=== PATIENT | male | born 1965 | race Caucasian/White ===

== ENCOUNTER 2019-11-23 15:13 | Observation (INO) | payer MEDICARE, OTHER, SELFPAY ==
[2019-11-23 16:58] VITALS: BP 134/81; PULSE 62; RESP 16; TEMP 36.6; O2SAT 98; BMI 32.5
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
[2019-11-23 19:44] LABS: Basophils # 0.1 10^3/uL (0.0-0.1); Eosinophils # 0.3 10^3/uL (0.0-0.8); Hematocrit 51.4 % (42.0-52.0); Hemoglobin 17.2 g/dL (11.7-16.6); Lymphocytes % 47.7 %; Mean Corpuscular HGB Conc 33.5 g/dL (30.0-36.0); Mean Corpuscular Volume 86.5 fL (80-94); Mean Platelet Volume 9.9 fL (7.4-10.4); Monocytes # 0.5 10^3/uL (0.2-0.9); Monocytes % 6.4 %; Neutrophils # 3.5 10^3/uL (1.8-7.7); Neutrophils % 41.8 %; Nucleated Red Blood Cells % 0 %; Platelet Count 365 10^3/cmm (130-400); Red Blood Count 5.94 10^6/uL (4.1-5.3); Red Cell Distribution Width 12.3 % (12.1-15.1); White Blood Count 8.3 10^3/uL (4.0-10.0)
[2019-11-23 19:57] LABS: Alanine Aminotransferase 36 U/L (0-41); Albumin Level 5.2 g/dL (3.5-5.2); Alkaline Phosphatase 104 IU/L (40-130); Anion Gap 17.6 (5-19); Aspartate Amino Transferase 28 U/L (0-40); Blood Urea Nitrogen 13 mg/dL (6-20); Calcium 10.6 mg/Dl (8.6-10.0); Carbon Dioxide 27 mmol/L (22-29); Chloride 101 mmol/L (98-107); Globulin 3.1 g/dL (1.3-4.6); Glomerular Filtration Rate 77.3 mL/min (90-130); Glucose 121 mg/dL (74-109); Potassium 4.6 mmol/L (3.5-5.1); Sodium 141 mmol/L (136-145); Total Bilirubin 0.6 mg/dL (0.15-1.2); Total Protein 8.3 g/dL (6.6-8.7)
[2019-11-23] MEDS: iohexol 300 mg/mL 100 mL Btl 95 ML IV (20:08)
[2019-11-23 20:47] VITALS: BP 121/72; PULSE 78; RESP 16; O2SAT 96
[2019-11-23 21:06] VITALS: RESP 16
[2019-11-23] MEDS: morphine 4 mg/mL SDV 1 mL IVP (21:06)
--- NOTE | 2019-11-23 21:47 | ECG_ITS ---
Measurements Intervals [place] Rate: 56 P: 58 [place]: 170 QRS: 26 QRSD: 119 T: 53 QT: 420 QTc: 407 SINUS BRADYCARDIA POSSIBLE RIGHT VENTRICULAR CONDUCTION DELAY [RSR (QR) IN V1/V2] PROBABLE LATERAL MYOCARDIAL INFARCTION [35 ms Q WAVE IN I/aVL/V5/V6], OF IN INDETERMINATE AGE No previous ECG available for comparison Electronically Signed On 11-24-2019 17:33:22 CHILLER OPERATOR by Yesi Montemayor M.D. [id number]
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
--- NOTE | 2019-11-23 22:33 | PC.NURSE ---
Patient having seizure like activity and tremors. Patient speaking through tremors and stating that his neck is hurting very badly and his head is hurting.
[2019-11-23] MEDS: LORazepam 2 mg/mL INJ 1 mL (22:36)
[2019-11-23] MEDS: sodium chloride 0.9% 1,000 ML 999 ML IV (22:37)
--- NOTE | 2019-11-23 22:37 | PC.NURSE ---
Placed seizure padding on the patient's rails, and placed the patient on the property assessment monitor. is at bedside and requested water, water was given and was informed that the patient is unable to have food or drink at this time.
[2019-11-23 22:39] VITALS: BP 151/84; PULSE 69; RESP 12; O2SAT 96
[2019-11-23 22:50] LABS: Troponin(5th) Baseline 12 ng/mL (0-15)
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
[2019-11-23] MEDS: iodixanol 320 mg/mL 100mL Btl IV (23:10)
[2019-11-23 23:38] LABS: Creatine Phosphokinase 137 U/L (39-308)
--- NOTE | 2019-11-23 23:47 | ECG_ITS ---
Measurements Intervals [place] Rate: 69 P: 40 [place]: 148 QRS: 14 QRSD: 126 T: 44 QT: 415 QTc: 445 SINUS RHYTHM POSSIBLE RIGHT VENTRICULAR CONDUCTION DELAY [RSR (QR) IN V1/V2] LATERAL MYOCARDIAL INFARCTION , OF INDETERMINATE AGE [40+ ms Q WAVE AND/OR ST/T AB ABNORMALITY IN I/aVL/V5/V6] No previous ECG available for comparison Electronically Signed On 11-24-2019 22:26:15 REHAB CONSULTANT by João Kunz M.D. [id number]
[2019-11-24] VITALS (7 sets, daily range): BP systolic 106–163; BP diastolic 68–95; PULSE 57–68; RESP 14–20; TEMP 36.3–37; O2SAT 95–98
[2019-11-24 00:07] LABS: Glucose Point of Care 134 mg/dL (70-110)
[2019-11-24 00:14] LABS: Troponin 5 2HR 11.71 ng/mL (0-15)
[2019-11-24 00:15] LABS: Troponin 5 2HR Delta -0.29 ABS# (0-10)
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
[2019-11-24] MEDS: sodium chloride 0.9% 1,000 ML 200 ML IV (01:12)
--- NOTE | 2019-11-24 03:47 | ECG_ITS ---
Measurements Intervals [place] Rate: 54 P: 51 [place]: 174 QRS: 8 QRSD: 121 T: 40 QT: 410 QTc: 392 SINUS BRADYCARDIA POSSIBLE RIGHT VENTRICULAR CONDUCTION DELAY [RSR (QR) IN V1/V2] PROBABLE LATERAL MYOCARDIAL INFARCTION [35 ms Q WAVE IN I/aVL/V5/V6], OF INDETERMINATE AGE No previous ECG available for comparison Electronically Signed On 11-24-2019 22:27:06 CORRECTIONS OFFICER by João Kunz M.D. [id number]
[2019-11-24 03:54] LABS: Anion Gap 13.6 (5-19); Blood Urea Nitrogen 14 mg/dL (6-20); Calcium 9.5 mg/Dl (8.6-10.0); Carbon Dioxide 25 mmol/L (22-29); Chloride 102 mmol/L (98-107); Glomerular Filtration Rate 87.3 mL/min (90-130); Glucose 183 mg/dL (74-109); Potassium 4.6 mmol/L (3.5-5.1); Sodium 136 mmol/L (136-145)
[2019-11-24] MEDS: HYDROcodone-acetaminophen 5-325 mg Tablet 1 TAB PO ×3 (04:11→12:34)
[2019-11-24] MEDS: sodium chloride 0.9% 1,000 ML 75 ML IV ×2 (04:13→11:14)
[2019-11-24 04:32] LABS: Basophils % 0.4 %; Eosinophils % 0.4 %; Hematocrit 46.1 % (42.0-52.0); Hemoglobin 15.5 g/dL (11.7-16.6); Lymphocytes # 2.3 10^3/uL (0.8-4.8); Lymphocytes % 23.6 %; Mean Corpuscular HGB Conc 33.6 g/dL (30.0-36.0); Mean Corpuscular Hemoglobin 30.1 pg (28.0-34.0); Mean Corpuscular Volume 89.5 fL (80-94); Mean Platelet Volume 10.2 fL (7.4-10.4); Monocytes # 0.4 10^3/uL (0.2-0.9); Monocytes % 4.2 %; Neutrophils % 71.2 %; Nucleated Red Blood Cells % 0 %; Platelet Count 279 10^3/cmm (130-400); Red Blood Count 5.15 10^6/uL (4.1-5.3); Red Cell Distribution Width 12.3 % (12.1-15.1); White Blood Count 9.8 10^3/uL (4.0-10.0)
--- NOTE | 2019-11-24 06:40 | PC.NURSE ---
Patient states, I do not know how much I weigh I guessed at 220 lbs. Bed scale states 203.8
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
--- NOTE | 2019-11-24 19:52 | PC.NURSE ---
Patient Discharge Patient discharged out the ER entrance by wheelchair with DC paper after it was explained and all questions and concerns answered. Patient help into passenger side of vehicle.
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
== END 2019-11-24 19:00 | disposition home or self-care (01) ==
LOC: ER 11-24 00:14 → MEDSURG 11-24 01:01
PROVIDERS: Admitting Provider Family Medicine; Emergency Provider Emergency Medicine; Visit Provider Family Medicine
DX: S39.012A Strain of muscle, fascia and tendon of lower back, initial encounter (principal); V87.7XXA Person injured in collision between other specified motor vehicles (traffic), initial encounter; M62.830 Muscle spasm of back; Z79.891 Long term (current) use of opiate analgesic; G89.29 Other chronic pain; M48.061 Spinal stenosis, lumbar region without neurogenic claudication
CPT/HCPCS: 12345; 36415; 36416; 70450; 70496; 70498; 71260; 72125; 72128; 72131; 73562; 74177; 80048; 80053; 82550; 82962; 84484; 85025; 93005; 96361; 96374; 96375; 96376; 99282; 99285; G0378; J0131; J2060; J2270; J7030; Q9967

== ENCOUNTER 2019-12-15 09:21 | Outpatient (CLI) | payer MEDICARE, SELFPAY ==
--- NOTE | 2019-12-15 09:35 | MR_ITS ---
WS: [id number] MRI of the cervical spine, 12/15/2019 Clinical Data: neck pain Comparison: CT cervical spine, 11/23/2019 Findings: The disc heights are normal. There are no compression fractures. No prevertebral soft tissue swelling is noted. The odontoid is unremarkable. The cervical spinal cord shows no cysts, masses, enlargement or abnormal signal. C2-C3: No canal stenosis, disc bulge or foraminal narrowing is seen. C3-C4: There is a small central disc protrusion causing mild canal stenosis. C4-C5: No canal stenosis, disc bulge or foraminal narrowing is seen. C5-C6: No canal stenosis, disc bulge or foraminal narrowing is seen. C6-C7: No canal stenosis, disc bulge or foraminal narrowing is seen. C7-T1: No canal stenosis, disc bulge or foraminal narrowing is seen. MR/MR cervical spin wo con* [id number] Impression: Minimal central disc protrusion at C3-C4.
--- NOTE | 2019-12-15 10:31 | XR_ITS ---
WS: [id number] Lateral views of cervical spine in the flexion, extension and neutral positions. 12/15/2019 Clinical Data: neck pain Comparison: None. Findings: There is no limitation of motion or subluxation on flexion or extension. No prevertebral soft tissue swelling is noted. The disc heights are normal. There are no compression fractures. XR/XR cervical spine fl/ex [id number] Impression: Negative for limitation of motion or subluxation on flexion or extension.
--- NOTE | 2019-12-15 10:31 | XR_ITS ---
WS: [id number] Lumbar spine with flexion, extension, and neutral lateral, 12/15/2019 Clinical Data: low back pain Comparison: None. Findings: No compression fractures or subluxation is seen.. No limitation of motion or subluxation is seen. The patient has had an anterior fusion of the L5-S1 level with a disc spacer placed. There are anteri or orthopedic screws in the L5 vertebral body and the S1 vertebral body. Moderate osteoarthritic arth ritic spurring is seen at L3 and L4. XR/XR lumbar spine f/e only [id number] Impression: 1. Stable anterior fusion at L5 and S1 with no subluxation on flexion or extens ion. 2. Negative for limitation of motion or subluxation on flexion or extension of the upper lumbar spine. 3. Moderate osteoarthritis of the L3 and L4 vertebral bodies.
== END 2019-12-15 09:22 | disposition home or self-care (01) ==
PROVIDERS: PCP Family Medicine; Visit Provider Licensed Practical Nurse
DX: M47.816 Spondylosis without myelopathy or radiculopathy, lumbar region (principal); M50.21 Other cervical disc displacement, high cervical region; Z98.1 Arthrodesis status
CPT/HCPCS: 72040; 72120; 72141

== ENCOUNTER 2019-12-21 08:07 | Outpatient (CLI) | payer MEDICARE, SELFPAY ==
--- NOTE | 2019-12-21 08:16 | MR_ITS ---
WS: [id number] MRI LUMBAR SPINE WITH CONTRAST TECHNIQUE: Sagittal T1, T2 and STIR imaging. Axial T1 and T2 imaging. Post gadolinium imaging was obt ained. CLINICAL INFORMATION: Post laminectomy COMPARISON: CT lumbar November 23, 2019 FINDINGS: Mild lumbar curve. No acute compression. Postoperative changes anterior interbody lumbar fusion L5-S1 . Laminectomy defects L5-S1 L1-L2: Mild annular bulging. Slight effacement of ventral thecal sac. Mild facet arthropathy. Spinal canal and foramen are patent. L2-L3: Mild annular bulging with slight effacement of the ventral thecal sac. Mild central canal sten osis. Foramen are patent. L3-L4: Mild annular bulging. Mild facet arthropathy. Spinal canal and foramen are patent. L4-L5: Mild disc bulging in combination with facet arthropathy results in moderate central canal sten osis. Narrowing of the subarticular recess bilaterally. Tiny left foraminal protrusion with mild left and no significant right foraminal narrowing. L5-S1: Postoperative changes anterior interbody lumbar fusion with laminectomy defects. Spinal canal and foramen are patent. Moderate facet arthropathy. No abnormal gadolinium enhancement. Visualized pelvic bony structures: Normal. Paravertebral soft tissues: Normal. MR/MR lumbar spine wo/w con [id number] IMPRESSION: 1. Prior postoperative changes anterior lumbar fusion L5-S1 with interbody fus ion. Associated laminectomy defects. 2. Moderate central canal stenosis L4-5 due to disc bulging with facet arthrop athy ligament flavum hypertrophy. Narrowing of the left greater than right mari cular recess. 3. Tiny left proximal foraminal protrusion with mild left L4-5 foraminal narro wing. 4. Mild annular bulging L2-3 with mild central canal stenosis. 5. Moderate facet arthropathy L4-L5 and L5-S1. 6. Spinal canal and foramen are patent at the L5-S1 level.
== END 2019-12-21 08:08 | disposition home or self-care (01) ==
LOC: RADWPI 08:16
PROVIDERS: PCP Family Medicine; Visit Provider Licensed Practical Nurse
DX: Z98.1 Arthrodesis status (principal); M48.061 Spinal stenosis, lumbar region without neurogenic claudication; M47.9 Spondylosis, unspecified
CPT/HCPCS: 72158; A9579

== ENCOUNTER → 2020-02-13 11:13 | Outpatient (BNVA) | payer MEDICARE, SELFPAY | PROVIDERS: PCP Family Medicine; Referring Provider Licensed Practical Nurse; Visit Provider Psychiatry & Neurology Neurology | DX: M54.9 Dorsalgia, unspecified (principal); M79.605 Pain in left leg; M79.604 Pain in right leg | CPT/HCPCS: 95886; 95909 ==

== ENCOUNTER → 2020-02-23 13:17 | Outpatient (BNVA) | payer MEDICARE, SELFPAY | PROVIDERS: PCP Family Medicine; Referring Provider Specialist; Visit Provider Anesthesiology Pain Medicine | DX: M48.061 Spinal stenosis, lumbar region without neurogenic claudication (principal); M47.816 Spondylosis without myelopathy or radiculopathy, lumbar region; M51.16 Intervertebral disc disorders with radiculopathy, lumbar region; M96.1 Postlaminectomy syndrome, not elsewhere classified; M54.9 Dorsalgia, unspecified | CPT/HCPCS: 99203; 99204 ==

== ENCOUNTER 2020-03-06 08:30 | Outpatient (RCR) | payer MEDICARE, SELFPAY | END 2020-03-08 23:59 | disposition home or self-care (01) | LOC: MPT 08:30 | PROVIDERS: PCP Family Medicine; Referring Provider Specialist; Visit Provider Specialist | DX: M51.17 Intervertebral disc disorders with radiculopathy, lumbosacral region (principal) | CPT/HCPCS: 97162 ==

== ENCOUNTER 2020-03-09 06:00 | Outpatient (RCR) | payer MEDICARE, SELFPAY | END 2020-04-08 23:59 | disposition home or self-care (01) | LOC: MPT 06:00 | PROVIDERS: PCP Family Medicine; Referring Provider Specialist; Visit Provider Specialist | DX: M51.17 Intervertebral disc disorders with radiculopathy, lumbosacral region (principal) | CPT/HCPCS: 97110; 97140; G0283 ==

== ENCOUNTER → 2020-03-15 10:31 | Outpatient (BNVA) | payer MEDICARE, SELFPAY | PROVIDERS: PCP Family Medicine; Visit Provider Family Medicine | DX: E11.9 Type 2 diabetes mellitus without complications (principal); M48.061 Spinal stenosis, lumbar region without neurogenic claudication; M54.16 Radiculopathy, lumbar region; Z13.220 Encounter for screening for lipoid disorders; Z13.6 Encounter for screening for cardiovascular disorders | CPT/HCPCS: 80053; 80061; 83036 ==

== ENCOUNTER → 2020-03-19 13:06 | Outpatient (BNVA) | payer MEDICARE, SELFPAY | PROVIDERS: PCP Family Medicine; Visit Provider Anesthesiology Pain Medicine | DX: M51.17 Intervertebral disc disorders with radiculopathy, lumbosacral region (principal); M96.1 Postlaminectomy syndrome, not elsewhere classified; M54.9 Dorsalgia, unspecified | CPT/HCPCS: 64483; 64484; J1040; J2001; J3490 ==

== ENCOUNTER → 2020-04-04 10:37 | Outpatient (BNVA) | payer MEDICARE, SELFPAY | PROVIDERS: PCP Family Medicine; Visit Provider Anesthesiology Pain Medicine | DX: M48.061 Spinal stenosis, lumbar region without neurogenic claudication (principal); M47.816 Spondylosis without myelopathy or radiculopathy, lumbar region; M51.16 Intervertebral disc disorders with radiculopathy, lumbar region; M54.9 Dorsalgia, unspecified; M96.1 Postlaminectomy syndrome, not elsewhere classified; Z79.891 Long term (current) use of opiate analgesic | CPT/HCPCS: 99213 ==

== ENCOUNTER 2020-04-09 | Outpatient (RCR) | payer MEDICARE, SELFPAY | END 2020-05-03 23:00 | disposition home or self-care (01) | LOC: MPT | PROVIDERS: PCP Family Medicine; Referring Provider Specialist; Visit Provider Specialist | DX: M51.17 Intervertebral disc disorders with radiculopathy, lumbosacral region (principal) | CPT/HCPCS: 64483; 97110; 97140; J1040; J2001; J3490 ==

== ENCOUNTER → 2020-04-09 13:09 | Outpatient (BNVA) | payer MEDICARE, SELFPAY | PROVIDERS: PCP Family Medicine; Visit Provider Anesthesiology Pain Medicine | DX: M51.16 Intervertebral disc disorders with radiculopathy, lumbar region (principal); M51.17 Intervertebral disc disorders with radiculopathy, lumbosacral region; M54.9 Dorsalgia, unspecified | CPT/HCPCS: 64483; 64484 ==

== ENCOUNTER → 2020-05-03 14:11 | Outpatient (BNVA) | payer MEDICARE, SELFPAY | PROVIDERS: PCP Family Medicine; Visit Provider Anesthesiology Pain Medicine | DX: M47.816 Spondylosis without myelopathy or radiculopathy, lumbar region (principal); M48.061 Spinal stenosis, lumbar region without neurogenic claudication; M51.16 Intervertebral disc disorders with radiculopathy, lumbar region; M96.1 Postlaminectomy syndrome, not elsewhere classified; M54.9 Dorsalgia, unspecified; Z79.891 Long term (current) use of opiate analgesic | CPT/HCPCS: 99213; 99214 ==

== ENCOUNTER → 2020-05-31 14:11 | Outpatient (BNVA) | payer MEDICARE, SELFPAY | PROVIDERS: PCP Family Medicine; Visit Provider Anesthesiology Pain Medicine | DX: M48.062 Spinal stenosis, lumbar region with neurogenic claudication (principal); M48.061 Spinal stenosis, lumbar region without neurogenic claudication; M51.16 Intervertebral disc disorders with radiculopathy, lumbar region; M47.816 Spondylosis without myelopathy or radiculopathy, lumbar region; M54.9 Dorsalgia, unspecified; M96.1 Postlaminectomy syndrome, not elsewhere classified | CPT/HCPCS: 99213; 99214 ==

== ENCOUNTER 2020-07-03 08:29 | Outpatient (CLI) | payer MEDICARE, SELFPAY ==
--- NOTE | 2020-07-03 09:00 | IR_ITS ---
WS: [id number] LUMBAR MYELOGRAM HISTORY: neurogenic claudication COMPARISON: None available. FLUOROSCOPY TIME: 1.2 minutes. Procedure, risks and complications were explained to the patient. Risks including bleeding, infection , headaches, allergic reaction and seizures. Consent has been obtained. With the patient in prone position the skin over the lumbar region is cleansed with ChloraPrep and an esthetized with lidocaine. 22-gauge spinal needle is inserted into the thecal sac at the appropriate level determined by fluoroscopy. Omnipaque 240; 13 ml is injected slowly under fluoroscopy with no co mplications. Needle bevel is perpendicular to the longitudinal fibers of the dura. Stylet is reinsert ed prior to removal of the needle. Patient tolerated the procedure well. Patient will proceed to CT f or further evaluation. Prior anterior cervical fusion with interbody spacer at L5-S1. Disc spaces maintained. There are smal l osteophytes along the endplates throughout the lumbar spine. No fractures. Mild facet joint arthrit is at L4-5 and L5-S1. The posterior lumbar vertebral body alignment demonstrates less than 2 mm retro listhesis of L3 with no instability during flexion or extension. Mild narrowing of the facet joints a t L3-4 and L4-5, greatest at L4-5. Well-rounded calcifications RIGHT upper abdomen with the largest calcification measuring 2.4 cm consi stent with cholelithiasis. IR/[place] [id number] IMPRESSION: 1. Prior anterior lumbar fusion with interbody spacer at L5-S1 with no apparen t complications. 2. Moderate encroachment on the thecal sac at the L4-5 level. 3. No lumbar spine instability. 4. Cholelithiasis.
[2020-07-03] MEDS: iohexol 240 mg/mL 50 mL Btl INTRATHECA (09:39)
--- NOTE | 2020-07-03 11:30 | CT_ITS ---
WS: [id number] CT MYELOGRAM LUMBAR SPINE HISTORY: NEUROGENIC CLAUDICATION TECHNIQUE: Contiguous 2.5 mm axial imaging performed from T12 through the mid sacral level. Bone and soft tissue windows reviewed. Sagittal and coronal reformats are submitted and reviewed. DLP: 2094.[address] scans at [facility] use at least one of these dose optimization techniques: automat ed exposure control; mA and/or kV adjustment per patient size (includes targeted exams where dose is matched to clinical indication); or iterative reconstruction. COMPARISON: 11/23/2019 Very good opacification of the thecal sac with contrast. Prior anterior fusion screws at all 5 S1 wit h interbody spacer. The disc space is maintained and there is fusion across the spacer. No lumbar spi ne fracture. Small endplate osteophytes at all levels. L1-L2: Very mild annular disc bulging with encroachment upon the ventral thecal sac. No stenosis. L2-L3: Mild annular disc bulging and osteophytic ridging. Encroachment and flattening of the ventral thecal sac. Very mild central stenosis. L3-L4: Very mild annular disc bulging and osteophytic ridging. No significant stenosis. L4-L5: Mild annular disc bulging. Moderate ligamentum flavum hypertrophy and facet arthritis. Disc os teophyte protrusion extends into the LEFT subarticular recess and proximal foramen. There is a very s mall central disc protrusion. Combination of factors resulting in moderate to severe central stenosis with moderate LEFT subarticular recess stenosis and mild on the RIGHT. L5-S1: Diffuse annular disc bulging. Moderate sized RIGHT hemilaminectomy defect. No stenosis. Very mild degenerative changes in the SI joints. No bone destruction. No lucency around the screws at L5-S1. CT/CT lumbar spine w con [id number] IMPRESSION: 1. Moderate to severe central stenosis at L4-5 with moderate LEFT subarticular recess and mild RIGHT subarticular recess stenosis. 2. Small central and LEFT subarticular disc osteophyte complex at L4-5 level c ontributing to the stenoses. 3. Prior anterior lumbar fusion with interbody spacer at L5-S1 with no complic ations. 4. Mild central stenosis at L2-3.
== END 2020-07-03 08:30 | disposition home or self-care (01) ==
LOC: RADWPI 08:32
PROVIDERS: PCP Family Medicine; Visit Provider Anesthesiology Pain Medicine
DX: M48.062 Spinal stenosis, lumbar region with neurogenic claudication (principal); M25.78 Osteophyte, vertebrae; M43.27 Fusion of spine, lumbosacral region; K80.20 Calculus of gallbladder without cholecystitis without obstruction
CPT/HCPCS: 62304; 72120; 72132; Q9966

== ENCOUNTER → 2020-07-10 08:51 | Outpatient (BNVA) | payer MEDICARE, SELFPAY | PROVIDERS: PCP Family Medicine; Visit Provider Anesthesiology Pain Medicine | DX: M48.062 Spinal stenosis, lumbar region with neurogenic claudication (principal); M48.061 Spinal stenosis, lumbar region without neurogenic claudication; M51.16 Intervertebral disc disorders with radiculopathy, lumbar region; M47.816 Spondylosis without myelopathy or radiculopathy, lumbar region; M96.1 Postlaminectomy syndrome, not elsewhere classified; M54.9 Dorsalgia, unspecified; Z79.891 Long term (current) use of opiate analgesic | CPT/HCPCS: 99213; 99214 ==

== ENCOUNTER → 2020-08-24 08:42 | Outpatient (BNVA) | payer MEDICARE, SELFPAY | PROVIDERS: PCP Family Medicine; Visit Provider Anesthesiology Pain Medicine | DX: M48.062 Spinal stenosis, lumbar region with neurogenic claudication (principal); M48.061 Spinal stenosis, lumbar region without neurogenic claudication; M47.816 Spondylosis without myelopathy or radiculopathy, lumbar region; M51.16 Intervertebral disc disorders with radiculopathy, lumbar region; M54.9 Dorsalgia, unspecified; M96.1 Postlaminectomy syndrome, not elsewhere classified; Z79.891 Long term (current) use of opiate analgesic | CPT/HCPCS: 99213 ==

== ENCOUNTER → 2020-09-04 09:32 | Outpatient (BNVA) | payer MEDICARE, SELFPAY | PROVIDERS: PCP Family Medicine; Visit Provider Family Medicine | DX: E11.9 Type 2 diabetes mellitus without complications (principal); Z23 Encounter for immunization; Z01.818 Encounter for other preprocedural examination; M48.062 Spinal stenosis, lumbar region with neurogenic claudication | CPT/HCPCS: 80053; 83036; 85025 ==

== ENCOUNTER → 2020-10-03 11:03 | Outpatient (BNVA) | payer MEDICARE, SELFPAY | PROVIDERS: PCP Family Medicine; Visit Provider Emergency Medicine | DX: Z20.828 Contact with and (suspected) exposure to other viral communicable diseases (principal); Z01.818 Encounter for other preprocedural examination | CPT/HCPCS: 87635 ==

== ENCOUNTER 2020-10-17 14:10 | Inpatient (IN) | payer MEDICARE, SELFPAY ==
[2020-10-08 08:23] VITALS: BMI 32.5
--- NOTE | 2020-10-08 08:34 | PC.PT ---
pt seen for pre-op education on lumbar spinal fusion precautions. log roll instruction and review, body mechanics and gentle abdominal strengthening. all questions answered, no further therapy at this time.
--- NOTE | 2020-10-08 11:41 | ANES.PREANE2 ---
Pre-Anesthetic Assessment Pre-Anesthetic Assessment: Height/Weight: Height 1.75 m Weight 99.79 kg Preop Diagnosis: Lumbar stenosis Proposed Procedure: Operation Date: 10/10/20 07:00 Proposed Procedures p L3- Ls1 fusion, L3/4 L4/5 PLIF 64230 ,01767, 70883, 13393, 64354 07162 M48.062(Not Applicable) - Jam Ordaz, DO Was Beta Joe taken within 24 hours: N/A Social: Social History: No alcohol and No tobacco Exam: Pre-Anes Outpt Exam: alert, oriented x 3, clear to auscultation bilaterally and regular rate & rhythm Airway: Submandibular: WNL MP: 2 Dentition: False Pulmonary: Pulmonary: None reported CV/HEM: CV/HEM: None reported : : None reported Hepatic: Hepatic: None reported GI: GI: None reported Metabolic: Metabolic: DM Musc/skel: Musc/skel: Lower Back Pain Comments: Chronic back pain Neuropsych: Neuropsych: None reported Anesthetic Plan: ASA status: 3 Anesthesia: General Risk of > 500 ml blood loss (7ml/kg in children): Yes, adequate IV access and fluids planned PFSH Anesthesia PFSH: Medical History 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 03/1992 L5-S1 decompression, reexploration. 1998 L5-S1 anterior/posterior fusion fixation Family History Mother Cancer lung cancer Brother Diabetes Social History Smoking and tobacco status: never smoked Alcohol intake: never Lives independently: Yes Household members: spouse Housing: House Marital status: service: No Current occupational status: disabled History of recent travel: No Data Anesthesia Cardiac Studies: No Data to Display
[2020-10-17] VITALS (11 sets, daily range): BP systolic 94–147; BP diastolic 52–113; PULSE 69–78; RESP 9–19; TEMP 36.2–36.6; O2SAT 92–100
--- NOTE | 2020-10-17 | XR_ITS ---
WS: [id number] XR lumbar spine 2-3V* [id number] REASON FOR EXAM: LUMBAR STENOSIS WITH NEUROGENIC CLAUDICATION FINDINGS: Previous anterior discectomy with screw placement at L5 and S1, interbody fusion. Currently, placement of pedicle screws bilaterally at L4, L5, S1. Interbody fusion device at L4-L5. S urgical appliance appears in proper position and alignment. XR/XR lumbar spine 2-3V* [id number] IMPRESSION: Pedicle screw placement and interbody fusion device placement as above.
--- NOTE | 2020-10-17 | SCC_ITS ---
Procedure Done: 1. Interbody with Posterolateral fusion L4/5 2. Instrumentation L4-S1 3. Placement of Cage L4/5 4. Lamainecomy L4 5. Laminectomy with partial facetecomies bilateral L3/4 6. Revison Laminectomy with partial facetectomies L5/s1 Bilateral 7. Use of autograph from same incision 8. Bone Marrow aspirate for left L4 pedicle 9. Use of allograft 21.4 seconds of fluoroscopic guidance, for a cumulative dose of 106.26 mGy, was provided to Dr. Ordaz by the radiology department. C-arm images of the lumbar spine were saved for the patient's permanent record. [facility]
--- NOTE | 2020-10-17 09:16 | W.PM.OPSUD ---
Surgery/Procedure H&P Update DATE OF PROCEDURE: October 17, 2020 DATE H&P PERFORMED: 08/30/20 H&P UPDATE INFORMATION: I have reviewed H&P completed within last 30 days, I have examined patient prior to procedure and No changes to prior documentation PREOP DIAGNOSIS: Lumbar stenosis PLANNED PROCEDURE: Operation Date: 10/17/20 10:40 Proposed Procedures p L3- Ls1 fusion, L3/4 L4/5 PLIF 51445 ,63586, 75374, 02348, 89275 32915 M48.062(Not Applicable) - Jam Ordaz DO
[2020-10-17] MEDS: gabapentin 300 mg Capsule PO (09:24)
[2020-10-17] MEDS: sodium chloride 0.9% 1,000 ML 30 ML IV (09:34)
--- NOTE | 2020-10-17 09:40 | P.ANESUD_ITS ---
Pre-Anesthetic Update Pre-Anesthetic Assessment: Date of Surgery/Procedure: 10/17/20 Preop Bhavani gnosis: Lumbar stenosis Proposed Procedure: Operation Date: 10/17/20 10:40 Proposed Procedures p L3- Ls1 fusion, L3/4 L4/5 PLIF 44626 ,07056, 34286, 59401, 91353 50131 M48.062(Not Applicable) - Jam Ordaz, DO Any changes to Pre-Anesthetic Assessment?: No Last Intake: Intake Last Liquid Date 10/16/20 Last Liquid Time 15:00 Last Solid Date 10/16/20 Last Solid Time 15:00 Vitals: Temperature 97.4 F L 10/17/20 09:08 Temperature Source Temporal Artery S can 10/17/20 09:08 Pulse Rate 73 10/17/20 09:08 Respiratory Rate 16 10/17/20 09:08 Blood Pressure 147/90 10/17/20 09:08 Blood Pressure Iona n 109 10/17/20 09:08 Pulse Oximetry 97 10/17/20 09:08 Oxygen Delivery Me thod 10/17/20 09:08 Exam: Pre-Anes Outpt Exam: alert, oriented x 3, clear to auscultation bilaterally and regular rate & rhythm Cardiac Studies: No Data to Display
[2020-10-17 09:43] LABS: Glucose Point of Care 128 mg/dL (70-110)
[2020-10-17] MEDS: heparin, porcine 1,000 unit/mL INJ 10 mL 10000 UNIT IRRIGATION (11:11)
[2020-10-17 14:16] LABS: Glucose Point of Care 140 mg/dL (70-110)
--- NOTE | 2020-10-17 15:52 | P.OP_ITS ---
Operative Report Date of procedure: October 17, 2020 Pre-op Diagnosis: Lumbar stenosis Post-op diagnosis: same Procedure Done: 1. Interbody with Posterolateral fusion L4/5 2. Instrumentation L4-S1 3. Placement of Cage L4/5 4. Lamainecomy L4 5. Laminectomy with partial facetecomies bilateral L3/4 6. Revison Laminectomy with partial facetectomies L5/s1 Bilateral 7. Use of autograph from same incision 8. Bone Marrow aspirate for left L4 pedicle 9. Use of allograft Surgeon: Jam Ordaz Anesthesia: General Estimated blood loss (mL): 350 Condition: stable Disposition: PACU Procedure: 1. Interbody with Posterolateral fusion L4/5 2. Instrumentation L4-S1 3. Placement of Cage L4/5 4. Lamainecomy L4 5. Laminectomy with partial facetecomies bilateral L3/4 6. Revison Laminectomy with partial facetectomies L5/s1 Bilateral 7. Use of autograph from same incision 8. Bone Marrow aspirate for left L4 pedicle 9. Use of allograft Patient was brought to the operative suite placed in the prone position after undergoing neuro monitoring neuro monitoring was stable throughout the entire case. Patient was then flipped into the prone position all areas of [id number] padded patient was prepped and draped normal sterile fashion skin incision made over the L3-S1 levels using previous skin incision where the L5-S1 laminectomy was done previously. Subperiosteal dissection was made from the tips of the transverse processes from L4 down to S1 and the ala. And then lamina were exposed at L3. Retractors were placed. Attention was brought to getting bone marrow aspirate from the L4 pedicle. The region of cell insertion device was inserted and bone marrow was aspirated from the L4 vertebral body approximate 20 cc. Extension was brought to placing pedicle screws pedicle screws were placed at L4-L5 and S1. This was done by using the drill followed by the gearshift using the ball pedicle feeler and then placement of the screws 50s were used at L4 and L5 bilaterally and 45's were used at S1 and these were all 7.5 millimeter screws. Once all the screws were placed and attention was brought to perform the laminectomy at L4 this was done with rongeur high-speed drill and Kerrison rongeurs and curettes once the ligamentum flavum and lamina and partial facetectomies were performed bilaterally then attention was brought down to the L5-S1 level which was previously done scar tissue was debrided and using curette to find the outline of the previous laminectomy this was identified high-speed drill was then again used to perform the laminectomy laminectomy brought out wider and more superiorly connecting actually the L5-S1 level to the L4-5 level once it was felt to be adequately decompressed and was brought to placing the L4-5 cage the L5 nerve and dural sac were retracted medially discectomies performed using knife followed by jasiel up to a size 12 shaver using curettes and pituitary and endplate scrapers to prepare the disc base autograft allograft were packed into the front of the disc base and then the [place] cage packed with autograft and allograft osteoamp was placed this was a size 12 cage once the cages placed and felt to be in adequate condition on both the AP lateral x-rays then attention was brought to performing the castorena inectomy at L3 this was done bilaterally taking down the lamina and partial facetectomies bilaterally and using Kerrison rongeurs and curettes. The ligamentum flavum was taken down to the top part of the L4 lamina and nerves were felt to be adequately decompressed wounds were irrigated deep drain was placed AP lateral fluoroscopy was taken to ensure that the hardware is improved positions. The bone was decorticated and bone graft placed into the posterior lateral gutters from L4-S1 bilaterally this was the ostium sponge as well. Once this was completed then the thoracolumbar fascia was closed with 0 Vicryl skin was closed with 2-0 Vicryl and Monocryl and glue sterile dressings were applied and patient was transferred to the PACU in stable condition.
--- NOTE | 2020-10-17 16:01 | PC.NURSE ---
1550 to room via bed, accompanied by OR nurse CHAVA Love, and Dax, ROCK. Patient VSS, moves all extremities, opens eyes to voice, lethargic. at bedside.
--- NOTE | 2020-10-17 16:12 | PM.CONSULT ---
Providers/Reason For Consult Consulting Physican/Specialty*: Todd Leon MD/internal medicine Reason for Consult*: Management of medical problems?type 2 diabetes mellitus Attending Physician: Jam Ordaz DO Primary Care Provider: Angelica Keita MD History of Present Illness History of Present Illness Papito Flores is a 55 year old male with past medical history of spinal stenosis, type 2 diabetes mellitus on Metformin 1000 mg twice daily with history of 3 surgeries of his lumbar spine, 2 decompressions of L5-S1 and L5-S1 anterior fusion who underwent laminectomy and instrumentation of L4-S1 today for pain on anterior lateral and posterior side of the thigh which is making him unable to sit for any period of time. Medicine was consulted for management of medical comorbidities. Patient states his diabetes is fairly well controlled and he is only on Metformin as an outpatient. He denies any reaction to anesthesia in the past, seizure-like activity, headache, fever, cough, difficulty in breathing at rest or exertion, denies any chest pain on rest or exertion, dysuria, diarrhea. Though on review of labs it seems patient was Covid positive on October 03, 2020. He states he remain asymptomatic during the whole course, afebrile without any difficulty in breathing. Recent HBA1c 9.3 in July. He does not check his blood sugars at home. Currently on examination patient lying comfortably in bed in ICU where he was moved postoperatively as an overflow from medical/surgical floor, able to have complete conversation without any difficulty in breathing, blood pressure 140/80 with heart rate of 74 bpm on 75 cc of fluid, saturating 96% on room air complaining of pain down right leg but no pain in left leg able to wiggle his toes without any problem bilaterally asking for food. No labs in the system. Review of Systems Const: Denies: fever(s), chills, body aches, change in appetite, change in weight, malaise, night sweats, diaphoresis, change in sleep pattern, daytime sleepiness or snoring Eyes: Denies: change in vision, blurry vision, photophobia, eye discomfort or eye discharge ENMT: Denies: throat pain, enlarged tonsils, hoarseness, mouth pain, oral sores, dry mouth, tinnitus, nasal congestion or post nasal drip Card: Denies: chest pain, palpitations, irregular heart rhythm, edema, swelling of feet/ankles, lightheadedness, syncope, pre-syncope, dyspnea on exertion, orthopnea, leg pain with exertion or acrocyanosis Resp: Denies: dyspnea, productive cough, non-productive cough, wheezing, stridor, pain on inspiration, change in phlegm color, hemoptysis or chest congestion GI: Denies: abdominal pain, nausea, vomiting, hematemesis, coffee ground emesis, dysphagia, heartburn, diarrhea, constipation, bloating, GI cramping, change in bowel habits, pain on defecation, hematochezia or melena : Denies: flank pain, difficulty urinating, dysuria, urinary frequency, urinary urgency, urinary hesitancy, urinary dribbling, difficulty starting urination, change in urine stream, nocturia or hematuria Musc: Denies: neck pain, back pain, extremity pain, joint pain, joint swelling, joint redness, joint stiffness or limited range of motion Neuro: Denies: headache(s), numbness in extremities, weakness in extremities, sensory changes, lack of coordination, difficulty walking, frequent falls, dizziness, vertigo, confusion, Slurred speech present, difficulty communicating thoughts or seizure-like activity Psych: Denies: anxiety, depression, mood swings, panic attacks, hopelessness or irritability Endo: Denies: polyuria, polydipsia, tired all the time, cold intolerance, excessive sweating, flushing or heat intolerance Eliazar/Lymph: Denies: easy bruising or easy bleeding All/Imm: Denies: tongue swelling, facial swelling or acute wheezing Meds/Allergies Home Medications and Allergies Home Medications Medication Instructions Recorded Confirmed Last Taken Type acetaminophen 325 mg capsule 650 mg PO Q6H PRN 12/07/19 10/17/20 10/16/20 History ibuprofen 200 mg tablet 600 mg PO Q6H PRN 12/07/19 10/08/20 Unknown History cetirizine 10 mg capsule 10 mg PO DAILY 03/15/20 10/17/20 10/16/20 History tramadol 50 mg tablet 50 mg PO TID PRN 30 Days #90 tab 08/24/20 10/17/20 10/13/20 Rx Bone Growth Stimulator E0748 #1 ea 09/21/20 10/03/20 Unknown Rx metformin 1,000 mg tablet 1,000 mg PO BID 30 Days #60 tab 11/10/17/20 10/16/20 Rx Allergies Allergy/AdvReac Type Severity Reaction Status Date / Time morphine Allergy Severe muscle Verified 10/08/20 08:15 tremors, convulsions Current Medications Current Medications Generic Name Dose Route Start Last Admin Trade Name Kami PRN Reason Stop Dose Admin Sodium Chloride 1,000 mls @ 30 mls/hr 10/17/20 09:15 10/17/20 09:34 Sodium Chloride 0.9% IV 10/18/20 09:14 30 mls/hr .Q24H KATHERYN Administration PFSH Acute PFSH: Medical History (Updated 10/17/20 @ 17:58 by Todd Leon MD) Back pain Cervical disc disorder with myelopathy of mid-cervical region COVID-19 Facet arthritis, degenerative, lumbar spine Headache due to injury of head and neck Intervertebral disc disorder of cervical region with myelopathy Intervertebral disc disorder with radiculopathy of lumbar region Intervertebral disc disorder with radiculopathy of lumbosacral region Lumbar stenosis with neurogenic claudication Spinal stenosis of lumbar region with radiculopathy Type 2 diabetes mellitus Surgical History H/O hernia repair History of lumbar fusion Previous back surgery 11/1991 L5-S1 decompression. 03/1992 L5-S1 decompression, reexploration. 1998 L5-S1 anterior/posterior fusion fixation Family History Mother Cancer lung cancer Brother Diabetes Social History Smoking and tobacco status: never smoked Alcohol intake: never Lives independently: Yes Household members: spouse Housing: House Marital status: service: No Current occupational status: disabled History of recent travel: No Vitals/I&O/Wt Last Vital Signs Temp 97.4 F L 10/17/20 09:08 Pulse 69 10/17/20 15:10 Resp 16 10/17/20 09:08 BP 102/52 10/17/20 15:10 Pulse Ox 98 10/17/20 15:10 10/17/20 10/17/20 10/17/20 06:59 14:59 22:59 Intake Total 60 / 60 Balance 60 / 60 Physical Exam Narrative: EXAM NARRATIVE: EXAM NARRATIVE: General: In acute distress because of pain in the right leg, AOx3. HEENT: PERRLA, pupils bilaterally equal and reactive Chest: Normal vesicular breath sounds bilaterally, good air entry bilaterally no added sounds. CVS: S1-S2 regular, no murmurs, no tachycardia, no gallops, no rubs Abdomen: Soft, nontender, no organomegaly, bowel sounds present, Neuro: No focal deficits, no facial deformity, AO x3, moving both upper limbs without any problem, wiggling toes of both feet without any problem Urinary Catheter Management^: F: Cath Placed During This Visit: yes Urinary Catheter Date of Insertion: 10/17/20 Urinary Catheter Time of Insertion: 10:30 A&P Assessment and plan (1) Type 2 diabetes mellitus: Status: Acute Qualifiers: Diabetes mellitus complication status: without complication Diabetes mellitus prison insulin use: without manager terminal use Qualified Code(s): E11.9 - Type 2 diabetes mellitus without complications (2) Lumbar stenosis with neurogenic claudication: Status: Acute (3) COVID-19: Status: Acute Additional A&P Information Check stat labs including CBC, CMP, iron panel, TSH. Type 2 diabetes mellitus: Recent HBA1c- 9.3 Start patient on insulin sliding scale at low-dose protocol before meals and at bedtime. For now hold oral hypoglycemics. Most likely on discharge patient needs a combination of Metformin and sitagliptin. When ready to eat from surgical point of view start patient on carb consistent diet. Recent COVID-19: Patient's COVID-19 PCR positive on October 03, 2020 As patient has finished 14-day course of quarantine with 14 today today and remains asymptomatic does not need isolation precautions. Currently patient does not have any symptoms and is saturating more than 96% on room air. Portable chest x-ray. Lumbar stenosis: Postoperative day 0. Anticoagulation, diet, pain medication, ambulation, physical therapy, bowel regimen, perioperative antibiotics as per the surgical team. Monitor vitals, bilateral total capillary refill, neurochecks. Monitor blood pressures. Goal blood pressure less than 140/90 mmHg. We will change medications as per the blood work and clinical course. Thank you for involving me in care of Mr. Flores. Please feel free to call me with any questions. Consult Attestations Medical Necessity Statement: As per primary team. Time Spent in Patient Care: Greater than 35 minutes (>than 50% of time spent in counselling and/or direct pt care on unit). Coding Level of Care Code Acute Stage Set Up Worker for Chg Fwd Diagnoses Type 2 diabetes mellitus E11.9 Diabetes mellitus complication status: without complication Diabetes mellitus manager terminal insulin use: without prison use Lumbar stenosis with neurogenic claudication M48.062 COVID-19 U07.1
[2020-10-17] MEDS: ketorolac 30 mg/mL INJ IVP ×2 (16:20→22:26)
[2020-10-17] MEDS: lactated ringers 1,000 ML 90 ML IV (16:21)
[2020-10-17] MEDS: HYDROcodone-acetaminophen 5-325 mg Tablet PO (16:48)
[2020-10-17 17:01] LABS: Basophils # 0.1 10^3/uL (0.0-0.1); Basophils % 0.3 %; Eosinophils % 0.3 %; Hematocrit 44.8 % (42.0-52.0); Hemoglobin 14.9 g/dL (11.7-16.6); Lymphocytes # 1.8 10^3/uL (0.8-4.8); Mean Corpuscular HGB Conc 33.3 g/dL (30.0-36.0); Mean Corpuscular Hemoglobin 29.4 pg (28.0-34.0); Mean Corpuscular Volume 88.5 fL (80-94); Mean Platelet Volume 9.7 fL (7.4-10.4); Monocytes # 0.7 10^3/uL (0.2-0.9); Monocytes % 4.5 %; Neutrophils # 12.39 10^3/uL (1.8-7.7); Neutrophils % 82.4 %; Nucleated Red Blood Cells % 0 %; Platelet Count 313 10^3/cmm (130-400); Red Blood Count 5.06 10^6/uL (4.1-5.3); Red Cell Distribution Width 12.4 % (12.1-15.1)
[2020-10-17 17:51] LABS: Alanine Aminotransferase 55 U/L (0-41); Albumin Level 3.9 g/dL (3.5-5.2); Alkaline Phosphatase 93 IU/L (40-130); Aspartate Amino Transferase 46 U/L (0-40); Blood Urea Nitrogen 14 mg/dL (6-20); Calcium 8.6 mg/dL (8.5-10.5); Carbon Dioxide 25 mmol/L (22-29); Chloride 102 mmol/L (98-107); Globulin 2.7 g/dL (1.3-4.6); Glucose 168 mg/dL (65-115); Iron 51 ug/dL (59-158); Osmolality Calculated 288 mOsm/kg (285-295); Percent Saturation 19.2 % (20-50); Sodium 137 mmol/L (136-145); Total Bilirubin 0.4 mg/dL (0.15-1.2); Total Iron Binding Capacity 265 mcg/dl; Total Protein 6.6 g/dL (6.6-8.7); Unsaturated Iron Binding 214 ug/dL (112-347)
--- NOTE | 2020-10-17 17:57 | XRR_ITS ---
PROCEDURE INFORMATION: Exam: XR Chest, 1 View Exam date and time: 10/17/2020 6:17 PM Age: 55 years old Clinical indication: Condition or disease; Other: Covid; Additional info: Recent covid-19 TECHNIQUE: Imaging protocol: XR of the chest Views: 1 view. COMPARISON: CT chest abd pel w con* 11/23/2019 8:19 PM FINDINGS: Lungs: Interstitial prominence without acute infiltrate. Pleural space: No significant pleural effusion. Heart/Mediastinum: Cardiac silhouette upper limits of normal in size. Bones/joints: Degenerative change. XR/XR chest 1V portable [id number] IMPRESSION: No acute airspace or pleural disease.
[2020-10-17 17:59] LABS: Glucose Point of Care 182 mg/dL (70-110)
[2020-10-17] MEDS: TRAMadol 50 mg Tablet PO (18:02)
[2020-10-17] MEDS: docusate sodium 100 mg Capsule PO (18:03)
--- NOTE | 2020-10-17 18:36 | ANE.PACU2 ---
Inpatient post-anesthesia follow up: Airway intact: Yes Vital signs: Temperature 97.1 F Pulse Rate 74 Respiratory Rate 16 Blood Pressure 144/113 Pulse Oximetry 96 Oxygen Delivery Me thod Room Air Oxygen Flow Rate 5 Fraction of Inspir ed Oxygen Hydration adequate: Yes Nausea and vomiting: No Pain level: 3 Mental status: Baseline
[2020-10-17] MEDS: sodium chloride 0.9% 500 ML 999 ML IV (18:57)
--- NOTE | 2020-10-17 19:19 | PC.NURSE ---
RIGHT LEG pain Patient complaining of right lateral calf pain since returning from surgery. Patient and report he has had issues with this but not this bad. No redness or swelling compared to left leg. No change in pain with flexion. Report given to CHAVA Stringer. Will continue to monitor for DVT or call physician if not improving.
[2020-10-17] MEDS: acetaminophen 325 mg Tablet 650 MG PO (19:44)
[2020-10-17 20:06] LABS: Glucose Point of Care 152 mg/dL (70-110)
[2020-10-17 21:45] LABS: D Dimer 2.36 ug/mIFEU (0-0.59)
[2020-10-17] MEDS: fentaNYL 50 mcg/mL INJ 2mL 25 MCG IVP (22:50)
[2020-10-18] VITALS (7 sets, daily range): BP systolic 94–128; BP diastolic 56–74; PULSE 70–77; RESP 13–20; TEMP 36.6–37.6; O2SAT 92–96
--- NOTE | 2020-10-18 00:21 | PC.NURSE ---
Report given to CHAVA Chandler. Patient to be transferred to Med Surg [id number] with all belongings
--- NOTE | 2020-10-18 01:34 | PC.NURSE ---
150 mL output from hemovacc
--- NOTE | 2020-10-18 02:29 | PC.NURSE ---
Report called to Lior LARSEN, Patient transferred to med/surg with all belongings via this RN
[2020-10-18 02:58] LABS: Alanine Aminotransferase 41 U/L (0-41); Albumin Level 3.5 g/dL (3.5-5.2); Alkaline Phosphatase 79 IU/L (40-130); Anion Gap 13.2 (5-19); Aspartate Amino Transferase 43 U/L (0-40); Blood Urea Nitrogen 17 mg/dL (6-20); Calcium 8.1 mg/dL (8.5-10.5); Carbon Dioxide 26 mmol/L (22-29); Chloride 101 mmol/L (98-107); Globulin 2.2 g/dL (1.3-4.6); Glucose 204 mg/dL (65-115); Osmolality Calculated 289 mOsm/kg (285-295); Potassium 4.2 mmol/L (3.5-5.1); Sodium 136 mmol/L (136-145); Total Bilirubin 0.5 mg/dL (0.15-1.2); Total Protein 5.7 g/dL (6.6-8.7)
[2020-10-18] MEDS: HYDROcodone-acetaminophen 5-325 mg Tablet PO ×5 (03:25→21:22)
[2020-10-18 03:56] LABS: Basophils # 0.1 10^3/uL (0.0-0.1); Basophils % 0.5 %; Eosinophils % 0.3 %; Hematocrit 38.2 % (42.0-52.0); Hemoglobin 12.4 g/dL (11.7-16.6); Lymphocytes # 2.4 10^3/uL (0.8-4.8); Lymphocytes % 23.4 %; Mean Corpuscular HGB Conc 32.5 g/dL (30.0-36.0); Mean Corpuscular Hemoglobin 29.2 pg (28.0-34.0); Mean Corpuscular Volume 90.1 fL (80-94); Mean Platelet Volume 10.3 fL (7.4-10.4); Monocytes # 0.9 10^3/uL (0.2-0.9); Monocytes % 8.3 %; Neutrophils # 6.95 10^3/uL (1.8-7.7); Neutrophils % 67.2 %; Nucleated Red Blood Cells % 0 %; Platelet Count 292 10^3/cmm (130-400); Red Blood Count 4.24 10^6/uL (4.1-5.3); Red Cell Distribution Width 12.6 % (12.1-15.1); White Blood Count 10.3 10^3/uL (4.0-10.0)
[2020-10-18] MEDS: lactated ringers 1,000 ML 90 ML IV ×2 (04:15→13:48)
[2020-10-18] MEDS: ketorolac 30 mg/mL INJ IVP ×2 (04:25→13:50)
[2020-10-18] MEDS: enoxaparin 40 mg/0.4 mL Syringe SUBCUT (06:49)
[2020-10-18 06:56] LABS: Glucose Point of Care 369 mg/dL (70-110)
[2020-10-18] MEDS: cetirizine 10 mg Tablet PO (08:05)
[2020-10-18] MEDS: docusate sodium 100 mg Capsule PO ×2 (08:05→17:06)
--- NOTE | 2020-10-18 08:06 | PM.PN ---
Subjective Subjective: Interval history: having increased right calf pain on lateral side Vitals/I&O/Wt Last Vital Signs Temp 98.2 F 10/18/20 07:37 Pulse 71 10/18/20 07:37 Resp 17 10/18/20 07:37 BP 94/61 10/18/20 07:37 Pulse Ox 94 10/18/20 07:37 10/17/20 10/18/20 10/18/20 22:59 06:59 14:59 Intake Total 580 / 640 1060 / 1700 Output Total 100 / 100 560 / 660 Balance 480 / 540 500 / 1040 Physical Exam Narrative: EXAM NARRATIVE: 5/ stregth in BLE sensation intact Urinary Catheter Management^: F: Cath Placed During This Visit: yes Urinary Catheter Date of Insertion: 10/17/20 Urinary Catheter Time of Insertion: 10:30 Data : 10/18/20 02:09 10/18/20 02:09 A&P Additional A&P Information POD #1 L4- S1 PSF and L3/4 decompression Plan: try some IV Decadron (monitor BS) US Right Calf D/C drain Attestations Medical Necessity Statement*: Pt will need pain control and PT Coding Level of Care Code 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
--- NOTE | 2020-10-18 08:10 | PC.NURSE ---
Patient awake alert and oriented, sitting up in bed for breakfast, radiology in to complete venous duplex. Call light in reach, side rails up X2.
--- NOTE | 2020-10-18 09:00 | USCV_ITS ---
Papito Flores Age: 55 Gender: M : 1965 Exam Date: 10/18/2020 08:10 Ordering Phys: Iveth Carrillo MD Technologist: Alta Villasenor Exam Location: [facility] [place] Indication: DVT HISTORY: Lower extremity swelling. PROCEDURES: Venous duplex imaging was performed in only the right lower extremity. The following venous structures were evaluated: common femoral vein, profunda vein, proximal portion of the greater saphenous vein, superficial femoral vein, and the popliteal vein. In addition, the posterior tibial and peroneal trunk were evaluated. Serial compression, augmentation maneuvers, and spectral Doppler flow evaluation were performed. FINDINGS: No DVT seen in any vessel examined The veins were found to be easily compressible with spontaneous blood flow. Non pulsatile flow pattern. CONCLUSIONS No evidence of DVT in the above-mentioned identifiable veins. Dr João Kunz MD [facility] (Electronically Signed) Final Date: 19 October 2020 19:20 S
[2020-10-18] MEDS: dexamethasone 10 mg/mL INJ IVP ×3 (09:01→22:08)
--- NOTE | 2020-10-18 09:30 | PC.NURSE ---
Hemovac removed per Dr. Ordaz's orders,intact upon removal, placed 4X4's with tape, patient tolerated well. Sitting up in chair with abdominal binder in place, call light in reach.
--- NOTE | 2020-10-18 10:04 | PM.PN ---
Subjective Subjective: Interval history: No acute events overnight. Moved to the floors when the room is available. Complaining of pain in right calf and popliteal area. Started on Decadron by surgical team. Denies any nausea, vomiting, headache. Has remained afebrile, hemodynamic stable saturating 96% on room air. Labs noted. Will appropriate physical therapy. Vitals/I&O/Wt Last Vital Signs Temp 98.2 F 10/18/20 07:37 Pulse 71 10/18/20 07:37 Resp 17 10/18/20 07:37 BP 94/61 10/18/20 07:37 Pulse Ox 94 10/18/20 07:37 10/17/20 10/18/20 10/18/20 22:59 06:59 14:59 Intake Total 1080 / 1140 1060 / 2200 60 / 60 Output Total 100 / 100 560 / 660 Balance 980 / 1040 500 / 1540 60 / 60 Physical Exam Narrative: EXAM NARRATIVE: EXAM NARRATIVE: General: In acute distress because of pain in the right leg, AOx3. HEENT: PERRLA, pupils bilaterally equal and reactive Chest: Normal vesicular breath sounds bilaterally, good air entry bilaterally no added sounds. CVS: S1-S2 regular, no murmurs, no tachycardia, no gallops, no rubs Abdomen: Soft, nontender, no organomegaly, bowel sounds present, Neuro: No focal deficits, no facial deformity, AO x3, moving both upper limbs without any problem, wiggling toes of both feet without any problem Urinary Catheter Management^: F: Cath Placed During This Visit: yes Urinary Catheter Date of Insertion: 10/17/20 Urinary Catheter Time of Insertion: 10:30 Data : 10/18/20 02:09 10/18/20 02:09 A&P Assessment and plan (1) Type 2 diabetes mellitus: Status: Acute Qualifiers: Diabetes mellitus complication status: without complication Diabetes mellitus jail insulin use: without jail use Qualified Code(s): E11.9 - Type 2 diabetes mellitus without complications (2) Lumbar stenosis with neurogenic claudication: Status: Acute (3) COVID-19: Status: Acute Additional A&P Information Type 2 diabetes mellitus: Recent HBA1c- 9.3 Continue sliding scale but at moderate doses now patient is on Decadron from surgical team. For now hold oral hypoglycemics. Most likely on discharge patient needs a combination of Metformin and sitagliptin. When ready to eat from surgical point of view start patient on carb consistent diet. Recent COVID-19: Patient's COVID-19 PCR positive on October 03, 2020 As patient has finished 14-day course of quarantine with 14 today today and remains asymptomatic does not need isolation precautions. Currently patient does not have any symptoms and is saturating more than 96% on room air. Chest x-ray, labs stable. Lumbar stenosis: Postoperative day 1. Anticoagulation, diet, pain medication, ambulation, physical therapy, bowel regimen, perioperative antibiotics as per the surgical team. Monitor vitals, bilateral total capillary refill, neurochecks. Monitor blood pressures. Goal blood pressure less than 140/90 mmHg. We will change medications as per the blood work and clinical course. Thank you for involving me in care of Mr. Flores. Please feel free to call me with any questions. Attestations Medical Necessity Statement*: As per primary team. Time Spent in Patient Care: Greater than 35 minutes (>than 50% of time spent in counselling and/or direct pt care on unit). 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
--- NOTE | 2020-10-18 10:36 | PC.CHAP ---
Pastoral Care Encounter/Spiritual Assessment Type of Contact [] Declined entry processor visit [] Patient/Family/Request visit [] Outpatient visit [] Follow-up visit [] Physician referral [] Code/Alert [x] Routine visit [] Staff referral [] Actively dying [] Patient sleeping [] Family support [] [] Out of room [] Palliative care [] [x] Receiving care in room [] Pre-surgical visit [] Trauma [] Long length of stay [] ICU visit [] Other: Relational/Emotional Strength [x] Patient feels connected with others/family/visitors/staff [] Distress [] Loneliness/isolation [] Abandonment Spirituality of Patient [x] Person of Aida [] Attends Tenriism of their Aida [x] Believes in Prayer [] Reads Bible or Faith materials [] There are Spiritual issues to be addressed Clerical Methods Analyst Interventions [x] Prayer [x] Active listening [x] Non-anxious presence [x] Spiritual/emotional support [] Crisis/trauma care [x] Spiritual counseling [] Bereavement support [] Provided bereavement packet [] Provided Bible/devotional materials [] Provided toy/stuffed animal, coloring book to patient or family member [] Provided Communion [] Anointing/[place] [] Salvation [x] Completed spiritual assessment [] Other: Impact on Illness or Injury [] Angry [x] Fearful [] Anxious [] Often cries [] Exhaustion [] Unable to work [] Unable to attend sikh [] Unable to walk/stand [] Unable to read [] Unable to drive [] Unable to eat/drink [] Unable to sleep [] Unable to be with family [] Patient intubated [] Other: Summary Lumbar Stenosis vedabery line`d up and feels good, has a good attitude, looking to go home Time spent with patient 10 mins
[2020-10-18 10:44] LABS: Glucose Point of Care 208 mg/dL (70-110)
[2020-10-18 16:54] LABS: Glucose Point of Care 346 mg/dL (70-110)
[2020-10-18 20:48] LABS: Glucose Point of Care 339 mg/dL (70-110)
[2020-10-19] VITALS: BP 114/67; PULSE 73; RESP 16; TEMP 36.6; O2SAT 92
[2020-10-19] MEDS: lactated ringers 1,000 ML 90 ML IV (00:21)
[2020-10-19 04:00] VITALS: BP 120/71; PULSE 74; RESP 16; TEMP 36.7; O2SAT 94
[2020-10-19] MEDS: dexamethasone 10 mg/mL INJ IVP (04:45)
[2020-10-19] MEDS: enoxaparin 40 mg/0.4 mL Syringe SUBCUT (05:07)
[2020-10-19] MEDS: HYDROcodone-acetaminophen 5-325 mg Tablet PO ×2 (05:07→14:04)
[2020-10-19 06:39] LABS: Glucose Point of Care 286 mg/dL (70-110)
[2020-10-19 07:35] VITALS: BP 114/70; PULSE 70; RESP 18; TEMP 36.5; O2SAT 92
--- NOTE | 2020-10-19 08:13 | PM.DCS ---
Discharge Providers Date of Admission: 10/17/20 14:10 Date of Discharge: October 19, 2020 Attending Provider at Admission: Jam Ordaz DO Attending Provider at Discharge: Jam Ordaz DO Primary Care Provider: Angelica Keita MD Diagnoses at Discharge Discharge Diagnosis (1) Type 2 diabetes mellitus: Status: Acute Qualifiers: Diabetes mellitus residential insulin use: without terminal operator use Diabetes mellitus complication status: without complication Qualified Code(s): E11.9 - Type 2 diabetes mellitus without complications (2) Lumbar stenosis with neurogenic claudication: Status: Acute (3) COVID-19: Status: Acute Reason for Visit Reason for Visit: Lumbar stenosis with neurogenic claudication Hospital Course Hospital Course Patient was admitted after having a revision L4-S1 fusion. He had L4-5 posterior lumbar interbody fusion. Revision of his L5-S1 decompression and laminectomy. And a laminectomy of L3-4 level. Postoperatively patient did well his symptoms in his anterior thighs and left leg are completely resolved. At this point he is complaining of some soreness in his back from surgery. But he did have increased pain along the right aspect of his lateral leg. He has numbness. He had this prior to surgery however the symptoms are worse at this point. This was on postop day #1 postop day #2 today patient symptoms have improved but are still present. Patient's pain is controlled and he will be discharged home he already has a walker at home and he will follow-up in the clinic in 2 weeks. Physical Exam Narrative: EXAM NARRATIVE: Patient has 5 out of 5 strength in bilateral lower extremities. Patient has numbness over the lateral aspect of his foot. Incision is dressing is clean dry and intact. Urinary Catheter Management^: F: Cath Placed During This Visit: yes Urinary Catheter Date of Insertion: 10/17/20 Urinary Catheter Time of Insertion: 10:30 Discharge Data Data Completed and Pending: Completed Studies During Hospitalization Category Date Time Status XR chest 1V francy ble [id number] Routine Exams 10/17/20 17:57 Completed XR lumbar spine 2 -3V* [id number] Routine Exams 10/17/20 Completed Pending at discharge Category [place] [id number] Routin e Ultrasound 10/18/20 09:00 Taken Labs from last 24 hours 10/19/20 10/18/20 10/18/20 06:35 20:45 16:48 POC Glucose 286 339 346 10/18/20 10:37 POC Glucose 208 Vitals: Last Vital Signs Temp 97.7 F 10/19/20 07:35 Pulse 70 10/19/20 07:35 Resp 18 10/19/20 07:35 BP 114/70 10/19/20 07:35 Pulse Ox 92 10/19/20 07:35 Discharge Plan Discharge Patient Disposition: Home Condition: Stable Prescriptions: New DOK 100 mg Capsule 100 mg PO BID PRN (Reason: constipation) 7 Days Qty: 30 RF: 0 hydrocodone-acetaminophen 5-325 mg Tablet 1 - 2 tab PO Q4H PRN (Reason: Moderate To Severe Pain) Qty: 40 RF: 0 Continued tramadol 50 mg tablet 50 mg PO TID PRN (Reason: pain) 30 Days Qty: 90 RF: 0 acetaminophen [Tylenol] 325 mg capsule 650 mg PO Q6H PRN (Reason: Pain) RF: 0 All Day Allergy (cetirizine) 10 mg capsule 10 mg PO DAILY RF: 0 metformin 1,000 mg tablet 1,000 mg PO BID 30 Days Qty: 60 RF: 2 Discontinued ibuprofen 200 mg tablet 600 mg PO Q6H PRN (Reason: Pain) RF: 0 Discharge Orders: Discharge Order (Routine); Ordered 10/19/20 Ordered By: Jam Ordaz Discharge Diet: Advance as tolerated Discharge Activity: Limit activity as instructed Activity Restrictions/Additional Instructions: Thank you for [facility] for your care! The following is a list of instructions, from your provider, to follow upon your discharge to ensure you have the optimal recovery from your recent injury or surgery. Follow-up care is a skinner part of your treatment and safety. Be sure to make and go to all appointments, and call your doctor if you are having problems. If you do not already have a follow-up appointment made, call Dr. Ordaz office in the next 1-3 days to make follow up appointment for 2 weeks at [phone]. It is also a good idea to know your test results and keep a list of the medicines you take. Medications will be prescribed for you at your provider's discretion. These medications are to be used as instructed; if they are taken more often that prescribed they will not be refilled early and in most cases will not be refilled at all. > When a refill is needed,you should contact carol azul 2-3 business days before your prescription runs out. Medications will NOT be refilled by manager environmental health and safety providers after hours! > Many pain medications contain Tylenol (Acetaminophen). Do not consume more than 4,000 mg of Tylenol per day in total with any combination ofmedications. > Pain medications can cause constipation. Please use an over the counter stool softener as directed, while taking pain medications. Consulty our local pharmacist with questions or recommendations on stool softeners. If constipation persists, contact our office or your primary care provider. > While under our care,you are not to receive pain medications or other controlled substances from any other provider unless our office is notified and approves. Any attempts to do so will result in refusal to prescribe any further pain medications and possible dismissal from our practice. ? Your wound and/or dressing should remain clean and dry for 2 days after surgery. On postoperative day 2 (48 hours after your surgery) the dressing (if present) should be removed and it is okay to shower and get the incision wet. Pad dry afterwards. No further dressing should be required from that point on. Do not put any creams or ointments on the incision > It is normal for there to be a small amount of discharge (bloody or blood tinged) present from a surgical wound for the first 1-3days. > The wound should be examined twice a day for signs of infection. Mild redness or bruising is to be expected but indications that an infection maybe starting would include; An increase in redness, swelling, or discharge, a foul odor present around the incision, and/or a fever greater than 101 ?F ? Showering is permitted, however we ask that you do not take a bath, sit in a whirlpool / Jacuzzi, or go swimming for 1 month. For only the first 2 days after surgery, lt wilt be necessary for you to cover your wound/dressing with plastic and tape to keep it dry. ? Walking is essential for the healing process after surgery. We would like you to slowly advance your walking. This should be done on relatively flat clear ground (inside or out) or can be done on a treadmill. Remember this goal does not have to happen all at once, slowly increase your distance and duration. This can be broken into more more than one walk per day as tolerated. Patients who walk as directed after surgery rarely require Physical Therapy. In the unlikely event this issue arises your provider will direct hospital staff to make the appropriate arrangements. ? No lifting over 5 pounds {a gallon of milk) or bending/twisting until further notice. Each of these activities places an unnecessary amount of stress onto the body and can impede the delicate healing process. > Instead of bending at the waist, keep your back straight and bend at the knees. > Instead of twisting your torso, keep your back straight and turn your entire body with your feet. ? You may sleep in any position which makes you comfortable. Many patients find comfort sleeping in a reclining chair. It is not abnormal to have difficulty sleeping for the first several weeks following your surgery. We recommend trying Benadry! or Tylenol PM as directed to help with your sleeping difficulties. Both medications are over the counter and available without prescription. ? NO SMOKING!!! Smoking dramatically increases the probability of developing postoperative wound infections. ? Common complaints after lumbar and/or thoracic spine surgery include, but are not limited to: numbness and/or tingling in the legs, pain around the incision and surrounding tissues, muscle spasms, or stiffness of the middle to low back. Contact our office if these symptoms persist or if an acute change occurs. ? No driving for the first 3-5days, and not while taking narcotics or until seen at your follow-up appointment and cleared. There are no restrictions for riding on short trips, however if you take a longer trip, arrangements should be made to make regular stops to get out of the vehicle and stretch . ? Swelling is an unfortunate event that will take place with any surgery and is the primary source of your postoperative discomfort. While walking and regular approved activities helps control inflammation, there are additional steps you can take to minimize swelling. > Place ice over the surgical site and surrounding tissue for twenty minutes, followed by applying a low/medium heat (heating pad) for an additional twenty minutes every 1-2 hours as needed for painrelief. > You may use of over the counter anti-inflammatory medications (Ibuprofen, Motrin, Aleve, Advil, etc) as directed on the package label. These types of medicines wm significantly reduce the amount of discomfort you experience after surgery from swelling. It should be noted that if you have and allergy to any of these medications, or a history of ulcers or kidney disease you should consult you primary care provider prior to starting these medications. Discharge Attestations Time Spent in Discharge Care*: greater than 30 min Specific Discharge Activities: documenting/other paperwork and evaluating patient/reviewing data Quality Metrics Clinical Quality Measures During this hospital stay, did patient experience: None Coding Level of Care Code Acute Steam Room Attendant for g Fwd Diagnoses Type 2 diabetes mellitus E11.9 Diabetes mellitus residential insulin use: without residential use Diabetes mellitus complication status: without complication Lumbar stenosis with neurogenic claudication M48.062 COVID-19 U07.1
--- NOTE | 2020-10-19 09:53 | PM.PN ---
Subjective Subjective: Interval history: No acute events overnight. On examination patient seen walking in the [place] without any difficulty or without being unsteady on his feet. States he is feeling a lot better. Denies any nausea, vomiting, headache. Vitals has remained stable in last 24 hours. Plan from surgical site is to possibly discharge later in the day today. Vitals/I&O/Wt Last Vital Signs Temp 97.7 F 10/19/20 07:35 Pulse 70 10/19/20 07:35 Resp 18 10/19/20 07:35 BP 114/70 10/19/20 07:35 Pulse Ox 92 10/19/20 07:35 10/18/20 10/19/20 10/19/20 22:59 06:59 14:59 Intake Total 480 / 1536 1669.5 / 3205.5 660 / 660 Output Total 1325 / 2975 2050 / 5025 Balance -845 / -1439 -380.5 / -1819.5 660 / 660 Physical Exam Narrative: EXAM NARRATIVE: EXAM NARRATIVE: General: In acute distress because of pain in the right leg, AOx3. HEENT: PERRLA, pupils bilaterally equal and reactive Chest: Normal vesicular breath sounds bilaterally, good air entry bilaterally no added sounds. CVS: S1-S2 regular, no murmurs, no tachycardia, no gallops, no rubs Abdomen: Soft, nontender, no organomegaly, bowel sounds present, Neuro: No focal deficits, no facial deformity, AO x3, moving both upper limbs without any problem, wiggling toes of both feet without any problem Urinary Catheter Management^: F: Cath Placed During This Visit: yes Urinary Catheter Date of Insertion: 10/17/20 Urinary Catheter Time of Insertion: 10:30 Data : 10/18/20 02:09 10/18/20 02:09 A&P Assessment and plan (1) Type 2 diabetes mellitus: Status: Acute Qualifiers: Diabetes mellitus complication status: without complication Diabetes mellitus jail insulin use: without jail use Qualified Code(s): E11.9 - Type 2 diabetes mellitus without complications (2) Lumbar stenosis with neurogenic claudication: Status: Acute (3) COVID-19: Status: Acute Additional A&P Information Type 2 diabetes mellitus: Recent HBA1c- 9.3 Patient's blood sugars have been stable. If getting discharged today can continue with home dose of Metformin but will add sitagliptin 100 mg daily with advised to check blood sugars regularly at home and maintain blood sugar diary and follow-up with his primary care provider within next 1 month and to repeat HbA1c in 3 months. Above treatment plan has been discussed in detail with the patient and he is agreeable to the same and verbalizes understanding. Recent COVID-19: Patient's COVID-19 PCR positive on October 03, 2020 As patient has finished 14-day course of quarantine with 14 today today and remains asymptomatic does not need isolation precautions. Currently patient does not have any symptoms and is saturating more than 96% on room air. Chest x-ray, labs stable. Lumbar stenosis: Treatment as per surgical team. Patient is stable for from medicine point of view to be discharged. Attestations Medical Necessity Statement*: As per primary team Time Spent in Patient Care: Greater than 35 minutes (>than 50% of time spent in counselling and/or direct pt care on unit). Coding Level of Care Code Acute Analytical Consultant for [facility] Fwd Diagnoses Type 2 diabetes mellitus E11.9 Diabetes mellitus complication status: without complication Diabetes mellitus ocean transportation intermediary insulin use: without ocean transportation intermediary use Lumbar stenosis with neurogenic claudication M48.062 COVID-19 U07.1
[2020-10-19] MEDS: TRAMadol 50 mg Tablet PO (10:30)
[2020-10-19] MEDS: docusate sodium 100 mg Capsule PO (10:30)
[2020-10-19] MEDS: cetirizine 10 mg Tablet PO (10:31)
[2020-10-19 11:21] LABS: Glucose Point of Care 361 mg/dL (70-110)
[2020-10-19 11:44] VITALS: BP 122/72; PULSE 70; RESP 18; TEMP 36.7; O2SAT 96
[2020-10-19 16:08] VITALS: BP 122/72; PULSE 70; RESP 18; TEMP 36.7; O2SAT 96
--- NOTE | 2020-10-22 16:05 | PC.SOCIAL ---
Called patient post discharge. He indicates he is not having any symptoms related to COVID. He indicates only concern currently is he feels like is right leg is experiencing some significant nerve pain. Pain is worse in this area than it was prior to Surgery. He indicates it is sharp shooting pain that starts upper right leg and goes down to right foot. He indicates it continues to worsen and movement seems to exacerbate the pain. He is not having any back pain. Dr Ordaz was in surgery earlier when he called his office and he is awaiting a call back. Currently appt is scheduled for 10/29/[address] Ordaz but this nurse agrees with patient he will more than likely need to be seen early this week to address concern. He agrees to explain to Dr Ordaz or his nurse the symptoms relayed to this nurse. We did discuss COVID precautions in general such as good handwashing for 20 seconds at a time with soap and warm water, wearing masks when out in public, maintain 6 ft social distancing. He verbalized understanding. Patient indicates he has no need to see Dr Keita currently and will see her as scheduled for his 3 month check up.
--- NOTE | 2020-10-23 10:30 | P.HP_ITS ---
Providers/Chief Complaint Admitting Physician: Jam Ordaz DO Primary Care Provider: Angelica Keita MD Chief Complaint: Lumbar stenosis with neurogenic claudication History of Present Illness Papito Flores is a 55 year old male 55 year old male patient here for lumbar pain increase in headache, patients states he is supporting himself with his arms more when sitting and he noticed an increase in headaches. Pt states he has had prior back surgeries. States Dr. Vilchis did injections in his back that did not provide relief. Onset: years Duration: years Characteristics: sharp Severity: 05/18 Location: lumbar Radiating symptoms: bilat extrem to Aggravating factors: sitting for long periods, stand up strainght Alleviating factors: movement, ice, leaning foreward Neuro deficits: denies numbness, tingling, weakness, incontinence of bowel/bladder, saddle anesthesia. Prior tx: injections- no relief, physical Review of Systems Narrative: General ROS: negative for weight changes, fever ENT ROS: negative for nasal congestion, drainage or bleeding, sore throat, dysphagia or ear pain Eyes: PERRL Hematological and Lymphatic ROS: negative for swollen glands or abnormal bleeding Endocrine ROS: negative for polyuria/polydpsia or new changes in weight Respiratory ROS: negative for cough, shortness of breath, or wheezing Cardiovascular ROS: negative for chest pain or dyspnea on exertion Gastrointestinal ROS: negative for reflux, abdominal pain, change in bowel habits, or black or bloody stools Musculoskeletal ROS: negative for back pain, neck pain, or joint pain or swelling except for current problem Neurological ROS: negative for TIA or stoke symptoms Skin: no rashes Medications/Allergies Home Medications Medication Instructions Recorded Confirmed Last Taken Type acetaminophen 325 mg capsule 650 mg PO Q6H PRN 12/07/19 10/18/20 10/16/20 History cetirizine 10 mg capsule 10 mg PO DAILY 03/15/20 10/18/20 10/16/20 History tramadol 50 mg tablet 50 mg PO TID PRN 30 Days #90 tab 08/24/20 10/17/20 10/13/20 Rx metformin 1,000 mg tablet 1,000 mg PO BID 30 Days #60 tab 09/27/20 10/17/20 10/16/20 Rx docusate sodium [DOK] 100 mg PO BID PRN 7 Days #30 cap 10/19/20 Unknown Rx hydrocodone-acetaminophen 1 - 2 tab PO Q4H PRN #40 tab 10/19/20 Unknown Rx sitagliptin [Januvia] 100 mg PO DAILY #30 tab 10/19/20 Unknown Rx Allergies Allergy/AdvReac Type Severity Reaction Status Date / Time morphine Allergy Severe muscle Verified 10/08/20 08:15 tremors, convulsions PFSH Acute PFSH: Medical History (Updated 10/20/20 @ 00:00 by ) Back pain Cervical disc disorder with myelopathy of mid-cervical region COVID-19 Facet arthritis, degenerative, lumbar spine Headache due to injury of head and neck Intervertebral disc disorder of cervical region with myelopathy Intervertebral disc disorder with radiculopathy of lumbar region Intervertebral disc disorder with radiculopathy of lumbosacral region Lumbar stenosis with neurogenic claudication Spinal stenosis of lumbar region with radiculopathy Type 2 diabetes mellitus Surgical History H/O hernia repair History of lumbar fusion Previous back surgery 11/1991 L5-S1 decompression. 03/1992 L5-S1 decompression, reexploration. 1998 L5-S1 anterior/posterior fusion fixation Family History Mother Cancer lung cancer Brother Diabetes Social History Smoking and tobacco status: never smoked Alcohol intake: never Lives independently: Yes Household members: spouse Housing: House Marital status: service: No Current occupational status: disabled History of recent travel: No Vitals/I&O/Wt Last Vital Signs Temp 98.0 F 10/19/20 16:08 Pulse 70 10/19/20 16:08 Resp 18 10/19/20 16:08 BP 122/72 10/19/20 16:08 Pulse Ox 96 10/19/20 16:08 Physical Exam Narrative: EXAM NARRATIVE: CONSTITUTIONAL: The patient is a normal appearing [] in no apparent distress. GENERAL: Patient in no acute distress. CARDIAC: Regular rate and rhythm. CHEST: Normal inspiratory effort, normal respiratory rate. ABDOMEN: Soft and nontender. SKIN: Clear, warm and intact. NEURO?PSYCH: The patient is alert and oriented to person, place and time. Sensorv /SILT Motor StrengthShoulder abduction C5 5/5Wrist extension C6 5/5Elbow extension C7 5/5Hand Senior Pastor C8 5/5Finger abduction T15/5 Radial/ Ulnar/ Median n intact LowerSensory (SILT)Motor StrengthHin flexion L2/3Ant/inner thigh 5/5Hip adduction L2/3 5/5Knee extension L4 Lat thigh, 5/5Toe dorsiflexion L5 5/5Ankle dorsiflexion L5/ [id number] flexion S1 5/5 DTRBleeps 2+Triceps 2+Brachioradialis 2+Patellar 2+Achilles 2+ MUSCULOSKELETAL: [] UPPEREXTREMITIES: The patient had full active ROM in fingers, wrist, elbow, and shoulder. The patient demonstrated ability to fully flex/extend/abduct/adduct fingers, make ok sign, cross 2nd/3rd digits, extend 1st digit fully.. Radial pulse 2+, CR<2 seconds. LOWER EXTREMITIES: Pt has full, active ROM of toes, ankle, knee, and hip. Dorsalis pedis/posterior tibialis pulses 2+, CR<2 seconds. SPINE: Skin warm, dry, intact. Urinary Catheter Management^: F: Cath Placed During This Visit: yes Urinary Catheter Date of Insertion: 10/17/20 Urinary Catheter Time of Insertion: 10:30 Data : 10/18/20 02:09 10/18/20 02:09 A&P Additional A&P Information Patient has lumbar stenosis. With previous fusion. Plan is to do a decompression fusion. Of his lumbar spine. Attestations Medical Necessity Statement*: failed conservative therapy Coding Level of Care Code Acute Green Hide Inspector for [facility] Sen
== END 2020-10-19 14:50 | disposition home or self-care (01) | DRG 460 ==
LOC: ICU 14:10 → MEDSURG 10-18 02:14
PROVIDERS: Internal Medicine; Student in an Organized Health Care Education/Training Program; Admitting Provider Orthopaedic Surgery; PCP Family Medicine; Visit Provider Orthopaedic Surgery
PROC: 0SG00AJ Fusion of Lumbar Vertebral Joint with Interbody Fusion Device, Posterior Approach, Anterior Column, Open Approach (ICD-10-PCS; principal; 2020-10-17 10:10)
DX: M48.062 Spinal stenosis, lumbar region with neurogenic claudication (principal); M50.020 Cervical disc disorder with myelopathy, mid-cervical region, unspecified level; Z86.19 Personal history of other infectious and parasitic diseases; E11.9 Type 2 diabetes mellitus without complications; Z79.84 Long term (current) use of oral hypoglycemic drugs; G89.29 Other chronic pain; M79.89 Other specified soft tissue disorders; M79.661 Pain in right lower leg
CPT/HCPCS: 12345; 36415; 36416; 71045; 72100; 76000; 80053; 82962; 83540; 83550; 84443; 85025; 85378; 93971; 96372; 96375; 97161; C1713; C9359; J0330; J0690; J1100; J1644; J1650; J1815; J1885; J2370; J2405; J2704; J3010; J3490; J7030; J7040

== ENCOUNTER → 2020-10-23 11:06 | Outpatient (BNVA) | payer MEDICARE, SELFPAY | PROVIDERS: PCP Family Medicine; Visit Provider Orthopaedic Surgery | DX: R52 Pain, unspecified (principal); Z98.1 Arthrodesis status; K80.20 Calculus of gallbladder without cholecystitis without obstruction | CPT/HCPCS: 72100 ==

== ENCOUNTER 2020-10-23 11:37 | Inpatient (IN) | payer MEDICARE, SELFPAY ==
[2020-10-23] VITALS (12 sets, daily range): BP systolic 108–127; BP diastolic 69–79; PULSE 65–84; RESP 16–18; TEMP 36.1–36.9; O2SAT 91–98; BMI 32.5
--- NOTE | 2020-10-23 11:39 | CT_ITS ---
WS: [id number] CT THORACIC SPINE TECHNIQUE: Noncontrast CT of the thoracic spine with coronal and sagittal reformatted images. CLINICAL INFORMATION: pain COMPARISON: November 23, 2019 DLP: 2642.[address] scans at [facility] use at least one of these dose optimization techniques: automat ed exposure control; mA and/or kV adjustment per patient size (includes targeted exams where dose is matched to clinical indication); or iterative reconstruction. FINDINGS: Mild thoracic curve. A few Schmorl's nodes in the mid thoracic spine. Mild thoracic kyphosis. Mild sp ondylitic changes thoracic spine. No acute appearing compression fractures. No high-grade central can al stenosis. Disc space heights and vertebral body heights relatively well-preserved. Normal paravert ebral soft tissues. Atelectasis in the lung bases. Calcified granuloma left lower lobe. Adrenal Glands are normal. CT/CT thoracic spin wo con* [id number] IMPRESSION: No acute thoracic spine findings
--- NOTE | 2020-10-23 11:39 | CT_ITS ---
WS: [id number] CT LUMBAR SPINE TECHNIQUE: Noncontrast CT of the lumbar spine with coronal and sagittal reformatted images. CLINICAL INFORMATION: back pain COMPARISON: July 03, 2020 DLP: 2335.[address] scans at [facility] use at least one of these dose optimization techniques: automat ed exposure control; mA and/or kV adjustment per patient size (includes targeted exams where dose is matched to clinical indication); or iterative reconstruction. FINDINGS: Recent postoperative changes pedicle screw fixation L4-S1 with interconnecting rods. Interbody fusion grafts L4-L5 and L5-S1. Anterior screw fixation L5-S1. Hardware appears in good position. Laminectom y defects L4-L5 and L5-S1. Expected postoperative changes in the dorsal subcutaneous soft tissues. Be am hardening artifact limits evaluation of the spinal canal. Spinal canal appears patent. Expected po stoperative air and fluid in the laminectomy defects. Small amount of fluid along the incision site. No retroperitoneal fluid collections. CT/CT lumbar spine wo con* [id number] IMPRESSION: 1. Recent expected postoperative changes pedicle screw fixation L4-S1 with int erconnecting rods. Interbody fusion L4-L5 and L5-S1. Hardware appears in good p osition. 2. Beam Bowman artifact limits examination but spinal canal appears patent. 3. Laminectomies in the lower lumbar spine with expected postoperative air and fluid in the laminectomy defects. Small amount of fluid along the incision sit e. 4. No other significant findings.
--- NOTE | 2020-10-23 11:53 | ED_ITS ---
HPI - Back Pain/Injury General: Chief Complaint: Back Pain/Injury Stated Complaint: Back Pain Time Seen by Provider: 10/23/20 11:49 Source: patient Mode of arrival: ambulatory Limitations: no limitations History of Present Illness: HPI Narrative: 55-year-old who had lower lumbar back pain last week. He states that he has had pain since then but it has been increasing and is severe today. States it radiates down his right leg and anytime he tries to bear weight on his right leg he has severe pain in his lower back. Denies any bowel or bladder incontinence. Patient was seen by Dr. Ordaz today and sent over here for CT scan of his lumbar and T-spine. MD elicited complaint: back pain Pertinent past history: prior back pain and back surgery Onset (ago): day(s) Associated symptoms: Deny abdominal pain, chills, dysuria, fever(s), nausea or vomiting Review of Systems Const: Denies: fever(s), chills, body aches or change in appetite Eyes: Denies: blurry vision or eye discomfort ENMT: Denies: throat pain or dental pain Card: Denies: chest pain Resp: Denies: dyspnea GI: Denies: abdominal pain, nausea, vomiting or diarrhea : Denies: dysuria Musc: Reports: back pain Skin/Breast: Denies: rash Neuro: Denies: headache(s) Psych: Denies: depression Eliazar/Lymph: Denies: easy bruising All/Imm: Denies: urticaria PFSH ED PFSH: Medical History Back pain Cervical disc disorder with myelopathy of mid-cervical region COVID-19 Facet arthritis, degenerative, lumbar spine Headache due to injury of head and neck Intervertebral disc disorder of cervical region with myelopathy Intervertebral disc disorder with radiculopathy of lumbar region Intervertebral disc disorder with radiculopathy of lumbosacral region Lumbar stenosis with neurogenic claudication Spinal stenosis of lumbar region with radiculopathy Type 2 diabetes mellitus Surgical History H/O hernia repair History of lumbar fusion Previous back surgery 11/1991 L5-S1 decompression. 03/1992 L5-S1 decompression, reexploration. 1998 L5-S1 anterior/posterior fusion fixation Family History Mother Cancer lung cancer Brother Diabetes Social History Smoking and tobacco status: never smoked Alcohol intake: never Lives independently: Yes Household members: spouse Housing: House Marital status: service: No Current occupational status: disabled History of recent travel: No Physical Exam Const: COMMON NORMALS: no acute distress, patient oriented x3 and healthy appearing HENMT: COMMON NORMALS: normocephalic and atraumatic HEAD & SCALP: normocephalic and atraumatic Eye: COMMON NORMALS: Equal, round and reactive pupils present and EOMs intact bilaterally PUPIL: Yes Equal, round and reactive pupils present Neck/C-Spine: COMMON NORMALS: full ROM and supple Chest: COMMONS NORMALS: normal inspection of the chest and normal palpation of entire chest wall Resp: COMMON NORMALS: normal respiratory effort, No retractions, No use of accessory muscles and clear to auscultation bilaterally AUSCULTATION: clear to auscultation bilaterally Cardio: COMMON NORMALS: regular rate, regular rhythm and No murmurs present (Cardio) RATE: regular rate RHYTHM: regular rhythm GI: COMMON NORMALS: Normal to inspection, nondistended, normoactive bowel sounds present, Soft to palpation, non-tender and no masses PALPATION: Yes Soft to palpation Back/Pelvis: OTHER: Incision to low back is clean dry and intact he has severe pain to his lower back no saddle anesthesia has pain in his right leg Extremity: COMMON NORMALS: normal to inspection and full ROM Neuro: COMMON NORMALS: patient oriented x3, moves all extremities and no focal motor deficits Psych: COMMON NORMALS: mental status grossly normal, Normal thought process present and cooperative THOUGHT PROCESS: Normal thought process present Skin: COMMON NORMALS: no rashes or lesions noted and no wounds GENERAL SKIN EXAM: no rashes or lesions noted Course Vital Signs: Vital signs: Vital Signs Temperature 97.0 F L 10/23/20 11:42 Pulse Rate 81 10/23/20 11:42 Respiratory Rate 18 10/23/20 12:55 Blood Pressure 127/79 10/23/20 11:42 Pulse Oximetry 98 10/23/20 12:55 MDM - Back Pain/Injury MDM Narrative: Medical decision making narrative: Patient presents with postop back pain. Patient was seen by Dr. Ordaz of orthopedics in the ER he is likely going to take him back to the OR tomorrow. Spoke to hospitalist and will admit at this time. Patient has been stable while in the ER. Lab Data: Labs: Lab Results 10/23/20 10/23/20 Range/Units 12:09 12:09 WBC 9.7 (4.0-10.0) 10^3/ uL RBC 4.35 (4.1-5.3) 10^6/u L Hgb 12.9 (11.7-16.6) g/dL Hct 38.7 L (42.0-52.0) % MCV 89.0 (80-94) fL MCH 29.7 (28.0-34.0) pg MCHC 33.3 (30.0-36.0) g/dL RDW 12.5 (12.1-15.1) % Plt Count 414 H (130-400) 10^3/c mm MPV 9.4 (7.4-10.4) fL Neut % (Auto) 68.5 % Lymph % (Auto) 20.8 % Early % (Auto) 6.0 % Eos % (Auto) 3.5 % Baso % (Auto) 0.5 % Neut # (Auto) 6.61 (1.8-7.7) 10^3/u L Lymph # (Auto) 2.0 (0.8-4.8) 10^3/u L Early # (Auto) 0.6 (0.2-0.9) 10^3/u L Eos # (Auto) 0.3 (0.0-0.8) 10^3/u L Baso # (Auto) 0.1 (0.0-0.1) 10^3/u L Nucleated RBC % (a uto) 0 % Nucleated RBCs # 0.0 /100WBC Sodium 134 L (136-145) mmol/L Potassium 4.4 (3.5-5.1) mmol/L Chloride 99 (98-107) mmol/L Carbon Dioxide 26 (22-29) mmol/L Anion Gap 13.4 (5-19) BUN 11 (6-20) mg/dL Creatinine 0.7 (0.7-1.2) mg/dL GFR Calculation 116.2 (90-130) mL/min Glucose 153 H (65-115) mg/dL Calculated Osmolal ity 280 L (285-295) mOsm/k g Calcium 9.4 (8.5-10.5) mg/dL Total Bilirubin 0.4 (0.15-1.2) mg/dL AST 29 (0-40) U/L ALT 36 (0-41) U/L Alkaline Phosphata se 87 (40-130) IU/L Total Protein 7.1 (6.6-8.7) g/dL Albumin 3.9 (3.5-5.2) g/dL Globulin 3.2 (1.3-4.6) g/dL Imaging Data^: ct t spine: Radiologist's impression: [address] [address] [address] Scan Report Signed Patient: Papito Flores Unit #: [id number] : [id number] Age/Sex: 55 / M ADM Date: 10/23/20 Loc: ER Room/Bed: Attending Dr: Ordering Provider/Ordering MD: Yamilet Mireles MD Date of Service: 10/23/20 Procedure(s): CT thoracic spin wo con* [id number] Accession Number(s): [id number] Report Number: [id number] WS: [id number] CT THORACIC SPINE TECHNIQUE: Noncontrast CT of the thoracic spine with coronal and sagittal reformatted images. CLINICAL INFORMATION: pain COMPARISON: November 23, 2019 DLP: 2642.[address] scans at [facility] use at least one of these dose optimization techniques: automated exposure control; mA and/or kV adjustment per patient size (includes targeted exams where dose is matched to clinical indication); or iterative reconstruction. FINDINGS: Mild thoracic curve. A few Schmorl's nodes in the mid thoracic spine. Mild thoracic kyphosis. Mild spondylitic changes thoracic spine. No acute appearing compression fractures. No high-grade central canal stenosis. Disc space heights and vertebral body heights relatively well- preserved. Normal paravertebral soft tissues. Atelectasis in the lung bases. Calcified granuloma left lower lobe. Adrenal Glands are normal. CT/CT thoracic spin wo con* [id number] IMPRESSION: No acute thoracic spine findings Discharge Plan Discharge Patient Disposition: Admitted As Inpatient Clinical Impression: Postoperative back pain Condition: Stable Coding Level of Care Code ED Enrollment Nurse for [facility] Fwd Exam Comprehensive
[2020-10-23] MEDS: ondansetron 2 mg/ML SDV 2 mL 4 MG IVP (12:17)
[2020-10-23] MEDS: HYDROmorphone 1 mg/mL INJ 1 mL IVP ×2 (12:18→12:55)
[2020-10-23 12:39] LABS: Basophils # 0.1 10^3/uL (0.0-0.1); Basophils % 0.5 %; Eosinophils # 0.3 10^3/uL (0.0-0.8); Eosinophils % 3.5 %; Hematocrit 38.7 % (42.0-52.0); Hemoglobin 12.9 g/dL (11.7-16.6); Lymphocytes % 20.8 %; Mean Corpuscular HGB Conc 33.3 g/dL (30.0-36.0); Mean Corpuscular Hemoglobin 29.7 pg (28.0-34.0); Mean Platelet Volume 9.4 fL (7.4-10.4); Monocytes # 0.6 10^3/uL (0.2-0.9); Neutrophils # 6.61 10^3/uL (1.8-7.7); Neutrophils % 68.5 %; Nucleated Red Blood Cells % 0 %; Platelet Count 414 10^3/cmm (130-400); Red Blood Count 4.35 10^6/uL (4.1-5.3); Red Cell Distribution Width 12.5 % (12.1-15.1); White Blood Count 9.7 10^3/uL (4.0-10.0)
[2020-10-23 12:49] LABS: Alanine Aminotransferase 36 U/L (0-41); Albumin Level 3.9 g/dL (3.5-5.2); Alkaline Phosphatase 87 IU/L (40-130); Anion Gap 13.4 (5-19); Aspartate Amino Transferase 29 U/L (0-40); Blood Urea Nitrogen 11 mg/dL (6-20); Calcium 9.4 mg/dL (8.5-10.5); Carbon Dioxide 26 mmol/L (22-29); Chloride 99 mmol/L (98-107); Globulin 3.2 g/dL (1.3-4.6); Glomerular Filtration Rate 116.2 mL/min (90-130); Glucose 153 mg/dL (65-115); Osmolality Calculated 280 mOsm/kg (285-295); Potassium 4.4 mmol/L (3.5-5.1); Sodium 134 mmol/L (136-145); Total Bilirubin 0.4 mg/dL (0.15-1.2); Total Protein 7.1 g/dL (6.6-8.7)
--- NOTE | 2020-10-23 13:50 | PM.HP ---
Providers/Chief Complaint Admitting Physician: Brain Smith MD Primary Care Provider: Angelica Keita MD Chief Complaint: Back Pain History of Present Illness Papito Flores is a 55 year old male presents to emergency department with worsening pain in his right lower extremity originating in the buttocks area and radiating down to his thigh and calf. Reports that he has been supporting his body with arms and developed some neck soreness. Denies frontal headache. Earlier today when pain was severe he became nauseous and had some episodes of anxiety and chest tightness. As soon as pain in his right lower extremity resolved his nausea and chest discomfort went away. Reports that left lower extremity pain that patient had prior to recent surgery is completely gone. Reports that he had some discomfort after surgery in the right lower extremity and this gradually worsened. Denies fever or chills. Reports that he did have some numbness in his right thigh prior to surgery but this is completely resolved post surgery. Reports that this is his 4th back surgery. He has been having some difficulty emptying his bladder but otherwise denies trouble initiating urination or having burning on urination. Denies any problems with bowel movement. Reports since his last surgery he had 3 normal bowel movements without evidence of melena or hematochezia. He has been diagnosed with diabetes approximately 2 years ago and recently Januvia was added to Metformin. He denies any previous history of heart disease or stroke. Patient was seen by Dr. Ordaz in emergency department and requested patient to be admitted to the hospitalist service with plan to take patient back to the OR tomorrow morning for exploration. Review of Systems Narrative: Except as mentioned in HPI. Const: Denies: fever(s) or chills Eyes: Denies: change in vision ENMT: Denies: throat pain or change in hearing Card: Reports: edema (Reports chronic left lower extremity edema off-and-on for long period of ti); Denies: lightheadedness Resp: Denies: dyspnea or productive cough GI: Reports: nausea; Denies: abdominal pain, vomiting, dysphagia, diarrhea, constipation, hematochezia or melena Musc: Denies: joint pain or joint swelling Skin/Breast: Denies: rash or erythema Neuro: Denies: headache(s) or weakness in extremities Psych: Denies: depression Endo: Denies: excessive sweating Eliazar/Lymph: Denies: easy bleeding or tender lymph nodes All/Imm: Denies: throat swelling Medications/Allergies Home Medications Medication Instructions Recorded Confirmed Last Taken Type cetirizine 10 mg capsule 10 mg PO DAILY 03/15/20 10/23/20 10/16/20 History tramadol 50 mg tablet 50 mg PO TID PRN 30 Days #90 tab 08/24/20 10/23/20 10/23/20 Rx docusate sodium [DOK] 100 mg PO BID PRN 7 Days #30 cap 10/19/20 10/23/20 10/23/20 Rx hydrocodone-acetaminophen 1 - 2 tab PO Q4H PRN #40 tab 10/19/20 10/23/20 10/23/20 Rx metformin 1,000 mg PO BID@0730,1830 10/23/20 10/23/20 10/23/20 History sitagliptin [Januvia] 100 mg PO DAILY@1200 10/23/20 10/23/20 10/22/20 History Allergies Allergy/AdvReac Type Severity Reaction Status Date / Time morphine Allergy Severe muscle Verified 10/23/20 11:19 tremors, convulsions PFSH Acute PFSH: Medical History Back pain Cervical disc disorder with myelopathy of mid-cervical region COVID-19 Facet arthritis, degenerative, lumbar spine Headache due to injury of head and neck Intervertebral disc disorder of cervical region with myelopathy Intervertebral disc disorder with radiculopathy of lumbar region Intervertebral disc disorder with radiculopathy of lumbosacral region Lumbar stenosis with neurogenic claudication Spinal stenosis of lumbar region with radiculopathy Type 2 diabetes mellitus Surgical History H/O hernia repair History of lumbar fusion Previous back surgery 11/1991 L5-S1 decompression. 03/1992 L5-S1 decompression, reexploration. 1998 L5-S1 anterior/posterior fusion fixation Family History (Updated 10/23/20 @ 13:58 by Brain Smiht MD) Mother Cancer lung cancer Brother Diabetes Father Liver cirrhosis, alcoholic Social History Smoking and tobacco status: never smoked Alcohol intake: never Lives independently: Yes Household members: spouse Housing: House Marital status: service: No Current occupational status: disabled History of recent travel: No Vitals/I&O/Wt Last Vital Signs Temp 97.0 F L 10/23/20 11:42 Pulse 74 10/23/20 13:08 Resp 18 10/23/20 13:08 BP 110/76 10/23/20 13:08 Pulse Ox 98 10/23/20 13:08 Weight last 48 hrs Weight 99.79 kg Physical Exam Const: COMMON NORMALS: patient oriented x3 and alert; apparent distress HENMT: COMMON NORMALS: normocephalic and atraumatic HEAD & SCALP: normocephalic and atraumatic OTHER: Mucous membranes are dry. Eye: COMMON NORMALS: EOMs intact bilaterally, conjunctivae normal and no scleral icterus CONJUNCTIVA: Yes conjunctivae normal Neck/C-Spine: COMMON NORMALS: no lymphadenopathy and no meningeal signs Lymph: LYMPHATIC: no lymphadenopathy noted Chest: COMMONS NORMALS: normal palpation of entire chest wall Resp: COMMON NORMALS: No use of accessory muscles and clear to auscultation bilaterally AUSCULTATION: clear to auscultation bilaterally Cardio: COMMON NORMALS: regular rate, regular rhythm and No murmurs present (Cardio) RATE: regular rate RHYTHM: regular rhythm OTHER: No lower extremity edema GI: COMMON NORMALS: Soft to palpation and non-tender PALPATION: Yes Soft to palpation RECTAL EXAM: Yes deferred : COMMON NORMALS: Yes no CVA tenderness BLADDER/KIDNEY EXAM: Yes no CVA tenderness Back/Pelvis: COMMON NORMALS: no CVA tenderness and thoracic and lumbar spine normal to inspection Extremity: COMMON NORMALS: normal to inspection and capillary refill normal Neuro: COMMON NORMALS: patient oriented x3 and no focal motor deficits (Although exam is limited due to patient's severe pain in the right lower ex) SENSORIUM/ORIENTATION: Yes alert MENINGEAL SIGNS: Yes no meningeal signs Psych: COMMON NORMALS: mental status grossly normal, Normal thought process present and cooperative THOUGHT PROCESS: Normal thought process present Skin: COMMON NORMALS: no rashes or lesions noted GENERAL SKIN EXAM: no rashes or lesions noted Data : 10/23/20 12:09 10/23/20 12:09 A&P Assessment and plan (1) Postoperative back pain: Status: Acute (2) Type 2 diabetes mellitus: Status: Acute Qualifiers: Diabetes mellitus jail insulin use: without equipment operator intermodal yard use Diabetes mellitus complication status: without complication Qualified Code(s): E11.9 - Type 2 diabetes mellitus without complications (3) Lumbar post-laminectomy syndrome: Status: Acute (4) Dehydration with hyponatremia: Status: Acute Additional A&P Information PLAN: Gentle IV hydration with normal saline. Will proceed with serial troponins and EKGs. Patient was started on steroids. Add Protonix for GI protection. Continue analgesics and antiemetics as needed Meningeal inflammation/infection felt highly unlikely. Continue with sliding scale insulin. We will avoid antibiotics at this point. Obtain UA to rule out UTI. Consider starting Flomax post surgery if blood pressure permits. Bowel regimen. Surgical procedure planned for tomorrow. Patient is asking if he can eat. We will start him on diet with n.p.o. post midnight. We will use SCDs for now and consider Lovenox tomorrow post surgery Attestations Medical Necessity Statement*: Patient with severe postop pain requiring repeat exploratory surgery requires close inpatient monitoring and treatment. I expect patient will require more than 2 midnights. Time Spent in Patient Care: Greater than 35 minutes Coding Level of Care Code Acute Long Line Teamster for [facility] Fwd Diagnoses Postoperative back pain G89.18 Type 2 diabetes mellitus E11.9 Diabetes mellitus jail insulin use: without equipment operator intermodal yard use Diabetes mellitus complication status: without complication Lumbar post-laminectomy syndrome M96.1 Dehydration with hyponatremia E86.0; E87.1
--- NOTE | 2020-10-23 14:30 | ECG_ITS ---
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 Measurements Intervals [place] Rate: 69 P: 43 ND: 160 QRS: 17 QRSD: 114 T: 40 QT: 381 QTc: 409 Interpretive Statements SINUS RHYTHM PROBABLE LATERAL MYOCARDIAL INFARCTION [35 ms Q WAVE IN I/aVL/V5/V6], OF INDETERMINATE AGE Compared to ECG 11/24/2019 04:40:49 Sinus bradycardia no longer present Myocardial infarct finding still present Electronically Signed On 10-23-2020 19:28:18 AUTOMOTIVE MECHANIC by Yesi Montemayor M.D. [id number]
--- NOTE | 2020-10-23 14:35 | P.CONIM_ITS ---
Providers/Reason For Consult Consulting Physican/Specialty*: hospitalist Reason for Consult*: right leg pain Attending Physician: Brain Smith MD Primary Care Provider: Angelica Keita MD History of Present Illness History of Present Illness Papito Flores is a 55 year old male that I did surgery on last week. He was having right lateral leg pain postoperatively it got better however now patient symptoms have gotten worse. I did a CT scan which does not show anything ob vious however one of the screws does appear that it could be close to a nerve that may be when he stands up the screw irritates the nerve. I plan on going in and reexploring maybe there is a hematoma or a piece of disc that is compressing the nerve. Review of Systems Narrative: General ROS: negative for weight changes, fever ENT ROS: negative for nasal congestion, drainage or bleeding, sore throat, dysphagia or ear pain Eyes: PERRL Hematological and Lymphatic ROS: negative for swollen glands or abnormal bleeding Endocrine ROS: negative for polyuria/polydpsia or new changes in weight Respiratory ROS: negative for cough, shortness of breath, or wheezing Cardiovascular ROS: negative for chest pain or dyspnea on exertion Gastrointestinal ROS: negative for reflux, abdominal pain, change in bowel habits, or black or bloody stools Musculoskeletal ROS: negative for back pain, neck pain, or joint pain or swelling except for current problem Neurological ROS: negative for TIA or stoke symptoms Skin: no rashes Meds/Allergies Home Medications and Allergies Home Medications Medication Instructions Recorded Confirmed Last Taken Type cetirizine 10 mg capsule 10 mg PO DAILY 03/15/20 10/23/20 10/16/20 History tramadol 50 mg tablet 50 mg PO TID PRN 30 Days #90 tab 08/24/20 10/23/20 10/23/20 Rx docusate sodium [DOK] 100 mg PO BID PRN 7 Days #30 cap 10/19/20 10/23/20 10/23/20 Rx hydrocodone-acetaminophen 1 - 2 tab PO Q4H PRN #40 tab 10/19/20 10/23/20 10/23/20 Rx metformin 1,000 mg PO BID@0730,1830 10/23/20 10/23/20 10/23/20 History sitagliptin [Januvia] 100 mg PO DAILY@1200 10/23/20 10/23/20 10/22/20 History Allergies Allergy/AdvReac Type Severity Reaction Status Date / Time morphine Allergy Severe muscle Verified 10/23/20 11:19 tremors, convulsions PFSH Acute PFSH: Medical History Back pain Cervical disc disorder with myelopathy of mid-cervical region COVID-19 Facet arthritis, degenerative, lumbar spine Headache due to injury of head and neck Intervertebral disc disorder of cervical region with myelopathy Intervertebral disc disorder with radiculopathy of lumbar region Intervertebral disc disorder with radiculopathy of lumbosacral region Lumbar stenosis with neurogenic claudication Spinal stenosis of lumbar region with radiculopathy Type 2 diabetes mellitus Surgical History H/O hernia repair History of lumbar fusion Previous back surgery 11/1991 L5-S1 decompression. 03/1992 L5-S1 decompression, reexploration. 1998 L5-S1 anterior/posterior fusion fixation Family History (Updated 10/23/20 @ 13:58 by Brain Smith MD) Mother Cancer lung cancer Brother Diabetes Father Liver cirrhosis, alcoholic Social History Smoking and tobacco status: never smoked Alcohol intake: never Lives independently: Yes Household members: spouse Housing: House Marital status: service: No Current occupational status: disabled History of recent travel: No Vitals/I&O/Wt Last Vital Signs Temp 97.0 F L 10/23/20 11:42 Pulse 84 10/23/20 13:52 Resp 18 10/23/20 13:52 BP 113/76 10/23/20 13:52 Pulse Ox 95 10/23/20 13:52 Weight last 48 hrs Weight 220 lb Physical Exam Narrative: EXAM NARRATIVE: CONSTITUTIONAL: The patient is a normal appearing [] in no apparent distress. GENERAL: Patient in no acute distress. CARDIAC: Regular rate and rhythm. CHEST: Normal inspiratory effort, normal respiratory rate. ABDOMEN: Soft and nontender. SKIN: Clear, warm and intact. NEURO?PSYCH: The patient is alert and oriented to person, place and time. Sensorv /SILT Motor StrengthShoulder abduction C5 5/5Wrist extension C6 5/5Elbow extension C7 5/5Hand Ruby On Rails Developer C8 5/5Finger abduction T15/5 Radial/ Ulnar/ Median n intact LowerSensory (SILT)Motor StrengthHin flexion L2/3Ant/inner thigh 5/5Hip adduction L2/3 5/5Knee extension L4 Lat thigh, 5/5Toe dorsiflexion L5 5/5Ankle dorsiflexion L5/ O64Qtalfba flexion S1 5/5 DTRBleeps 2+Triceps 2+Brachioradialis 2+Patellar 2+Achilles 2+ MUSCULOSKELETAL: [] UPPEREXTREMITIES: The patient had full active ROM in fingers, wrist, elbow, and shoulder. The patient demonstrated ability to fully flex/extend/abduct/adduct fingers, make ok sign, cross 2nd/3rd digits, extend 1st digit fully.. Radial pulse 2+, CR<2 seconds. LOWER EXTREMITIES: Pt has full, active ROM of toes, ankle, knee, and hip. Dorsalis pedis/posterior tibialis pulses 2+, CR<2 seconds. SPINE: Skin warm, dry, intact. A&P Additional A&P Information Status post revision L4-S1 fusion. With L3-4 decompression. Plan is to reexplore the decompression. Patient should be n.p.o. after midnight tonight. Coding Level of Care Code Acute Gas Worker for Harini Sen
[2020-10-23] MEDS: sodium chloride 0.9% 1,000 ML 75 ML IV (15:42)
[2020-10-23 15:57] LABS: Add Urine Microscopic? NO
--- NOTE | 2020-10-23 16:15 | ECG_ITS ---
[facility] Test Date: 2020-10-23 Pat Name: Papito Flores Department: Room: 252 Gender: Male Home And School Visitor: YUE MASCORROB: 1965 Requested By: Brain Smith Order Number: [id number] Flaca MD: Yesi Montemayor M.D. Measurements Intervals [place] Rate: 63 P: 43 MS: 174 QRS: 11 QRSD: 116 T: 32 QT: 385 QTc: 395 Interpretive Statements SINUS RHYTHM PROBABLE LATERAL MYOCARDIAL INFARCTION [35 ms Q WAVE IN I/aVL/V5/V6], OF INDETERMINATE AGE Compared to ECG 10/23/2020 14:42:28 No significant changes Electronically Signed On 10-23-2020 19:56:47 DIRECT MARKETING REPRESENTATIVE by Yesi Montemayor M.D. [id number]
[2020-10-23 16:30] LABS: Troponin(5th) Baseline 15 ng/L (0-15)
[2020-10-23 16:52] LABS: Urine Appearance Clear (CLEAR); Urine Color Yellow (Yellow); pH Urine 6 (5-7)
[2020-10-23 16:53] LABS: Bilirubin Urine Neg (Negative); Blood Urine Neg (Negative); Glucose Urine UA Trace (Normal); Ketones Urine Negative (Negative); Leukocyte Esterase Urine Negative (Negative); Nitrate Urine Negative (Negative); Protein Urine Neg (Negative); Urobilinogen Urine Norm (Negative)
[2020-10-23] MEDS: ketorolac 30 mg/mL INJ IVP ×2 (17:20→23:22)
[2020-10-23] MEDS: dexamethasone 4 mg/mL INJ 10 MG IVP ×2 (17:20→21:17)
[2020-10-23 17:40] LABS: Glucose Point of Care 144 mg/dL (70-110)
[2020-10-23 18:29] LABS: Troponin 5 2HR 13.73 ng/L (0-15)
[2020-10-23 18:30] LABS: Troponin 5 2HR Delta -1.27 ABS# (0-10)
[2020-10-23] MEDS: sennosides 8.6 mg Tablet 17.2 MG PO (19:31)
[2020-10-23] MEDS: TRAMadol 50 mg Tablet PO (19:31)
[2020-10-23] MEDS: cyclobenzaprine 10 mg Tablet PO (19:31)
[2020-10-23] MEDS: diazePAM 5 mg Tablet PO (21:15)
[2020-10-23 21:21] LABS: Glucose Point of Care 268 mg/dL (70-110)
[2020-10-23 21:56] LABS: Troponin 5 6HR 12.86 ng/L (0-15)
[2020-10-23 22:06] LABS: Troponin 5 6HR Delta -2.14 ng/L (0-12)
[2020-10-24] VITALS (27 sets, daily range): BP systolic 106–151; BP diastolic 64–86; PULSE 64–110; RESP 10–20; TEMP 36.3–37.1; O2SAT 91–100
[2020-10-24] MEDS: HYDROmorphone 1 mg/mL INJ 1 mL 2 MG IVP ×2 (02:11→21:27)
[2020-10-24] MEDS: sodium chloride 0.9% 1,000 ML 75 ML IV (03:06)
[2020-10-24 06:19] LABS: Glucose Point of Care 204 mg/dL (70-110)
[2020-10-24] MEDS: pantoprazole DR 40 mg Tablet PO (09:14)
[2020-10-24] MEDS: cetirizine 10 mg Tablet PO (09:14)
[2020-10-24] MEDS: dexamethasone 4 mg/mL INJ 10 MG IVP (09:14)
--- NOTE | 2020-10-24 11:34 | PM.PN ---
Subjective Subjective: Interval history: pt continue to have Right leg pain Vitals/I&O/Wt Last Vital Signs Temp 97.9 F 10/24/20 11:21 Pulse 64 10/24/20 11:21 Resp 16 10/24/20 11:21 BP 122/71 10/24/20 11:21 Pulse Ox 95 10/24/20 11:21 10/23/20 10/24/20 10/24/20 22:59 06:59 14:59 Intake Total 1080 / 1080 855 / 1935 Balance 1080 / 1080 855 / 1935 Weight last 48 hrs Weight 220 lb Data : 10/23/20 12:09 10/23/20 12:09 A&P Additional A&P Information plan to take to OR today Attestations Medical Necessity Statement*: will be going to surgery today Coding Level of Care Code Acute Department Manager for Harini Sen
--- NOTE | 2020-10-24 12:19 | PM.PN ---
Subjective Subjective: Interval history: Patient reports that when he is not moving his pain is under relatively good control with analgesics. Continues to have severe pain with movement. Denies shortness of breath or chest pain. Scheduled for surgery at 230 this afternoon. Denies headache. Vitals/I&O/Wt Last Vital Signs Temp 97.9 F 10/24/20 11:21 Pulse 64 10/24/20 11:21 Resp 16 10/24/20 11:21 BP 122/71 10/24/20 11:21 Pulse Ox 95 10/24/20 11:21 10/23/20 10/24/20 10/24/20 22:59 06:59 14:59 Intake Total 1080 / 1540 855 / 1935 Balance 1080 / 1080 855 / 1935 Weight last 48 hrs Weight 99.79 kg Physical Exam Const: COMMON NORMALS: no acute distress and patient oriented x3 Resp: COMMON NORMALS: normal respiratory effort and clear to auscultation bilaterally AUSCULTATION: clear to auscultation bilaterally Cardio: COMMON NORMALS: regular rate, regular rhythm and S2 normal heart sound present RATE: regular rate RHYTHM: regular rhythm HEART SOUNDS: S2 normal heart sound present OTHER: No lower extremity edema GI: COMMON NORMALS: Normal to inspection, nondistended, normoactive bowel sounds present, Soft to palpation and non-tender PALPATION: Yes Soft to palpation Neuro: COMMON NORMALS: patient oriented x3 and no focal motor deficits Data : 10/23/20 12:09 10/23/20 12:09 A&P Assessment and plan (1) Postoperative back pain: Status: Acute (2) Type 2 diabetes mellitus: Status: Acute Qualifiers: Diabetes mellitus skilled nursing insulin use: without skilled nursing use Diabetes mellitus complication status: without complication Qualified Code(s): E11.9 - Type 2 diabetes mellitus without complications (3) Lumbar post-laminectomy syndrome: Status: Acute (4) Dehydration with hyponatremia: Status: Acute Additional A&P Information PLAN: Continue current monitoring and treatment. Awaiting surgical procedure Attestations Medical Necessity Statement*: Patient with severe right lower extremity pain post recent surgery requires close inpatient monitoring and treatment including exploratory surgery. Coding Level of Care Code Acute Ship Harbor Pilot for Harini Sen Diagnoses Postoperative back pain G89.18 Type 2 diabetes mellitus E11.9 Diabetes mellitus skilled nursing insulin use: without terminal make up operator use Diabetes mellitus complication status: without complication Lumbar post-laminectomy syndrome M96.1 Dehydration with hyponatremia E86.0; E87.1
[2020-10-24 12:48] LABS: Glucose Point of Care 173 mg/dL (70-110)
[2020-10-24] MEDS: fentaNYL 50 mcg/mL INJ 2mL IVP (14:14)
--- NOTE | 2020-10-24 14:44 | W.PM.OPSUD ---
Surgery/Procedure H&P Update DATE OF PROCEDURE: October 24, 2020 DATE H&P PERFORMED: 10/24/20 PREOP DIAGNOSIS: Lumbar stenosis PLANNED PROCEDURE: Operation Date: 10/24/20 14:35 Proposed Procedures p wound exploration with possible hardware exchange(Not Applicable) - Jam Ordaz DO
--- NOTE | 2020-10-24 14:47 | P.ANESASSM_ITS ---
Pre-Anesthetic Assessment Pre-Anesthetic Assessment: Height/Weight: Height 1.75 m Weight 99.79 kg Temp Pulse Resp BP Pulse Ox 97.9 F 69 18 106/64 93 10/24/20 13:44 10/24/20 14:32 10/24/20 14:32 10/24/20 14:32 10/24/20 14:32 Preop Diagnosis: Lumbar stenosis Proposed Procedure: Operation Date: 10/24/20 14:35 Proposed Procedures p wound exploration with possible hardware exchange(Not Applicable) - Jam Ordaz, DO Familial anesthetic complications: None Was Beta Joe taken within 24 hours: N/A Last intake: NPO > 8 hrs Social: Social History: No alcohol and No tobacco Exam: Pre-Anes Outpt Exam: alert, oriented x 3, clear to auscultation bilaterally and regular rate & rhythm Airway: Cervical ROM: WNL Dentition: Partials Metabolic: Metabolic: DM Musc/skel: Musc/skel: Lower Back Pain and OA/DJD Anesthetic Plan: ASA status: 2 Anesthesia: General Risk of > 500 ml blood loss (7ml/kg in children): No Meds/Allergies Current Medications: Current Medications Generic Name Dose Route Start Last Admin Trade Name Freq PRN Reason Stop Dose Admin Cetirizine HCl 10 mg 10/24/20 09:00 10/24/20 09:14 Cetirizine 10 Mg Tablet PO 10 mg DAILY KATHERYN Administration Cyclobenzaprine HC l 10 mg 10/23/20 19:09 10/23/20 19:31 Cyclobenzaprine 10 Mg Tablet PO 10 mg TID PRN Administration MUSCLE SPASMS Dexamethasone 10 mg 10/23/20 17:00 10/24/20 13:44 Dexamethasone 4 Mg/Ml Inj IVP Not Given QID KATHERYN Diazepam 5 mg 10/23/20 20:39 10/23/20 21:15 Diazepam 5 Mg Ta blet PO 5 mg Q8H PRN Administration ANXIETY Fentanyl 50 mcg 10/24/20 13:56 10/24/20 14:14 Fentanyl 50 Mcg/ Ml Inj 2ml IVP 50 mcg Q10M PRN Administration Preop Pain Hydromorphone HCl 4 mg 10/23/20 13:08 10/24/20 07:36 Hydromorphone 4 Mg Tablet PO 4 mg Q6H PRN Administration SEVERE PAIN Sodium Chloride 1,000 mls @ 75 ml s/hr 10/23/20 14:30 10/24/20 03:06 Sodium Chloride 0.9% IV 75 mls/hr .[id number] KATHERYN Administration Insulin Aspart 0 unit 10/23/20 18:00 10/24/20 13:18 Insulin Aspart 1 00 Unit/1 Ml SUBCUT 6 unit TIDWM KATHERYN Administration Protocol Ketorolac Trometha mine 30 mg 10/23/20 13:08 10/23/20 23:22 Ketorolac 30 Mg/ Ml Inj IVP 10/28/20 13:07 30 mg Q6H PRN Administration MODERATE PAIN Pantoprazole Sodiu m 40 mg 10/24/20 09:00 10/24/20 09:[address] 40 Mg Tablet PO 40 mg DAILY KATHERYN Administration Senna 17.2 mg 10/23/20 21:00 10/23/20 19:31 Sennosides 8.6 M g Tablet PO 17.2 mg BEDTIME KATHERYN Administration Tramadol HCl 50 mg 10/23/20 14:30 10/23/20 19:31 Tramadol 50 Mg T ablet PO 50 mg TID PRN Administration pain PFSH Anesthesia PFSH: Medical History Back pain Cervical disc disorder with myelopathy of mid-cervical region COVID-19 Facet arthritis, degenerative, lumbar spine Headache due to injury of head and neck Intervertebral disc disorder of cervical region with myelopathy Intervertebral disc disorder with radiculopathy of lumbar region Intervertebral disc disorder with radiculopathy of lumbosacral region Lumbar stenosis with neurogenic claudication Spinal stenosis of lumbar region with radiculopathy Type 2 diabetes mellitus Surgical History H/O hernia repair History of lumbar fusion Previous back surgery 11/1991 L5-S1 decompression. 03/1992 L5-S1 decompression, reexploration. 1998 L5-S1 anterior/posterior fusion fixation Family History (Updated 10/23/20 @ 13:58 by Brain Smith MD) Mother Cancer lung cancer Brother Diabetes Father Liver cirrhosis, alcoholic Social History Smoking and tobacco status: never smoked Alcohol intake: never Lives independently: Yes Household members: spouse Housing: House Marital status: service: No Current occupational status: disabled History of recent travel: No Data Anesthesia CBC & Chem 7: 10/23/20 12:09 10/23/20 12:09 Other Labs: Laboratory Results - last 48 hr 10/23/20 10/23/20 10/23/20 12:09 12:09 15:25 WBC 9.7 RBC 4.35 Hgb 12.9 Hct 38.7 L MCV 89.0 MCH 29.7 MCHC 33.3 RDW 12.5 Plt Count 414 H MPV 9.4 Neut % (Auto) 68.5 Lymph % (Auto) 20.8 [place] % (Auto) 6.0 Eos % (Auto) 3.5 Baso % (Auto) 0.5 Neut # (Auto) 6.61 Lymph # (Auto) 2.0 [place] # (Auto) 0.6 Eos # (Auto) 0.3 Baso # (Auto) 0.1 Nucleated RBC % (auto) 0 Nucleated RBCs # 0.0 Sodium 134 L Potassium 4.4 Chloride 99 Carbon Dioxide 26 Anion Gap 13.4 BUN 11 Creatinine 0.7 GFR Calculation 116.2 Glucose 153 H POC Glucose Calculated Osmolality 280 L Calcium 9.4 Total Bilirubin 0.4 AST 29 ALT 36 Alkaline Phosphatase 87 Troponin T Baseline Troponin T 120 Minute Delta Troponin T Troponin T Hi Sens 6Hr Troponin T Hi Sens 6Hr Delta Total Protein 7.1 Albumin 3.9 Globulin 3.2 Urine Color Yellow Urine Appearance Clear Urine pH 6 Ur Specific [place] 1.020 Urine Protein Neg Urine Glucose (UA) Trace H Urine Ketones Negative Urine Blood Neg Urine Nitrate Negative Urine Bilirubin Neg Urine Urobilinogen Norm Ur Leukocyte Esterase Negative 10/23/20 10/23/20 10/23/20 15:33 17:15 17:34 WBC RBC Hgb Hct MCV MCH MCHC RDW Plt Count MPV Neut % (Auto) Lymph % (Auto) [place] % (Auto) Eos % (Auto) Baso % (Auto) Neut # (Auto) Lymph # (Auto) [place] # (Auto) Eos # (Auto) Baso # (Auto) Nucleated RBC % (auto) Nucleated RBCs # Sodium Potassium Chloride Carbon Dioxide Anion Gap BUN Creatinine GFR Calculation Glucose POC Glucose 144 Calculated Osmolality Calcium Total Bilirubin AST ALT Alkaline Phosphatase Troponin T Baseline 15 Troponin T 120 Minute 13.73 Delta Troponin T -1.27 L Troponin T Hi Sens 6Hr Troponin T Hi Sens 6Hr Delta Total Protein Albumin Globulin Urine Color Urine Appearance Urine pH Ur Specific [place] Urine Protein Urine Glucose (UA) Urine Ketones Urine Blood Urine Nitrate Urine Bilirubin Urine Urobilinogen Ur Leukocyte Esterase 10/23/20 10/23/20 10/24/20 21:04 21:20 06:17 WBC RBC Hgb Hct MCV MCH MCHC RDW Plt Count MPV Neut % (Auto) Lymph % (Auto) [place] % (Auto) Eos % (Auto) Baso % (Auto) Neut # (Auto) Lymph # (Auto) [place] # (Auto) Eos # (Auto) Baso # (Auto) Nucleated RBC % (auto) Nucleated RBCs # Sodium Potassium Chloride Carbon Dioxide Anion Gap BUN Creatinine GFR Calculation Glucose POC Glucose 268 204 Calculated Osmolality Calcium Total Bilirubin AST ALT Alkaline Phosphatase Troponin T Baseline Troponin T 120 Minute Delta Troponin T Troponin T Hi Sens 6Hr 12.86 Troponin T Hi Sens 6Hr Delta -2.14 L Total Protein Albumin Globulin Urine Color Urine Appearance Urine pH Ur Specific [place] Urine Protein Urine Glucose (UA) Urine Ketones Urine Blood Urine Nitrate Urine Bilirubin Urine Urobilinogen Ur Leukocyte Esterase 10/24/20 11:18 WBC RBC Hgb Hct MCV MCH MCHC RDW Plt Count MPV Neut % (Auto) Lymph % (Auto) [place] % (Auto) Eos % (Auto) Baso % (Auto) Neut # (Auto) Lymph # (Auto) [place] # (Auto) Eos # (Auto) Baso # (Auto) Nucleated RBC % (auto) Nucleated RBCs # Sodium Potassium Chloride Carbon Dioxide Anion Gap BUN Creatinine GFR Calculation Glucose POC Glucose 173 Calculated Osmolality Calcium Total Bilirubin AST ALT Alkaline Phosphatase Troponin T Baseline Troponin T 120 Minute Delta Troponin T Troponin T Hi Sens 6Hr Troponin T Hi Sens 6Hr Delta Total Protein Albumin Globulin Urine Color Urine Appearance Urine pH Ur Specific [place] Urine Protein Urine Glucose (UA) Urine Ketones Urine Blood Urine Nitrate Urine Bilirubin Urine Urobilinogen Ur Leukocyte Esterase Cardiac Studies: No Data to Display
--- NOTE | 2020-10-24 15:31 | PM.HP ---
Providers/Chief Complaint Admitting Physician: Brain Smith MD Primary Care Provider: Angelica Keita MD Chief Complaint: Back Pain History of Present Illness Papito Flores is a 55 year old male That had revision posterior spine fusion last week. Postop he had right lateral calf pain. However it resolved before he left the hospital. Now he had significantly right pain going down the lateral thigh and lateral leg for the past day patient cannot walk since significant severe pain. Radiates down his leg Review of Systems Narrative: General ROS: negative for weight changes, fever ENT ROS: negative for nasal congestion, drainage or bleeding, sore throat, dysphagia or ear pain Eyes: PERRL Hematological and Lymphatic ROS: negative for swollen glands or abnormal bleeding Endocrine ROS: negative for polyuria/polydpsia or new changes in weight Respiratory ROS: negative for cough, shortness of breath, or wheezing Cardiovascular ROS: negative for chest pain or dyspnea on exertion Gastrointestinal ROS: negative for reflux, abdominal pain, change in bowel habits, or black or bloody stools Musculoskeletal ROS: negative for back pain, neck pain, or joint pain or swelling except for current problem Neurological ROS: negative for TIA or stoke symptoms Skin: no rashes Medications/Allergies Home Medications Medication Instructions Recorded Confirmed Last Taken Type cetirizine 10 mg capsule 10 mg PO DAILY 03/15/20 10/23/20 10/16/20 History tramadol 50 mg tablet 50 mg PO TID PRN 30 Days #90 tab 08/24/20 10/23/20 10/23/20 Rx docusate sodium [DOK] 100 mg PO BID PRN 7 Days #30 cap 10/19/20 10/23/20 10/23/20 Rx hydrocodone-acetaminophen 1 - 2 tab PO Q4H PRN #40 tab 10/19/20 10/23/20 10/23/20 Rx metformin 1,000 mg PO BID@0730,1830 10/23/20 10/23/20 10/23/20 History sitagliptin [Januvia] 100 mg PO DAILY@1200 10/23/20 10/23/20 10/22/20 History Allergies Allergy/AdvReac Type Severity Reaction Status Date / Time morphine Allergy Severe muscle Verified 10/23/20 11:19 tremors, convulsions PFSH Acute PFSH: Medical History Back pain Cervical disc disorder with myelopathy of mid-cervical region COVID-19 Facet arthritis, degenerative, lumbar spine Headache due to injury of head and neck Intervertebral disc disorder of cervical region with myelopathy Intervertebral disc disorder with radiculopathy of lumbar region Intervertebral disc disorder with radiculopathy of lumbosacral region Lumbar stenosis with neurogenic claudication Spinal stenosis of lumbar region with radiculopathy Type 2 diabetes mellitus Surgical History H/O hernia repair History of lumbar fusion Previous back surgery 11/1991 L5-S1 decompression. 03/1992 L5-S1 decompression, reexploration. 1998 L5-S1 anterior/posterior fusion fixation Family History (Updated 10/23/20 @ 13:58 by Brain Smith MD) Mother Cancer lung cancer Brother Diabetes Father Liver cirrhosis, alcoholic Social History Smoking and tobacco status: never smoked Alcohol intake: never Lives independently: Yes Household members: spouse Housing: House Marital status: service: No Current occupational status: disabled History of recent travel: No Vitals/I&O/Wt Last Vital Signs Temp 97.9 F 10/24/20 13:44 Pulse 71 10/24/20 15:07 Resp 17 10/24/20 15:07 BP 122/65 10/24/20 15:07 Pulse Ox 95 10/24/20 15:07 10/24/20 10/24/20 10/24/20 06:59 14:59 22:59 Intake Total 855 / 1935 Balance 855 / 1935 Weight last 48 hrs Weight 220 lb Physical Exam Narrative: EXAM NARRATIVE: Severe right leg pain. Difficult to get a good exam. Data : 10/23/20 12:09 10/23/20 12:09 A&P Additional A&P Information Status post posterior spine fusion with new onset of right leg pain approximately week later. Plan is to take him to the OR and reexplore possible exchange screws if needed. Attestations Medical Necessity Statement*: severe r leg pain needing surgery Coding Level of Care Code Acute Research Environmental Scientist for Harini Sen
--- NOTE | 2020-10-24 16:00 | ANE.PACU2 ---
Inpatient post-anesthesia follow up: Airway intact: Yes Vital signs: Temperature 97.6 F Pulse Rate [Left R adial] 81 Pulse Rate 81 Respiratory Rate 16 Blood Pressure [Le ft Arm] 127/79 Blood Pressure 107/67 Pulse Oximetry 95 Oxygen Delivery Me thod Room Air Oxygen Flow Rate 8 Fraction of Inspir ed Oxygen Hydration adequate: Yes Nausea and vomiting: No Pain level: 3 Mental status: Baseline
[2020-10-24] MEDS: thrombin 5,000 unit SDV 5000 UNIT (17:21)
--- NOTE | 2020-10-24 17:57 | P.OP_ITS ---
Operative Report Date of procedure: October 24, 2020 Pre-op Diagnosis: Lumbar stenosis Post-op diagnosis: same Procedure Done: 1. Re-explore L3-S1 2. partial facetectomy L4/5 Surgeon: Jam Ordaz Anesthesia: General Estimated blood loss (mL): 100 Condition: stable Disposition: PACU Procedure: Patient is brought to the operative suite neuro monitoring was done prior to flipping the right L5 nerve root was showing that it was inflamed. The patient then flipped into the prone position all areas impingement were well- padded. Skin shows made using the previous skin incision the wound was opened was noticed that the dura was swollen and compressing over to the right side the facet was drilled down was hypertrophic at L45 the L5 nerve root was traced all the way around the pedicle of L5 past the lateral edge of the pedicle the edges of the pedicle palpated with a curette and directly visualized the L5 nerve root was directly visualized from L4 pedicle all the way down to the inferior portion of the L5 pedicle and as it went out laterally. The displaced was visualized both on the right and left side using nerve retractor. Wounds were irrigated pedicle screws were stemmed by be greater than 20 L4-L5 and S1. Rods were then placed back on rods were taken off and put back on. The wounds were then irrigated and closed with transfer suture in a layered fashion deep drain was placed and skin was closed with stress for suture as well and a glue was used to close the incision and patient was transferred to the PACU in stable condition neuro monitoring showed that the nerve was completely freed up did not show any of the information should prior to surgery.
--- NOTE | 2020-10-24 18:03 | SUR.PHASEI ---
1803 PT HAS SENSATION/MOVEMENT TO BILATERAL FEET, PEDAL PULSES PALPATED, CAP REFILL <3 SEC
--- NOTE | 2020-10-24 18:15 | PC.NURSE ---
Patient back to room. Alert. Oriented x 3.
[2020-10-24 18:36] LABS: Glucose Point of Care 210 mg/dL (70-110)
[2020-10-24] MEDS: metformin 500 mg Tablet 1000 MG PO (19:10)
[2020-10-24] MEDS: lactated ringers 1,000 ML 90 ML IV (19:12)
[2020-10-24 20:33] LABS: Glucose Point of Care 271 mg/dL (70-110)
[2020-10-24] MEDS: sennosides 8.6 mg Tablet 17.2 MG PO (20:54)
[2020-10-24] MEDS: cyclobenzaprine 10 mg Tablet PO (21:05)
--- NOTE | 2020-10-24 22:01 | PC.NURSE ---
PAIN Pt having lower back pain tonight for which he has been medicated. Says no pain in right hip or leg now and is thankful for this. Denies any numbness or tingling of lower extremities
[2020-10-25] VITALS (11 sets, daily range): BP systolic 105–126; BP diastolic 63–72; PULSE 67–81; RESP 16–20; TEMP 36.4–36.8; O2SAT 93–98
[2020-10-25] MEDS: cyclobenzaprine 10 mg Tablet PO ×3 (04:39→23:45)
[2020-10-25] MEDS: lactated ringers 1,000 ML 90 ML IV ×2 (05:37→20:01)
[2020-10-25] MEDS: enoxaparin 40 mg/0.4 mL Syringe SUBCUT (05:37)
--- NOTE | 2020-10-25 06:09 | PC.NURSE ---
SHIFT YAQUELIN Very pleasant gentleman. Has c/o medial low back pain tonight but says right leg pain has stopped. Says leg feels a little sore but is so good to not have the pain. Has received pain meds as needed. Drsg to lower medial back and abd binder in place. Hemovac drain with 90ml sanguinous liquid drainage this shift. IV fluids infusing without difficulty. Urinating well.
[2020-10-25 06:40] LABS: Glucose Point of Care 144 mg/dL (70-110)
[2020-10-25] MEDS: pantoprazole DR 40 mg Tablet PO (07:55)
[2020-10-25] MEDS: metformin 500 mg Tablet 1000 MG PO ×2 (07:55→17:32)
[2020-10-25] MEDS: docusate sodium 100 mg Capsule PO ×2 (07:55→17:32)
--- NOTE | 2020-10-25 08:18 | PM.PN ---
Subjective Subjective: Interval history: pt doing well Righ leg radicular pain significantly impproved Vitals/I&O/Wt Last Vital Signs Temp 97.9 F 10/25/20 08:00 Pulse 71 10/25/20 08:00 Resp 17 10/25/20 08:00 BP 105/63 10/25/20 08:00 Pulse Ox 98 10/25/20 08:00 10/24/20 10/25/20 10/25/20 22:59 06:59 14:59 Intake Total 1550 / 1550 1417.5 / 2967.5 Output Total 550 / 550 1040 / 1590 Balance 1000 / 1000 377.5 / 1377.5 Weight last 48 hrs Weight 220 lb Physical Exam Narrative: EXAM NARRATIVE: 03/13 strength Data : 10/23/20 12:09 10/23/20 12:09 A&P Additional A&P Information POD#1 re explore revison fusion Up with PT today d/c likely tomorrow Attestations Medical Necessity Statement*: needs to work with PT today before d/c tomorrow Coding Level of Care Code Acute Meeting Specialist for Harini Sen
[2020-10-25] MEDS: HYDROcodone-acetaminophen 5-325 mg Tablet PO ×3 (08:19→21:49)
--- NOTE | 2020-10-25 09:21 | PC.NURSE ---
Dr. Ordaz new orders received for hemovac to be removed, removed by this nurse intact upon removal, 4X4's placed with tape. Abdominal binder repositioned.
[2020-10-25 11:14] LABS: Glucose Point of Care 167 mg/dL (70-110)
[2020-10-25] MEDS: sitagliptin 100 mg Tablet PO (11:59)
--- NOTE | 2020-10-25 12:06 | PM.PN ---
Subjective Subjective: Interval history: Patient reports that he has low back pain post surgery but otherwise his right lower extremity pain almost completely gone and he has only minimal discomfort. Denies shortness of breath or chest pain Vitals/I&O/Wt Last Vital Signs Temp 97.9 F 10/25/20 08:00 Pulse 71 10/25/20 08:00 Resp 17 10/25/20 08:00 BP 105/63 10/25/20 08:00 Pulse Ox 98 10/25/20 08:00 10/24/20 10/25/20 10/25/20 22:59 06:59 14:59 Intake Total 1550 / 1550 1417.5 / 2967.5 240 / 240 Output Total 550 / 550 1040 / 1590 580 / 580 Balance 1000 / 1000 377.5 / 1377.5 -340 / -340 Physical Exam Narrative: EXAM NARRATIVE: Alert and oriented x3. No and significant distress.. Heart is regular and lungs are clear. No focal neurological findings. Data : 10/23/20 12:09 10/23/20 12:09 A&P Assessment and plan (1) Postoperative back pain: Status: Acute (2) Type 2 diabetes mellitus: Status: Acute Qualifiers: Diabetes mellitus watermelon harvesting supervisor insulin use: without jail use Diabetes mellitus complication status: without complication Qualified Code(s): E11.9 - Type 2 diabetes mellitus without complications (3) Lumbar post-laminectomy syndrome: Status: Acute (4) Dehydration with hyponatremia: Status: Acute Additional A&P Information PLAN: Continue current monitoring and treatment including analgesics. Plan to dismiss patient home tomorrow. I will give patient 1 more dose of analgesic so he can easier to tolerate physical therapy. Attestations Medical Necessity Statement*: Patient post surgery requires close inpatient monitoring and treatment until deemed safe for discharge. Coding Level of Care Code Acute Gun Stock Maker for [facility] Diagnoses Postoperative back pain G89.18 Type 2 diabetes mellitus E11.9 Diabetes mellitus jail insulin use: without watermelon harvesting supervisor use Diabetes mellitus complication status: without complication Lumbar post-laminectomy syndrome M96.1 Dehydration with hyponatremia E86.0; E87.1
[2020-10-25 17:13] LABS: Glucose Point of Care 181 mg/dL (70-110)
[2020-10-25] MEDS: sennosides 8.6 mg Tablet 17.2 MG PO (20:00)
--- NOTE | 2020-10-25 22:27 | PC.NURSE ---
Pain Patient states he is having pain in the right 4th digit and up the back of his calf again. He states this is the same pain he was having prior to surgery. Patient given dilaudid for pain and hydrocodone approximately 1.5 hours later because his pain was still about a 7/10. Patient was also given an ice pack for his back. Patient is sleeping at this time.
[2020-10-25] MEDS: acetaminophen 325 mg Tablet 650 MG PO (23:47)
[2020-10-26] VITALS (10 sets, daily range): BP systolic 106–123; BP diastolic 67–77; PULSE 62–85; RESP 16–18; TEMP 36.3–36.7; O2SAT 94–97
[2020-10-26 02:41] LABS: Basophils % 0.4 %; Eosinophils # 0.2 10^3/uL (0.0-0.8); Hematocrit 32.4 % (42.0-52.0); Hemoglobin 10.1 g/dL (11.7-16.6); Lymphocytes % 29.8 %; Mean Corpuscular HGB Conc 31.2 g/dL (30.0-36.0); Mean Corpuscular Hemoglobin 29.4 pg (28.0-34.0); Mean Corpuscular Volume 94.2 fL (80-94); Mean Platelet Volume 9.5 fL (7.4-10.4); Monocytes % 9.6 %; Neutrophils # 5.81 10^3/uL (1.8-7.7); Neutrophils % 57.7 %; Nucleated Red Blood Cells % 0 %; Platelet Count 334 10^3/cmm (130-400); Red Blood Count 3.44 10^6/uL (4.1-5.3); Red Cell Distribution Width 13.3 % (12.1-15.1); White Blood Count 10.1 10^3/uL (4.0-10.0)
[2020-10-26 03:07] LABS: Alanine Aminotransferase 28 U/L (0-41); Albumin Level 3.3 g/dL (3.5-5.2); Alkaline Phosphatase 71 IU/L (40-130); Anion Gap 10.6 (5-19); Aspartate Amino Transferase 27 U/L (0-40); Blood Urea Nitrogen 17 mg/dL (6-20); Calcium 8.5 mg/dL (8.5-10.5); Carbon Dioxide 30 mmol/L (22-29); Chloride 103 mmol/L (98-107); Creatinine Clr Calc Pharmacy 105.4612; Globulin 2.5 g/dL (1.3-4.6); Glucose 101 mg/dL (65-115); Osmolality Calculated 290 mOsm/kg (285-295); Potassium 4.6 mmol/L (3.5-5.1); Sodium 139 mmol/L (136-145); Total Bilirubin 0.3 mg/dL (0.15-1.2); Total Protein 5.8 g/dL (6.6-8.7)
[2020-10-26] MEDS: HYDROcodone-acetaminophen 5-325 mg Tablet PO ×4 (03:10→17:13)
[2020-10-26] MEDS: diazePAM 5 mg Tablet PO ×2 (03:11→08:56)
[2020-10-26] MEDS: enoxaparin 40 mg/0.4 mL Syringe SUBCUT (06:16)
[2020-10-26] MEDS: metformin 500 mg Tablet 1000 MG PO (06:30)
[2020-10-26 06:31] LABS: Glucose Point of Care 99 mg/dL (70-110)
--- NOTE | 2020-10-26 06:36 | PC.NURSE ---
pain Patient is still having increasing pain that goes down his hip and into the 4th toe. He states nothing has helped ease the pain. Patient did not want to alert the doctor. Patient just wants to visit with him when he rounds on him.
[2020-10-26] MEDS: cyclobenzaprine 10 mg Tablet PO (07:20)
--- NOTE | 2020-10-26 08:50 | PC.SOCIAL ---
IMM Page 2 of IMM explained to and provided to patient. Initialed, dated, and timed and placed in chart.
[2020-10-26] MEDS: docusate sodium 100 mg Capsule PO ×2 (08:56→17:13)
[2020-10-26] MEDS: pantoprazole DR 40 mg Tablet PO (08:56)
--- NOTE | 2020-10-26 08:59 | P.DS_ITS ---
Discharge Providers Date of Admission: 10/23/20 12:58 Date of Discharge: October 26, 2020 Attending Provider at Admission: Brain Smith MD Attending Provider at Discharge: Brain Smith MD Primary Care Provider: Angelica Keita MD Diagnoses at Discharge Discharge Diagnosis (1) Postoperative back pain: Status: Acute (2) Type 2 diabetes mellitus: Status: Acute Qualifiers: Diabetes mellitus fci insulin use: without predatory animal exterminator use Diabetes mellitus complication status: without complication Qualified Code(s): E11.9 - Type 2 diabetes mellitus without complications (3) Lumbar post-laminectomy syndrome: Status: Acute (4) Dehydration with hyponatremia: Status: Acute Reason for Visit Reason for Visit: Back Pain Hospital Course Hospital Course Patient was admitted to the hospital on October 23. He is having severe right leg pain. Patient had surgery on October 24. To resolve the symptoms. Postop day 1 patient symptoms were completely gone. Postop day #2 patient stated he ambulated all day the day before and now the symptoms are back today. Plan will be to discharge him today and I told him to take it easy with walking the next couple weeks. We will see him back in the clinic in 2 weeks. Physical Exam Narrative: EXAM NARRATIVE: Patient is having right leg pain again this morning. Patient has bilateral strength in plantar flexion dorsiflexion and EHL. At 5 out of 5. Sensation is intact. Pain occurs when he walks when he is laying in bed is not as bad. Discharge Data Data Completed and Pending: Completed Studies During Hospitalization Category Date Time Status CT lumbar spine w o con* [id number] Urgen t Cat Scan 10/23/20 11:[address] thoracic spin wo con* [id number] Urge nt Cat Scan 10/23/20 11:39 Completed Pending at discharge Category Date Time Status Complete Blood Co unt w/Auto AM LABS Lab 10/27/20 04:00 Ordered Complete Blood Co unt w/Auto AM LABS Lab 10/28/20 04:00 Ordered Comprehensive Met abolic Panel AM LA BS Lab 10/27/20 04:00 Ordered Comprehensive Met abolic Panel AM LA BS Lab 10/28/20 04:00 Ordered Labs from last 24 hours 10/26/20 10/26/20 10/26/20 06:29 01:46 01:46 WBC 10.1 H RBC 3.44 L Hgb 10.1 L Hct 32.4 L MCV 94.2 H MCH 29.4 MCHC 31.2 RDW 13.3 Plt Count 334 MPV 9.5 Neut % (Auto) 57.7 Lymph % (Auto) 29.8 [place] % (Auto) 9.6 Eos % (Auto) 2.0 Baso % (Auto) 0.4 Neut # (Auto) 5.81 Lymph # (Auto) 3.0 [place] # (Auto) 1.0 H Eos # (Auto) 0.2 Baso # (Auto) 0.0 Nucleated RBC % (a uto) 0 Nucleated RBCs # 0.0 Sodium 139 Potassium 4.6 Chloride 103 Carbon Dioxide 30 H Anion Gap 10.6 BUN 17 Creatinine 0.9 GFR Calculation 87.0 L Glucose 101 POC Glucose 99 Calculated Osmolal ity 290 Calcium 8.5 Total Bilirubin 0.3 AST 27 ALT 28 Alkaline Phosphata se 71 Total Protein 5.8 L Albumin 3.3 L Globulin 2.5 10/25/20 10/25/20 17:05 11:05 WBC RBC Hgb Hct MCV MCH MCHC RDW Plt Count MPV Neut % (Auto) Lymph % (Auto) [place] % (Auto) Eos % (Auto) Baso % (Auto) Neut # (Auto) Lymph # (Auto) [place] # (Auto) Eos # (Auto) Baso # (Auto) Nucleated RBC % (a uto) Nucleated RBCs # Sodium Potassium Chloride Carbon Dioxide Anion Gap BUN Creatinine GFR Calculation Glucose POC Glucose 181 167 Calculated Osmolal ity Calcium Total Bilirubin AST ALT Alkaline Phosphata se Total Protein Albumin Globulin Vitals: Last Vital Signs Temp 97.4 F L 10/26/20 07:37 Pulse 63 10/26/20 07:37 Resp 18 10/26/20 08:56 BP 107/68 10/26/20 07:37 Pulse Ox 96 10/26/20 07:37 Discharge Plan Discharge Patient Disposition: Home Condition: Stable Prescriptions: New cyclobenzaprine 10 mg Tablet 10 mg PO TID PRN (Reason: Muscle Spasms) Qty: 14 RF: 0 hydromorphone 4 mg Tablet 4 mg PO Q6H PRN (Reason: Severe Pain) Qty: 60 RF: 0 Continued tramadol 50 mg tablet 50 mg PO TID PRN (Reason: pain) 30 Days Qty: 90 RF: 0 All Day Allergy (cetirizine) 10 mg capsule 10 mg PO DAILY RF: 0 docusate sodium [DOK] 100 mg Capsule 100 mg PO BID PRN (Reason: constipation) 7 Days Qty: 30 RF: 0 metformin 1,000 mg tablet 1,000 mg PO BID@0730,1830 RF: 0 Januvia 100 mg tablet 100 mg PO DAILY@1200 RF: 0 Discontinued hydrocodone-acetaminophen 5-325 mg Tablet 1 - 2 tab PO Q4H PRN (Reason: Moderate To Severe Pain) Qty: 40 RF: 0 Discharge Orders: Discharge Order (Routine); Ordered 10/26/20 Ordered By: Jam Ordaz Referrals: Angelica Keita MD [Primary Care Provider] - Discharge Diet: Advance as tolerated Discharge Activity: Limit activity as instructed Activity Restrictions/Additional Instructions: Thank you for [facility] for your care! The following is a list of instructions, from your provider, to follow upon your discharge to ensure you have the optimal recovery from your recent injury orsurgery. Follow-up care is a skinner part of your treatment and safety. Be sure to make and go to all appointments, and call your doctor if you are having problems. If you do not already have a follow-up appointment made, call Dr. Ordaz office in the next 1-3 days to make follow up appointment for 2 weeks at [phone]. It is also a good idea to know your test results and keep a list of the medicines you take. Medications will be prescribed for you at your provider's discretion. These medications are to be used as instructed; if they are taken more often that prescribed they will not be refilled early and in most cases will not be refilled at all. > When a refill is needed,you should contact carol azul 2-3 business days before your prescription runs out. Medications will NOT be refilled by wagon person providers after hours! > Many pain medications contain Tylenol (Acetaminophen). Do not consume more than 4,000 mg of Tylenol per day in total with any combination ofmedications. > Pain medications can cause constipation. Please use an over the counter stool softener as directed, while taking pain medications. Consulty our local pharmacist with questions or recommendations on stool softeners. If constipation persists, contact our office or your primary care provider. > While under our care,you are not to receive pain medications or other controlled substances from any other provider unless our office is notified and approves. Any attempts to do so will result in refusal to prescribe any further pain medications and possible dismissal from our practice. ? Your wound and/or dressing should remain clean and dry for 2 days after surgery. On postoperative day 2 (48 hours after your surgery) the dressing (if present) should be removed and it is okay to shower and get the incision wet. Pad dry afterwards. No further dressing should be required from that point on. Do not put any creams or ointments on theincision > It is normal for there to be a small amount of discharge (bloody or blood tinged) present from a surgical wound for the first 1-3days. > The wound should be examined twice a day for signs of infection. Mild redness or bruising is to be expected but indications that an infection maybe starting would include; An increase in redness, swelling, or discharge, a foul odor present around the incision, and/or a fever greater than 101 ?F ? Showering is permitted, however we ask that you do not take a bath, sit in a whirlpool / Jacuzzi, or go swimming for 1 month. For only the first 2 days after surgery, lt wilt be necessary for you to cover your wound/dressing with plastic and tape to keep it dry. ? Walking is essential for the healing process after surgery. We would like you to slowly advance your walking. This should be done on relatively flat clear ground (inside or out) or can be done on a treadmill. Remember this goal does not have to happen all at once, slowly increase your distance and duration. This can be broken into more more than one walk per day as tolerated. Patients who walk as directed after surgery rarely require Phy sical Therapy. In the unlikely event this issue arises your provider will direct hospital staff to make the appropriate arrangements. ? No lifting over 5 pounds {a gallon of milk) or bending/twisting until further notice. Each of these activities places an unnecessary amount of stress onto the body and can impede the delicate healing process. > Instead of bending at the waist, keep your back straight and bend at the knees. > Instead of twisting your torso, keep your back straight and turn your entire body with your feet. ? You may sleep in any position which makes you comfortable. Many patients find comfort sleeping in a reclining chair. It is not abnormal to have difficulty sleeping for the first several weeks following your surgery. We recommend trying Benadry! or Tylenol PM as directed to help with your sleeping difficulties. Both medications are over the counter and available withoutprescription. ? NO SMOKING!!! Smoking dramatically increases the probability of developing postoperative wound infections. ? Common complaints after lumbar and/or thoracic spine surgery include, but are not limited to: numbness and/or tingling in the legs, pain around the incision and surrounding tissues, muscle spasms, or stiffness of the middle to low back. Contact our office if these symptoms persist or if an acute change occurs. ? No driving for the first 3-5days, and not while taking narcotics until seen at your follow-up appointment and cleared. There are no restrictions for riding on short trips, however if you take a longer trip, arrangements should be made to make regular stops to get out of the vehicle and stretch . ? Swelling is an unfortunate event that will take place with any surgery and is the primary source of your postoperative discomfort. While walking and regular approved activities helps control inflammation, there are additional steps you can take to minimizeswelling. > Place ice over the surgical site and surrounding tissue for twenty minutes, followed by applying a low/medium heat (heating pad) for an additional twenty minutes every 1-2 hours as needed for painrelief. > You may use of over the counter anti-inflammatory medications (Ibuprofen, Motrin, Aleve, Advil, etc) as directed on the package label. These types of medicines wm significantly reduce the amount of discomfort you exp erience after surgery from swelling. It should be noted that if you have and allergy to any of these medications, or a history of ulcers or kidney disease you should consult you primary care provider prior to starting these medications. Discharge Attestations Time Spent in Discharge Care*: less than 30 min Quality Metrics Clinical Quality Measures During this hospital stay, did patient experience: None Coding Level of Care Code Acute Staff Psychologist for [facility] Diagnoses Postoperative back pain G89.18 Type 2 diabetes mellitus E11.9 Diabetes mellitus fci insulin use: without predatory animal exterminator use Diabetes mellitus complication status: without complication Lumbar post-laminectomy syndrome M96.1 Dehydration with hyponatremia E86.0; E87.1
--- NOTE | 2020-10-26 09:44 | PC.CHAP ---
Pastoral Care Encounter/Spiritual Assessment Type of Contact [] Declined diesel mechanic construction visit [] Patient/Family/Request visit [] Outpatient visit [] Follow-up visit [] Physician referral [] Code/Alert [] Routine visit [] Staff referral [] Actively dying [] Patient sleeping [] Family support [] [] Out of room [] Palliative care [] [] Receiving care in room [] Pre-surgical visit [] Trauma [] Long length of stay [] ICU visit [] Other: Relational/Emotional Strength [x] Patient feels connected with others/family/visitors/staff [] Distress [] Loneliness/isolation [] Abandonment Spirituality of Patient [x] Person of Aida [x] Attends Voodoo of their Aida [x] Believes in Prayer [] Reads Bible or Scientologist materials [] There are Spiritual issues to be addressed Orange Picker Machine Operator Interventions [x] Prayer [] Active listening [] Non-anxious presence [] Spiritual/emotional support [] Crisis/trauma care [] Spiritual counseling [] Bereavement support [] Provided bereavement packet [] Provided Bible/devotional materials [] Provided toy/stuffed animal, coloring book to patient or family member [] Provided Communion [] Anointing/[place] [] Salvation [x] Completed spiritual assessment [] Other: Impact on Illness or Injury [] Angry [] Fearful [] Anxious [] Often cries [] Exhaustion [] Unable to work [] Unable to attend druze [] Unable to walk/stand [] Unable to read [] Unable to drive [] Unable to eat/drink [] Unable to sleep [] Unable to be with family [] Patient intubated [] Other: Time spent with patient 10 min
[2020-10-26 11:10] LABS: Glucose Point of Care 133 mg/dL (70-110)
[2020-10-26] MEDS: sitagliptin 100 mg Tablet PO (11:39)
--- NOTE | 2020-10-26 14:50 | PM.PN ---
Subjective Subjective: Interval history: Patient reports that he started again having some right lower extremity discomfort. Patient denies shortness of breath or chest pain. He is able to ambulate with a walker and plan for patient to be dismissed home today with outpatient follow-up in 2 weeks. Vitals/I&O/Wt Last Vital Signs Temp 97.7 F 10/26/20 12:00 Pulse 85 10/26/20 12:00 Resp 18 10/26/20 12:00 BP 121/72 10/26/20 12:00 Pulse Ox 97 10/26/20 12:00 10/25/20 10/26/20 10/26/20 22:59 06:59 14:59 Intake Total 925 / 1225 360 / 360 Output Total 300 / 880 1600 / 2480 200 / 200 Balance 625 / 345 -1600 / -1255 160 / 160 Physical Exam Narrative: EXAM NARRATIVE: Alert and oriented x3. No and significant distress.. Heart is regular and lungs are clear. No focal neurological findings. Data : 10/26/20 01:46 10/26/20 01:46 A&P Assessment and plan (1) Postoperative back pain: Status: Acute (2) Type 2 diabetes mellitus: Status: Acute Qualifiers: Diabetes mellitus marine oil terminal superintendent insulin use: without marine oil terminal superintendent use Diabetes mellitus complication status: without complication Qualified Code(s): E11.9 - Type 2 diabetes mellitus without complications (3) Lumbar post-laminectomy syndrome: Status: Acute (4) Dehydration with hyponatremia: Status: Acute Additional A&P Information PLAN: Discussed with patient that if his pain continues in couple weeks after inflammation subsides then further evaluation by neurology service with nerve conduction study could be considered. Patient reports that he knows Dr. Ham well and will consider contacting if pain does not subside after inflammation is down. Dr. Ordaz already completed discharge summary. Please refer to his note. Attestations Medical Necessity Statement*: Patient is being discharged. 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
== END 2020-10-26 17:20 | disposition home or self-care (01) | DRG 940 ==
LOC: ER 13:13 → MEDSURG 13:35
PROVIDERS: Orthopaedic Surgery; Admitting Provider Internal Medicine; Emergency Provider Emergency Medicine; PCP Family Medicine; Visit Provider Internal Medicine
DX: G89.18 Other acute postprocedural pain (principal); E87.1 Hypo-osmolality and hyponatremia; M51.06 Intervertebral disc disorders with myelopathy, lumbar region; M48.061 Spinal stenosis, lumbar region without neurogenic claudication; E11.9 Type 2 diabetes mellitus without complications; Z98.1 Arthrodesis status; M96.1 Postlaminectomy syndrome, not elsewhere classified; E86.0 Dehydration; Z86.19 Personal history of other infectious and parasitic diseases
CPT/HCPCS: 12345; 36415; 36416; 72100; 72128; 72131; 80053; 81003; 82962; 84484; 85025; 93005; 96372; 96375; 97161; 97165; 99282; J0131; J0690; J1100; J1170; J1650; J1815; J1885; J2405; J2704; J3010; J3490; J7030

== ENCOUNTER → 2020-12-11 08:25 | Outpatient (BNVA) | payer MEDICARE, SELFPAY | PROVIDERS: PCP Family Medicine; Visit Provider Orthopaedic Surgery | DX: G89.18 Other acute postprocedural pain (principal); Z47.89 Encounter for other orthopedic aftercare | CPT/HCPCS: 72114 ==

== ENCOUNTER → 2021-01-08 08:15 | Outpatient (BNVA) | payer MEDICARE, SELFPAY | PROVIDERS: PCP Family Medicine; Visit Provider Orthopaedic Surgery | DX: G89.18 Other acute postprocedural pain (principal); Z98.1 Arthrodesis status; Z47.89 Encounter for other orthopedic aftercare | CPT/HCPCS: 72100 ==

== ENCOUNTER → 2021-01-10 09:49 | Outpatient (BNVA) | payer MEDICARE, SELFPAY | PROVIDERS: PCP Family Medicine; Visit Provider Family Medicine | DX: E11.9 Type 2 diabetes mellitus without complications (principal); M48.062 Spinal stenosis, lumbar region with neurogenic claudication | CPT/HCPCS: 80053; 80061; 83036 ==

== ENCOUNTER → 2021-03-25 14:57 | Outpatient (BNVA) | payer MEDICARE, SELFPAY | PROVIDERS: PCP Family Medicine; Visit Provider Family Medicine | DX: E11.9 Type 2 diabetes mellitus without complications (principal) | CPT/HCPCS: 80048; 83036 ==

== ENCOUNTER → 2021-06-20 10:20 | Outpatient (BNVA) | payer MEDICARE, SELFPAY | PROVIDERS: PCP Family Medicine; Visit Provider Nurse Practitioner Family | DX: Z20.822 Contact with and (suspected) exposure to COVID-19 (principal) | CPT/HCPCS: 87635 ==

== ENCOUNTER → 2021-06-26 18:00 | Outpatient (BNVA) | payer MEDICARE, SELFPAY | PROVIDERS: PCP Family Medicine; Visit Provider Family Medicine | DX: E11.9 Type 2 diabetes mellitus without complications (principal); M48.062 Spinal stenosis, lumbar region with neurogenic claudication | CPT/HCPCS: 80053; 83036 ==

== ENCOUNTER → 2021-09-11 11:08 | Outpatient (BNVA) | payer MEDICARE, SELFPAY | PROVIDERS: PCP Family Medicine; Visit Provider Family Medicine | DX: E11.9 Type 2 diabetes mellitus without complications (principal); M77.8 Other enthesopathies, not elsewhere classified; M54.16 Radiculopathy, lumbar region; M48.062 Spinal stenosis, lumbar region with neurogenic claudication | CPT/HCPCS: 80053; 83036 ==

== ENCOUNTER → 2022-01-08 08:20 | Outpatient (BNVA) | payer MEDICARE, SELFPAY | PROVIDERS: PCP Family Medicine; Visit Provider Family Medicine | DX: M77.8 Other enthesopathies, not elsewhere classified (principal); E11.9 Type 2 diabetes mellitus without complications; Z13.220 Encounter for screening for lipoid disorders; Z13.6 Encounter for screening for cardiovascular disorders; M54.2 Cervicalgia; M25.511 Pain in right shoulder | CPT/HCPCS: 73030; 80048; 80061; 83036 ==

== ENCOUNTER 2022-02-04 06:00 | Outpatient (RCR) | payer MEDICARE, SELFPAY | END 2022-02-06 23:59 | disposition home or self-care (01) | LOC: MPT 06:00 | PROVIDERS: PCP Family Medicine; Referring Provider Orthopaedic Surgery; Visit Provider Orthopaedic Surgery | DX: M25.511 Pain in right shoulder (principal); M75.01 Adhesive capsulitis of right shoulder | CPT/HCPCS: 97162 ==

== ENCOUNTER 2022-02-07 06:00 | Outpatient (RCR) | payer MEDICARE, SELFPAY | END 2022-03-08 23:59 | disposition home or self-care (01) | LOC: MPT 06:00 | PROVIDERS: PCP Family Medicine; Referring Provider Orthopaedic Surgery; Visit Provider Orthopaedic Surgery | DX: M25.511 Pain in right shoulder (principal); M75.01 Adhesive capsulitis of right shoulder | CPT/HCPCS: 97110; 97140; G0283 ==

== ENCOUNTER 2022-03-09 06:00 | Outpatient (RCR) | payer MEDICARE, SELFPAY | END 2022-04-08 23:59 | disposition home or self-care (01) | LOC: MPT 06:00 | PROVIDERS: PCP Family Medicine; Referring Provider Orthopaedic Surgery; Visit Provider Orthopaedic Surgery | DX: M54.16 Radiculopathy, lumbar region (principal) | CPT/HCPCS: 97110; G0283 ==

== ENCOUNTER → 2022-04-28 15:29 | Outpatient (BNVA) | payer MEDICARE, SELFPAY | PROVIDERS: PCP Family Medicine; Visit Provider Family Medicine | DX: E11.9 Type 2 diabetes mellitus without complications (principal); I83.812 Varicose veins of left lower extremity with pain; J34.2 Deviated nasal septum; J32.0 Chronic maxillary sinusitis; Z63.6 Dependent relative needing care at home; R74.8 Abnormal levels of other serum enzymes | CPT/HCPCS: 80053; 83036 ==

== ENCOUNTER → 2022-07-17 08:55 | Outpatient (BNVA) | payer MEDICARE, SELFPAY | PROVIDERS: PCP Family Medicine; Visit Provider Thoracic Surgery (Cardiothoracic Vascular Surgery) | DX: I83.812 Varicose veins of left lower extremity with pain (principal) | CPT/HCPCS: 99202; 99203 ==

== ENCOUNTER → 2022-07-29 08:28 | Outpatient (BNVA) | payer MEDICARE, SELFPAY | PROVIDERS: PCP Family Medicine; Visit Provider Family Medicine | DX: E11.9 Type 2 diabetes mellitus without complications (principal); R74.8 Abnormal levels of other serum enzymes; Z12.5 Encounter for screening for malignant neoplasm of prostate; K21.9 Gastro-esophageal reflux disease without esophagitis; I83.812 Varicose veins of left lower extremity with pain | CPT/HCPCS: 80053; 83036; 84153 ==

== ENCOUNTER 2022-08-26 12:15 | Outpatient (CLI) | payer MEDICARE, SELFPAY ==
--- NOTE | 2022-08-26 12:30 | USCV_ITS ---
Mark Papito Age: 57 Gender: M : 1965 Exam Date: 08/26/2022 12:45 Ordering Phys: Domo Perez MD (Andy) ([email or web address]) Technologist: Kg Will Exam Location: [facility] [place] Indication: HISTORY: PROCEDURES: Bilateral duplex Venous Insufficiency study of the Deep and Superficial systems was carried out according to normal protocol with the patient in supine positon for deep system and dependent position for the superficial system. FINDINGS: All deep veins demonstrated compressibility without evidence of intraluminal thrombus or increased echogenicity. Spectral analysis of Doppler signals demonstrates normal response to compression maneuvers indicating patency without obstruction. Reflux determinations were made with the patient in the dependent position, the weight being on the contralateral leg. There is significant reflux on the rt. Left side reflux was much more significant and at almost all levels. there will be some difficulty navigating because of tortuous mid portion of gsv. Multiple perforators off of gsv CONCLUSIONS 1. No evidence of DVT in the above-mentioned identifiable veins. 2. On the right side, significant venous reflux of greater than 500 ms are noted at the saphenofemoral junction and at the level of the mid greater saphenous vein segment. The mid greater saphenous vein segment was measuring 0.29 cm in diameter at a depth of 1.27 cm. No other significant reflexes were noted on the right side. 3. On the left side significant venous reflux of greater than 500 ms were noted throughout the greater saphenous vein segments, including the saphenofemoral junction. The venous segments were measuring anywhere from 0.54 to 1.26 cm in diameter and at a depth of more than 1 cm from the surface except the greater saphenous vein segment, at the below-knee level. 4. No significant reflux were noted in the small saphenous veins on either side. Dr João Kunz MD [facility] (Electronically Signed) Final Date: 26 August 2022 22:59 S
== END 2022-08-26 12:16 | disposition home or self-care (01) ==
LOC: RAD 12:17
PROVIDERS: PCP Family Medicine; Visit Provider Thoracic Surgery (Cardiothoracic Vascular Surgery)
DX: I83.812 Varicose veins of left lower extremity with pain (principal); I87.2 Venous insufficiency (chronic) (peripheral)
CPT/HCPCS: 93970

== ENCOUNTER 2022-09-09 06:10 | Day surgery (SDC) | payer MEDICARE, SELFPAY ==
[2022-09-08 15:30] VITALS: BMI 32.5
--- NOTE | 2022-09-09 06:04 | USCV_ITS ---
Papito Flores Age: 57 Gender: M : 1965 Exam Date: 09/09/2022 06:37 Ordering Phys: Domo Perez MD (Andy) ([email or web address]) Technologist: [place] [facility] [place]: guided venous ablation Findings The greater saphenous vein at the saphenofemoral junction and origin of the inferior epigastric veins were identified and interrogated. These areas were found to be patent with no evidence of thrombosis. Conclusions Patent saphenofemoral junction and inferior epigastric vein. Dr João Kunz MD [facility] (Electronically Signed) Final Date: 10 September 2022 20:43 S
[2022-09-09 06:34] VITALS: BP 146/88; PULSE 68; RESP 18; TEMP 36.4; O2SAT 96
--- NOTE | 2022-09-09 06:38 | PM.OPSURHP ---
Providers/Chief Complaint Admitting Physician: Dr. Perez Primary Care Provider: Angelica Keita MD Chief Complaint: surgery Bilateral lower extremity varicose veins of the reflux History of Present Illness Papito Flores is a 57 year old male whom I originally saw in consultation on July 17 upon referral for bilateral lower extremity varicose vein with increasing symptoms, left much more so than right. He underwent venous duplex study which revealed bilateral substantial reflux, again, with the greatest on the left. Mr. Flores does have early skin changes consistent with CEAP classification C4 a. No history for DVT or major trauma to the lower extremities. Review of Systems Const: Denies: fever(s) or chills Card: Denies: chest pain or palpitations Resp: Denies: dyspnea or productive cough GI: Denies: abdominal pain, nausea or vomiting Musc: Reports: extremity pain (With prolonged standing), extremity swelling and joint pain; Denies: neck pain Neuro: Denies: headache(s), numbness in extremities or frequent falls Endo: Denies: polyuria or polydipsia Eliazar/Lymph: Denies: easy bruising or easy bleeding Medications/Allergies Home Medications Medication Instructions Recorded Confirmed Last Taken Type cetirizine 10 mg capsule (All Day 10 mg PO DAILY 03/15/20 09/08/22 10/16/20 History Allergy (cetirizine)) gabapentin 300 mg capsule 300 mg PO TID PRN pain 30 days #90 12/18/21 09/08/22 Unknown Rx caps blood sugar diagnostic (True #50 ea 01/08/22 07/29/22 Unknown Rx Metrix Glucose Test Strip) budesonide 32 mcg/actuation nasal 2 spray intranasal BID PRN 07/17/22 09/08/22 Unknown History spray seasonal allergies blood sugar diagnostic (Blood #50 ea 09/03/22 Unknown Rx Glucose Test strips) glipizide 10 mg tablet, extended 10 mg PO BID 09/08/22 09/08/22 Unknown History release 24 hr sitagliptin 100 mg tablet (Januvia) 100 mg PO DAILY 09/08/22 09/08/22 Unknown History Allergies Allergy/AdvReac Type Severity Reaction Status Date / Time morphine Allergy Severe muscle Verified 09/08/22 15:27 tremors, convulsions influenza virus vaccine, Allergy ALGY-Anaphy Verified 09/08/22 15:27 specific laxis PFSH PFSH: Medical History Back pain Cervical disc disorder with myelopathy of mid-cervical region COVID-19 Facet arthritis, degenerative, lumbar spine Headache due to injury of head and neck Intervertebral disc disorder of cervical region with myelopathy Intervertebral disc disorder with radiculopathy of lumbar region Intervertebral disc disorder with radiculopathy of lumbosacral region Lumbar stenosis with neurogenic claudication Seasonal allergies Spinal stenosis of lumbar region with radiculopathy Type 2 diabetes mellitus Metformin intolerance. Surgical History H/O hernia repair History of lumbar fusion Previous back surgery 11/1991 L5-S1 decompression. 03/1992 L5-S1 decompression, reexploration. 1998 L5-S1 anterior/posterior fusion fixation Family History Mother Cancer lung cancer Brother Diabetes Father Liver cirrhosis, alcoholic Social History Smoking and tobacco status: never smoked Alcohol intake: never Lives independently: Yes Household members: spouse Housing: House Marital status: service: No Current occupational status: disabled History of recent travel: No Dietary Habits: Caffeine: Yes Vital Signs Vitals Signs: Last Vital Signs Temp 97.6 F 09/09/22 06:34 Pulse 68 09/09/22 06:34 Resp 18 09/09/22 06:34 BP 146/88 09/09/22 06:34 Pulse Ox 96 09/09/22 06:34 O2 Del Method 09/09/22 06:34 Weight: Weight last 48 hrs Weight 220 lb Physical Exam Const: COMMON NORMALS: no acute distress, average body habitus and patient oriented x3 HENMT: COMMON NORMALS: normocephalic, atraumatic, hearing grossly normal bilaterally and external ears normal Eye: COMMON NORMALS: Equal, round and reactive pupils present and EOMs intact bilaterally Neck/C-Spine: COMMON NORMALS: full ROM, no lymphadenopathy and No carotid bruits Chest: COMMONS NORMALS: normal inspection of the chest and normal palpation of entire chest wall Resp: COMMON NORMALS: normal respiratory effort and clear to auscultation bilaterally Cardio: COMMON NORMALS: regular rate, regular rhythm, S1 normal heart sound present and No murmurs present (Cardio) GI: COMMON NORMALS: Normal to inspection, nondistended, normoactive bowel sounds present Extremity: NARRATIVE EXTREMITY EXAM: Skin changes consistent with venous disease. No history for ulcerations or active ulcers. 1+ lower extremity edema. Good distal pulses. CEAP classification C4 a Neuro: COMMON NORMALS: patient oriented x3, moves all extremities, no focal motor deficits, no sensory deficits noted and gait normal A&P Assessment and plan (1) Varicose veins of left lower extremity with pain: Highly symptomatic varicosities of the lower extremities bilaterally left greater than right. Improved symptomatology with external compression. Plan: We have discussed recommendation to consider RF catheter ablation of the greater saphenous vein, less than 80 on the left side to assess therapeutic improvement. Numerous questions were answered. Details and risks of the procedure were carefully and frankly discussed. Risks reviewed include the possibility of , stroke, heart attack, major bleeding, infection, pneumonia, organ failure, failure to benefit, the venous thrombosis requiring need for anticoagulation, prolonged hospital stay, pain after the procedure, need for further procedures, inability to complete the procedure, and possible need for long-term followup. All questions were answered. Appropriate consents have been provided for review and signature. Coding Level of Care Code Acute Endoscope Technician for Harini Sen Diagnoses Varicose veins of left lower extremity with pain I83.812
[2022-09-09] MEDS: lidocaine 1% INJ 20 mL XX (07:20)
[2022-09-09 07:45] VITALS: BP 135/83; PULSE 71; RESP 12; TEMP 36.8; O2SAT 97
--- NOTE | 2022-09-09 07:54 | P.OP_ITS ---
Operative Report Date of procedure: September 09, 2022 Pre-op diagnosis: Preop Diagnosis , asymptomatic varicose vein disease left lower extremity with reflux Post-op diagnosis: same Procedure done: Left greater saphenous vein radiofrequency catheter ablation Pathology: none sent Surgeon: Domo Perez Anesthesia: Local Complications: none Condition: stable Disposition: same day Brief History: Mr. Flores is a 57-year-old gentleman with medihoney symptomatic bilateral lower extremity varicose vein disease, left greater than right, documented severe reflux bilaterally. He was carefully evaluated with an outpatient and presents today for planned RF catheter ablation of left greater saphenous vein. Details of risk of the procedure were carefully and frankly discussed. Appropriate consents have been reviewed and signed. Procedure: The insufficient left greater saphenous vein was verified by ultrasound and diagrammed on the overlying skin. The varicose tributary veins and suitable access sites were identified and mapped. The affected left lower extremity prepped and draped in the usual sterile fashion. The patient was placed in reverse Trendelenburg position. Tumescent was instilled in the skin overlying the access site for local anesthesia. The vein was accessed in the proximal to mid left calf region using ultrasound guidance and the Seldinger technique, a guidewire was introduced through the needle, which was then exchanged over the guidewire for a 7F sheath. The RF catheter was placed on the sterile field, flushed and wiped down, prepared, and connected by a sterile cable. The patient was placed in Trendelenburg position. After RF catheter position was verified by ultrasound, tumescent anesthesia was infiltrated, under ultrasound guidance, precisely into the perivenous compartment along the entire length of vein. After the RF catheter position was again confirmed with ultrasound imaging, and under direct external compression along the length of the heating element, RF energy was applied. The vein was segmentally ablated until the treatment length is completed. Device temperature was maintained at 120 +/- degrees C with an initial power level of 40W dropping to below 20W for each treatment. Total vein length treated 38 cm. Vein diameter ranging from 0.29 up to 1.27 cm. Total cycles of RF 17. Time 5 minutes and 5 seconds. Repeat ultrasound of the left greater saphenous vein was performed, confirming successful treatment. Post procedure, the inferior epigastric vein was noted to be patent. The catheter and sheath were withdrawn and hemostasis established with direct pressure. After assuring hemostasis, the skin incision over the saphenous vein was closed with a bandage and graduated compression stocking was applied from the level of the foot to the most proximal length of the thigh. I did litigation counsel with his at the completion of the procedure.
--- NOTE | 2022-09-09 09:07 | PC.NURSE ---
No orders for patient present. Dr. Jennings made aware. He filled out consent and patient signed.
== END 2022-09-09 08:29 | disposition home or self-care (01) ==
PROVIDERS: PCP Family Medicine; Visit Provider Thoracic Surgery (Cardiothoracic Vascular Surgery)
PROC: (CPT 36475; principal; 2022-09-09 07:00)
DX: I83.92 Asymptomatic varicose veins of left lower extremity (principal); I83.812 Varicose veins of left lower extremity with pain; Z86.16 Personal history of COVID-19; E11.9 Type 2 diabetes mellitus without complications
CPT/HCPCS: 36475; C1887; C1888; J7040

== ENCOUNTER 2022-09-16 10:05 | Outpatient (CLI) | payer MEDICARE, SELFPAY ==
--- NOTE | 2022-09-16 10:15 | USCV_ITS ---
Papito Flores Age: 57 Gender: M : 1965 Exam Date: 09/16/2022 10:22 Ordering Phys: Domo Perez MD (Andy) ([email or web address]) Technologist: BRIJESH Exam Location: [facility] – [place] Indication: S/P LEFT GSV ABLATION HISTORY: S/P LEFT GSV ABLATION PROCEDURES: Venous duplex imaging was performed in only the left lower extremity. The following venous structures were evaluated: common femoral vein, profunda vein, proximal portion of the greater saphenous vein, superficial femoral vein, and the popliteal vein. In addition, the posterior tibial and peroneal trunk were evaluated. Serial compression, augmentation maneuvers, and spectral Doppler flow evaluation were performed. FINDINGS: Left GSV compressible 0.83cm from CFV junction. GSV Non- compressible from Prox to Below Knee at Surgerical site. No evidence of DVT seen in any vessel visualized at this time. Prelim Given to Dr. Perez at 1030am by [facility] Dianelys Dhaliwal CONCLUSIONS No evidence of left lower extremity DVT. S/P left GSV ablation. GSV non compressible proximal to below knee Devin Cobos MD (Electronically Signed) Final Date: 16 September 2022 16:10 S
== END 2022-09-16 10:06 | disposition home or self-care (01) ==
PROVIDERS: PCP Family Medicine; Visit Provider Thoracic Surgery (Cardiothoracic Vascular Surgery)
DX: I83.812 Varicose veins of left lower extremity with pain (principal); Z98.890 Other specified postprocedural states
CPT/HCPCS: 93971

== ENCOUNTER → 2022-09-18 13:56 | Outpatient (BNVA) | payer MEDICARE, SELFPAY | PROVIDERS: PCP Family Medicine; Visit Provider Thoracic Surgery (Cardiothoracic Vascular Surgery) | DX: I83.812 Varicose veins of left lower extremity with pain (principal) | CPT/HCPCS: 99024; 99212 ==

== ENCOUNTER → 2022-12-25 10:29 | Outpatient (BNVA) | payer MEDICARE, SELFPAY | PROVIDERS: PCP Family Medicine; Visit Provider Orthopaedic Surgery | DX: M47.812 Spondylosis without myelopathy or radiculopathy, cervical region (principal) | CPT/HCPCS: 72050; 99214 ==

== ENCOUNTER 2023-01-22 08:14 | Outpatient (CLI) | payer MEDICARE, SELFPAY ==
--- NOTE | 2023-01-22 09:30 | MR_ITS ---
WS: [id number] MRI CERVICAL SPINE NONCONTRAST TECHNIQUE: Sagittal T1, T2 and STIR imaging. Axial T2, gradient, and fiesta imaging. CLINICAL INFORMATION: neck pain, bue numnbess and tinling, dizziness COMPARISON: MRI December 15, 2019 FINDINGS: Straightening of the normal cervical lordosis. Mild disc bulging worse at C5-C6. Cord signal is arlette l. Disc bulging at C5-C6 appears progressed compared to previous. C2-C3: Mild facet arthropathy. Spinal canal and foramen are patent. C3-C4: Mild disc osteophyte complex with tiny shallow central protrusion. Slight effacement of ventra l thecal sac. Moderate RIGHT facet arthropathy with RIGHT facet edema compatible with synovitis. Mod erate RIGHT foraminal narrowing. Mild LEFT foraminal narrowing. Synovitis is new compared to previous . . C4-C5: Mild disc osteophyte complex with endplate ridging. Advanced RIGHT facet arthropathy. Mild to moderate RIGHT bony foraminal narrowing. RIGHT facet synovitis with periarticular edema C5-C6: Disc osteophyte complex with a RIGHT pericentral protrusion. Slight indentation RIGHT ventral cervical cord with mild central canal stenosis. Mild RIGHT foraminal narrowing. LEFT foramen is paten t. Moderate facet arthropathy. C6-C7: Mild disc osteophytic ridging. Tiny shallow central protrusion. Spinal canal is patent. Mild L EFT foraminal narrowing. C7-T1: Mild RIGHT bony foraminal narrowing. Spinal canal and foramen are patent. Visualized brain stem structures: Normal. Prevertebral soft tissues: Normal. MR/MR cervical spin wo con* [id number] IMPRESSION: 1. Progressed RIGHT pericentral disc protrusion at RIGHT C5-C6 with mild centr al canal stenosis and indentation RIGHT ventral cervical cord. 2. New RIGHT facet synovitis C3-C4 with bone marrow and periarticular edema. T his is new from previous. This is likely inflammatory or degenerative. No drain able fluid collections. 3. Moderate to advanced facet arthropathy RIGHT C3-C4 and RIGHT C4-C5. 4. Moderate bony foraminal narrowing RIGHT C3-C4 and [id number] RIGHT C4 -C5
== END 2023-01-22 08:15 | disposition home or self-care (01) ==
PROVIDERS: PCP Family Medicine; Visit Provider Orthopaedic Surgery
DX: M48.02 Spinal stenosis, cervical region (principal); M50.222 Other cervical disc displacement at C5-C6 level; M47.812 Spondylosis without myelopathy or radiculopathy, cervical region
CPT/HCPCS: 72141

== ENCOUNTER → 2023-01-27 08:21 | Outpatient (BNVA) | payer MEDICARE, SELFPAY | PROVIDERS: PCP Family Medicine; Visit Provider Orthopaedic Surgery | DX: M47.22 Other spondylosis with radiculopathy, cervical region (principal); M50.222 Other cervical disc displacement at C5-C6 level; G89.29 Other chronic pain | CPT/HCPCS: 99214 ==

== ENCOUNTER → 2023-02-09 09:49 | Outpatient (BNVA) | payer MEDICARE, SELFPAY | PROVIDERS: PCP Family Medicine; Visit Provider Family Medicine | DX: M48.061 Spinal stenosis, lumbar region without neurogenic claudication (principal); M54.16 Radiculopathy, lumbar region; E11.9 Type 2 diabetes mellitus without complications; R97.20 Elevated prostate specific antigen [PSA]; Z13.220 Encounter for screening for lipoid disorders; Z13.6 Encounter for screening for cardiovascular disorders; I83.812 Varicose veins of left lower extremity with pain; R74.8 Abnormal levels of other serum enzymes; M48.062 Spinal stenosis, lumbar region with neurogenic claudication | CPT/HCPCS: 80053; 80061; 83036; 84153 ==

== ENCOUNTER → 2023-02-12 13:21 | Outpatient (BNVA) | payer MEDICARE, SELFPAY | PROVIDERS: PCP Family Medicine; Visit Provider Thoracic Surgery (Cardiothoracic Vascular Surgery) | DX: I83.891 Varicose veins of right lower extremity with other complications (principal) | CPT/HCPCS: 99212 ==

== ENCOUNTER → 2023-02-18 09:56 | Outpatient (BNVA) | payer MEDICARE, SELFPAY | PROVIDERS: PCP Family Medicine; Visit Provider Anesthesiology Pain Medicine | DX: G89.29 Other chronic pain (principal); M48.061 Spinal stenosis, lumbar region without neurogenic claudication; M54.16 Radiculopathy, lumbar region; M54.2 Cervicalgia | CPT/HCPCS: 99204 ==

== ENCOUNTER → 2023-03-03 13:57 | Outpatient (BNVA) | payer MEDICARE, SELFPAY | PROVIDERS: PCP Family Medicine; Visit Provider Physician Assistant | DX: M48.062 Spinal stenosis, lumbar region with neurogenic claudication (principal); M51.16 Intervertebral disc disorders with radiculopathy, lumbar region; M96.1 Postlaminectomy syndrome, not elsewhere classified; Z98.1 Arthrodesis status; G89.11 Acute pain due to trauma; M54.50 Low back pain, unspecified | CPT/HCPCS: 99213 ==

== ENCOUNTER → 2023-03-03 14:28 | Outpatient (BNVA) | payer MEDICARE, SELFPAY | PROVIDERS: PCP Family Medicine; Visit Provider Physician Assistant | DX: M48.062 Spinal stenosis, lumbar region with neurogenic claudication (principal); M51.16 Intervertebral disc disorders with radiculopathy, lumbar region | CPT/HCPCS: 72100 ==

== ENCOUNTER → 2023-03-10 12:41 | Outpatient (BNVA) | payer MEDICARE, SELFPAY | PROVIDERS: PCP Family Medicine; Visit Provider Anesthesiology Pain Medicine | DX: G89.29 Other chronic pain (principal); M54.12 Radiculopathy, cervical region | CPT/HCPCS: 62321; J1100 ==

== ENCOUNTER 2023-03-14 09:02 | Outpatient (CLI) | payer MEDICARE, SELFPAY ==
--- NOTE | 2023-03-14 09:15 | CT_ITS ---
WS: [id number] CT LUMBAR SPINE TECHNIQUE: Noncontrast CT of the lumbar spine with coronal and sagittal reformatted images. CLINICAL INFORMATION: back pain COMPARISON: CT October 23, 2020 DLP: 714.[address] scans at [facility] use at least one of these dose optimization techniques: automated e xposure control; mA and/or kV adjustment per patient size (includes targeted exams where dose is matc hed to clinical indication); or iterative reconstruction. FINDINGS: Pedicle screw fixation L4-S1. Interbody fusion grafts L4-L5 and L5-S1. Evidence of bony bridging beyo nd the confines of the graft L5-S1. Anterior screw fixation L5-S1. Laminectomy defects L4-L5 dorsal l ateral bone graft material. Interconnecting rods appear intact. No evidence of screw loosening. No high-grade central canal stenosis. L1-L2: Mild annular bulging. Spinal canal and foramen are patent. Mild facet arthropathy. L2-L3: Mild annular bulging. Mild central canal stenosis. Moderate facet arthropathy. Foramen are pat ent. L3-L4: Mild annular bulging with slight effacement of ventral thecal sac. Impingement on the traversi ng L4 nerve roots bilaterally. Moderate facet arthropathy. Foramen are patent. L4-L5: Laminectomy defects. Mild LEFT and no significant RIGHT foraminal narrowing. Spinal canal is p atent. L5-S1: Laminectomy defects. Spinal canal is patent. Foramen are patent. Visualized pelvic bony structures: Normal. Paravertebral soft tissues: Normal. CT/CT lumbar spine wo con* [id number] IMPRESSION: 1. Pedicle screw fixation L4-S1 with anterior fixation screws L5-S1. Laminecto my defects L4 and L5. 2. Interbody fusion grafts L4-L5. 3. No evidence of hardware loosening. Mild central canal stenosis L2-L3 with slight effacement of the ventral thecal sac. Slight narrowing of the subarticular recess.4. 1. Mild narrowing subarticular recess L3-L4. 2. Spinal canal has been decompressed at L4-L5 levels. 3. Overall no significant changes compared to previous.
== END 2023-03-14 09:03 | disposition home or self-care (01) ==
PROVIDERS: PCP Family Medicine; Visit Provider Physician Assistant
DX: M96.1 Postlaminectomy syndrome, not elsewhere classified (principal); Z98.1 Arthrodesis status; M48.061 Spinal stenosis, lumbar region without neurogenic claudication
CPT/HCPCS: 72131; 99213

== ENCOUNTER → 2023-03-18 09:14 | Outpatient (BNVA) | payer MEDICARE, SELFPAY | PROVIDERS: PCP Family Medicine; Visit Provider Anesthesiology Pain Medicine | DX: G89.29 Other chronic pain (principal); M79.18 Myalgia, other site; W18.42XA Slipping, tripping and stumbling without falling due to stepping into hole or opening, initial encounter; M50.020 Cervical disc disorder with myelopathy, mid-cervical region, unspecified level; M48.061 Spinal stenosis, lumbar region without neurogenic claudication; M54.16 Radiculopathy, lumbar region; X58.XXXA Exposure to other specified factors, initial encounter | CPT/HCPCS: 20553; 99214 ==

== ENCOUNTER 2023-03-25 09:07 | Outpatient (CLI) | payer MEDICARE, SELFPAY ==
--- NOTE | 2023-03-25 09:30 | MR_ITS ---
WS: [id number] MRI LUMBAR SPINE NONCONTRAST TECHNIQUE: Sagittal T1, T2 and STIR imaging. Axial T1 and T2 imaging. CLINICAL INFORMATION: lumbar pain COMPARISON: CT March 14, 2023, MRI 2019 FINDINGS: Prior postoperative changes pedicle screw fixation L4-S1. Interbody fusion grafts L4-L5 and L5-S1. An terior screw fixation L5-S1.Laminectomy defects L4-L5 with dorsal lateral bone graft material. L1-L2: Mild annular bulging. Mild facet arthropathy. Spinal canal and foramen are patent. L2-L3: Mild annular bulging with mild central canal stenosis. Slight effacement of ventral thecal sac . Mild facet arthropathy. Mild LEFT and no significant RIGHT foraminal narrowing. Tiny LEFT foraminal protrusion. Mild facet arthropathy. L3-L4: Mild annular bulging with slight effacement of ventral thecal sac. Mild central canal stenosis . Impingement traversing L4 nerve roots bilaterally. Mild facet arthropathy. Mild bilateral foraminal narrowing. L4-L5: Pedicle screw fixation with interbody fusion. Spinal canal and foramen are patent. L5-S1: Anterior screw fixation. Pedicle screw fixation. Mild facet arthropathy. Spinal canal and fora men are patent. Visualized pelvic bony structures: Normal. Paravertebral soft tissues: Normal. MR/MR lumbar spine wo con* [id number] IMPRESSION: 1. Pedicle screw fixation L4-S1 with anterior fixation screws L5-S1. Laminecto my defects L4 and L5. 2. Spinal canal has been decompressed at L4-L5. 3. Mild central canal stenosis L2-L3 with annular bulging and slight narrowing of the subarticular recess bilaterally. 4. Mild narrowing of subarticular recess L3-L4 with mild central canal stenosi s. 5. Mild LEFT L2-L3 and bilateral L3-L4 foraminal narrowing. 6. Mild facet arthropathy L2-L3 and L3-L4.
== END 2023-03-25 09:08 | disposition home or self-care (01) ==
PROVIDERS: PCP Family Medicine; Visit Provider Physician Assistant
DX: M48.061 Spinal stenosis, lumbar region without neurogenic claudication (principal); M47.816 Spondylosis without myelopathy or radiculopathy, lumbar region; G89.11 Acute pain due to trauma; M54.50 Low back pain, unspecified; Z98.1 Arthrodesis status
CPT/HCPCS: 72148; 99213

== ENCOUNTER → 2023-03-26 14:53 | Outpatient (BNVA) | payer MEDICARE, SELFPAY | PROVIDERS: PCP Family Medicine; Visit Provider Orthopaedic Surgery | DX: M54.50 Low back pain, unspecified (principal); G89.11 Acute pain due to trauma | CPT/HCPCS: 99214 ==

== ENCOUNTER → 2023-03-31 14:05 | Outpatient (BNVA) | payer MEDICARE, SELFPAY | PROVIDERS: Visit Provider Anesthesiology Pain Medicine | DX: M46.1 Sacroiliitis, not elsewhere classified (principal); G89.29 Other chronic pain; M54.2 Cervicalgia | CPT/HCPCS: 20610; 27096; 77002; J1030; J3490 ==

== ENCOUNTER → 2023-04-20 09:38 | Outpatient (BNVA) | payer MEDICARE, SELFPAY | PROVIDERS: Visit Provider Anesthesiology Pain Medicine | DX: G89.11 Acute pain due to trauma (principal); G89.29 Other chronic pain; M50.020 Cervical disc disorder with myelopathy, mid-cervical region, unspecified level; M48.061 Spinal stenosis, lumbar region without neurogenic claudication; M54.16 Radiculopathy, lumbar region | CPT/HCPCS: 99214 ==

== ENCOUNTER → 2023-05-04 12:55 | Outpatient (BNVA) | payer MEDICARE, SELFPAY | PROVIDERS: Visit Provider Anesthesiology Pain Medicine | DX: G89.29 Other chronic pain (principal); M47.812 Spondylosis without myelopathy or radiculopathy, cervical region | CPT/HCPCS: 64490; 64491; 64492; J3490 ==

== ENCOUNTER → 2023-05-20 09:16 | Outpatient (BNVA) | payer MEDICARE, SELFPAY | PROVIDERS: Visit Provider Anesthesiology Pain Medicine | DX: G89.29 Other chronic pain (principal); M50.020 Cervical disc disorder with myelopathy, mid-cervical region, unspecified level; M48.061 Spinal stenosis, lumbar region without neurogenic claudication; M54.16 Radiculopathy, lumbar region | CPT/HCPCS: 99214 ==

== ENCOUNTER → 2023-05-26 10:49 | Outpatient (BNVA) | payer MEDICARE, SELFPAY | PROVIDERS: PCP Family Medicine; Visit Provider Family Medicine | DX: E11.9 Type 2 diabetes mellitus without complications (principal); M48.062 Spinal stenosis, lumbar region with neurogenic claudication | CPT/HCPCS: 83036 ==

== ENCOUNTER → 2023-05-28 10:46 | Outpatient (BNVA) | payer MEDICARE, SELFPAY | PROVIDERS: PCP Family Medicine; Visit Provider Thoracic Surgery (Cardiothoracic Vascular Surgery) | DX: I83.891 Varicose veins of right lower extremity with other complications (principal) | CPT/HCPCS: 99212 ==

== ENCOUNTER → 2023-06-25 14:19 | Outpatient (BNVA) | payer MEDICARE, SELFPAY | PROVIDERS: PCP Family Medicine; Visit Provider Orthopaedic Surgery | DX: M47.22 Other spondylosis with radiculopathy, cervical region (principal) | CPT/HCPCS: 72050; 99214 ==

== ENCOUNTER 2023-07-03 08:08 | Outpatient (CLI) | payer MEDICARE, SELFPAY ==
--- NOTE | 2023-07-03 08:00 | CT_ITS ---
WS: [id number] CT chest wo con [id number] HISTORY: lump in clavical chest area, RIGHT side. TECHNIQUE: Axial imaging performed through the thorax. Coronal and sagittal reformats are submitted. [facility] use at least one of these dose optimization techniques: automated exposure control; mA and/or kV adjustment per patient size (includes targeted exams where dose is mat ched to clinical indication); or iterative reconstruction. CONTRAST: None DLP: 430.06 mGy.cm COMPARISON: 11/23/2019 Marker is placed along the upper RIGHT chest at the site of the palpable abnormality. The adjacent so ft tissues are normal. Marker is directly over the sternocleidomastoid muscle inferiorly. There is a small osteophyte from the anterior medial surface of the RIGHT clavicle which is slightly asymmetric to the LEFT clavicular head measuring 9 mm. No adjacent inflammation is identified. Lungs and central airway: Normal expanded lungs. No atelectasis, pneumonia or mass. Benign calcified granuloma LEFT lower lobe. Pleura: Normal. No pleural effusion. Heart and pericardium: Normal size heart with no pericardial effusion. Mediastinum and jacob: No mediastinum or hilar adenopathy. Vessels: Minimal atherosclerosis aorta. No aneurysm. Normal sized pulmonary artery. Chest wall and lower neck: No soft tissue masses. Upper abdomen: Cholelithiasis. Numerous stones in the gallbladder, the largest measures 1.7 cm. No ad jacent inflammation. Few scattered granulomata in the liver and spleen. No adrenal mass. No adrenal m ass. Osseous structures: No destructive process. IMPRESSION: 1. Small, 9 mm osteophyte extends superiorly from the RIGHT clavicular head. New since 2019. This may represent the palpable abnormality as described by the patient. Otherwise no abnormalities are noted in the soft tissues along the inferior RIGHT neck. 2. No pneumonia or pulmonary nodule. 3. Cholelithiasis without acute cholecystitis.
== END 2023-07-03 08:09 | disposition home or self-care (01) ==
PROVIDERS: PCP Family Medicine; Visit Provider Orthopaedic Surgery
DX: M50.020 Cervical disc disorder with myelopathy, mid-cervical region, unspecified level (principal); M25.70 Osteophyte, unspecified joint; K80.20 Calculus of gallbladder without cholecystitis without obstruction
CPT/HCPCS: 71250

== ENCOUNTER → 2023-08-11 08:44 | Outpatient (BNVA) | payer MEDICARE, SELFPAY | PROVIDERS: PCP Family Medicine; Visit Provider Family Medicine | DX: E11.9 Type 2 diabetes mellitus without complications (principal); Z12.5 Encounter for screening for malignant neoplasm of prostate; M47.22 Other spondylosis with radiculopathy, cervical region | CPT/HCPCS: 80053; 83036; G0103 ==

== ENCOUNTER → 2023-08-18 13:19 | Outpatient (BNVA) | payer MEDICARE, SELFPAY | PROVIDERS: PCP Family Medicine; Visit Provider Orthopaedic Surgery | DX: M47.22 Other spondylosis with radiculopathy, cervical region (principal); M47.818 Spondylosis without myelopathy or radiculopathy, sacral and sacrococcygeal region; E11.9 Type 2 diabetes mellitus without complications; Z79.84 Long term (current) use of oral hypoglycemic drugs; M25.59 Pain in other specified joint; S42.013A Anterior displaced fracture of sternal end of unspecified clavicle, initial encounter for closed fracture; X58.XXXA Exposure to other specified factors, initial encounter | CPT/HCPCS: 99214 ==

== ENCOUNTER → 2023-09-08 14:26 | Outpatient (BNVA) | payer MEDICARE, SELFPAY | PROVIDERS: PCP Family Medicine; Referring Provider Orthopaedic Surgery; Visit Provider Thoracic Surgery (Cardiothoracic Vascular Surgery) | DX: M47.22 Other spondylosis with radiculopathy, cervical region (principal) | CPT/HCPCS: 99212 ==

== ENCOUNTER → 2023-09-14 10:06 | Outpatient (BNVA) | payer MEDICARE, SELFPAY | PROVIDERS: PCP Family Medicine; Referring Provider Family Medicine; Visit Provider Family Medicine | DX: E11.9 Type 2 diabetes mellitus without complications (principal) | CPT/HCPCS: 83036 ==

== ENCOUNTER → 2023-09-24 10:57 | Outpatient (BNVA) | payer MEDICARE, SELFPAY | PROVIDERS: PCP Family Medicine; Visit Provider Physician Assistant | DX: R20.2 Paresthesia of skin (principal); M47.22 Other spondylosis with radiculopathy, cervical region; M25.511 Pain in right shoulder; E11.65 Type 2 diabetes mellitus with hyperglycemia | CPT/HCPCS: 99214 ==

== ENCOUNTER → 2023-10-27 08:03 | Outpatient (BNVA) | payer MEDICARE, SELFPAY | PROVIDERS: PCP Family Medicine; Visit Provider Orthopaedic Surgery | DX: G89.29 Other chronic pain; M47.22 Other spondylosis with radiculopathy, cervical region | CPT/HCPCS: 72040; 99214 ==

== ENCOUNTER → 2023-11-11 08:39 | Outpatient (BNVA) | payer MEDICARE, SELFPAY | PROVIDERS: PCP Family Medicine; Visit Provider Family Medicine | DX: E11.9 Type 2 diabetes mellitus without complications (principal); Z79.899 Other long term (current) drug therapy | CPT/HCPCS: 80053; 81000; 83036; 85025 ==

== ENCOUNTER 2023-11-30 10:58 | Day surgery (SDC) | payer MEDICARE, SELFPAY ==
[2023-11-30] VITALS (14 sets, daily range): BP systolic 125–191; BP diastolic 65–106; PULSE 58–82; RESP 14–18; TEMP 36.1–36.6; O2SAT 92–99; BMI 33.7
--- NOTE | 2023-11-30 | XR_ITS ---
WS: [id number] XR cervical spine 3V* [id number] REASON FOR EXAM: VERONICA PICS FINDINGS: Anterior plate and screw fixation C5-C7. Surgical site incompletely demonstrated on the lateral view. IMPRESSION: Limited imaging of the cervical spine with anterior fusion C5-C7 as above.
[2023-11-30 12:01] LABS: Glucose Point of Care 140 mg/dL (70-110)
[2023-11-30] MEDS: sodium chloride 0.9% 1,000 ML 30 ML IV (12:07)
--- NOTE | 2023-11-30 12:24 | ANES.PREANE2 ---
Pre-Anesthetic Assessment Height/Weight: Height 1.75 m Weight 103.873 kg Temp Pulse Resp BP Pulse Ox O2 Del Method 97.9 F 69 18 141/90 96 Room Air 11/30/23 11:38 11/30/23 11:38 11/30/23 11:38 11/30/23 11:38 11/30/23 11:38 11/30/23 11:38 Preop Diagnosis: Cervical spondylosis with radiculopathy Operation Date: 11/30/23 12:50 Proposed Procedures p Anterior Cervical Discectomy & Fusion ACDF w/ Anterior Interbody Fusion w/ Cage w/ Instrumentation w/ Allograft w/ Navigation(Not Applicable) - Jam Ordaz, DO Familial anesthetic complications: None Was Beta Joe taken within 24 hours: N/A Was Clonidine taken within 24 hours: N/A Last intake: Intake Last Liquid Date 11/29/23 Last Liquid Time 20:00 Last Solid Date 11/29/23 Last Solid Time 20:00 Social No alcohol and No tobacco Exam alert, oriented x 3, clear to auscultation bilaterally and regular rate & rhythm Airway Mallampati: Class III Dentition: partials Metabolic Diabetes Mellitus Musc/skel Lower Back Pain Anesthetic Plan ASA status: 3 Anesthesia: General Risk of > 500 ml blood loss (7ml/kg in children): No Medications/Allergies Home Medications Medication Instructions Recorded Confirmed Last Taken Type cetirizine 10 mg capsule (All Day 10 mg PO DAILY 03/15/20 11/30/23 11/29/23 History Allergy (cetirizine)) blood sugar diagnostic (True #50 ea 01/08/22 11/30/23 Unknown Rx Metrix Glucose Test Strip) acetaminophen 325 mg tablet 325 mg PO QID PRN Pain, Mild 02/18/23 11/30/23 11/29/23 History (Tylenol) ibuprofen 200 mg tablet (IBU-200) 200 mg PO Q6H PRN Pain, Mild 02/18/23 11/30/23 2 Weeks Ago History ~11/16/23 glipizide 10 mg tablet, extended 10 mg PO BID 30 days #60 tabs 08/11/23 11/30/23 11/29/23 Rx release 24 hr sitagliptin phosphate 100 mg 100 mg PO DAILY 30 days #30 tabs 08/11/23 11/30/23 11/26/23 Rx tablet (Januvia) blood sugar diagnostic (Blood #100 ea 08/19/23 11/30/23 Unknown Rx Glucose Test strips) pen needle, diabetic 31 gauge x #1,200 ea 08/19/23 11/30/23 Unknown Rx 03/24 (Easy Comfort Pen Young Harris) Bone growth stimulator #1 ea 10/28/23 11/30/23 Unknown Rx gabapentin 300 mg capsule 300 mg PO BID PRN pain 90 days 11/11/23 11/30/23 11/28/23 Rx #180 caps insulin glargine 100 unit/mL (3 20 unit (0.2 mL) SUBCUT DAILY 30 11/11/23 11/30/23 11/29/23 Rx mL) subcutaneous pen (Lantus days #15 mL Solostar U-100 Insulin) Allergies Allergy/AdvReac Type Severity Reaction Status Date / Time morphine Allergy Severe muscle Verified 11/30/23 11:26 tremors, convulsions influenza virus vaccine, Allergy ALGY-Anaphy Verified 11/30/23 11:26 specific laxis Current Medications Generic Name Dose Route Start Last Admin Trade Name Freq PRN Reason Stop Dose Admin Sodium Chloride 1,000 mls @ 30 mls/hr 11/30/23 11:30 11/30/23 12:07 Sodium Chloride 0.9% IV 12/01/23 11:29 30 mls/hr .Q24H KATHERYN Administration PFSH Anesthesia Medical History Chronic neck pain with normal neurological examination Seasonal allergies COVID-19 Type 2 diabetes mellitus Metformin intolerance. Facet arthritis, degenerative, lumbar spine Spinal stenosis of lumbar region with radiculopathy Back pain Cervical disc disorder with myelopathy of mid-cervical region Lumbar stenosis with neurogenic claudication Intervertebral disc disorder with radiculopathy of lumbar region Intervertebral disc disorder with radiculopathy of lumbosacral region Intervertebral disc disorder of cervical region with myelopathy Headache due to injury of head and neck Surgical History History of lumbar fusion H/O hernia repair Previous back surgery 11/1991 L5-S1 decompression. 03/1992 L5-S1 decompression, reexploration. 1998 L5-S1 anterior/posterior fusion fixation Family History Mother Cancer lung cancer Brother Diabetes Father Liver cirrhosis, alcoholic Social History Smoking and tobacco/nicotine status: never used tobacco/nicotine Alcohol intake: never Substance/Drug Use: never Lives independently: Yes Household members: spouse Housing: House Marital status: service: No Current occupational status: disabled Data Anesthesia Cardiac Studies: No Data to Display
--- NOTE | 2023-11-30 13:19 | W.PM.OPSUD ---
Surgery/Procedure H&P Update DATE OF PROCEDURE: November 30, 2023 DATE H&P PERFORMED: 11/24/23 H&P UPDATE INFORMATION: I have reviewed H&P completed within last 30 days, I have examined patient prior to procedure and No changes to prior documentation PREOP DIAGNOSIS: Cervical spondylosis with radiculopathy PLANNED PROCEDURE: Operation Date: 11/30/23 12:50 Proposed Procedures p Anterior Cervical Discectomy & Fusion ACDF w/ Anterior Interbody Fusion w/ Cage w/ Instrumentation w/ Allograft w/ Navigation(Not Applicable) - Jam Ordaz DO
[2023-11-30] MEDS: ceFAZolin 2,000 MG in sodium chloride 0.9% (plus) 50 ML 100 MG IV (13:54)
[2023-11-30] MEDS: lidocaine-epi 2% 20 mL INJ INJECTION (14:30)
[2023-11-30] MEDS: thrombin 5,000 unit SDV 5000 UNIT XX (15:03)
--- NOTE | 2023-11-30 15:39 | PM.OP ---
Operative Report Date of procedure: November 30, 2023 Pre-op diagnosis: Cervical spondylosis with radiculopathy Post-op diagnosis: same Procedure done: 1. Anterior diskectomy C5/6 2. Anterior discectomy C6/7 3. Insertion of cage C5/6 4. Insertion of Cage C6/7 5. Instrumentation with anterior plate from C5-C7 6. Use of allograft Surgeon: Jam Ordaz DO Estimated blood loss (mL): 20 Procedure: 1. Anterior diskectomy C5/6 2. Anterior discectomy C6/7 3. Insertion of cage C5/6 4. Insertion of Cage C6/7 5. Instrumentation with anterior plate from C5-C7 6. Use of allograft The patient was taken to the operating room, where he underwent general endotracheal anesthesia without complications. He was then positioned supine on the operating table, and all areas of impingement were well padded. The arms were carefully padded and tucked at his sides. A roll was placed between the shoulder blades.. An x-ray was done to determine the appropriate level for the skin incision. The entire neck was then sterilely prepped and draped in the usual fashion. Neuromonitoring was attached prior to prepping. A transverse skin incision was made and carried down to the platysma muscle. This was then split in line with its fibers. Blunt dissection was carried down medial to the carotid sheath and lateral to the trachea and esophagus until the anterior cervical spine was visualized. A needle was placed into a disc and an x-ray was done to determine its location. The longus colli muscles were then elevated bilaterally with the electrocautery unit. Self-retaining retractors were placed deep to the longus colli muscle. Attention was brought to the C5-6 level that was confirmed on x-ray. A caspar pin was placed into the C5 vertebrae and the C6 vertebrae. The disk space was then distracted. The microscope was then brought in. A radical anterior discectomies were performed at C5/6. This included complete removal of the anterior annulus, nucleus, and posterior annulus. The posterior longitudinal ligament was removed as were the posterior osteophytes. Foraminotomies were then accomplished bilaterally. This was done using a high speed megan, kerrison rongeurs and curretes Once all of this was accomplished, the curved currette was used to check for any residual compression. The central canal was wide open as were the foramen. A high-speed bur was used to remove the cartilaginous endplates above and below the interspace. Bleeding cancellous bone was exposed. The disc space were measured and appropriate size cage were placed sterilely onto the field. Allograft graft was packed into the cages. The cage was then placed and there was good juxtaposition against the bleeding decorticated surfaces and good distraction of each interspace. Attention was brought to the next interspace. Attention was brought to the C6-7 level that was confirmed on x-ray. A caspar pin was placed into the C6 vertebrae and the C7 vertebrae. The disk space was then distracted. The microscope was then brought in. A radical anterior discectomies were performed at C6/7. This included complete removal of the anterior annulus, nucleus, and posterior annulus. The posterior longitudinal ligament was removed as were the posterior osteophytes. Foraminotomies were then accomplished bilaterally. This was done using a high speed megan, kerrison rongeurs and curretes Once all of this was accomplished, the curved currette was used to check for any residual compression. The central canal was wide open as were the foramen. A high-speed bur was used to remove the cartilaginous endplates above and below the interspace. Bleeding cancellous bone was exposed. The disc space were measured and appropriate size cage were placed sterilely onto the field. Allograft graft was packed into the cages. The cage was then placed and there was good juxtaposition against the bleeding decorticated surfaces and good distraction of each interspace The [place] pins were removed. Bone wax was used to prevent any bleeding from occurring at the pin sites. The appropriate size anterior cervical locking plate was chosen and bent into gentle lordosis. Two screws were then placed into each of the vertebral bodies at C5, C6 and C7. There was excellent purchase. A final x-ray was done confirming good position of the hardware and Cages. The locking screws were then applied, also with excellent purchase. Following a final copious irrigation, there was good hemostasis and no dural leaks. The carotid pulse was strong. The wounds were then closed in layers using 2-0 Vicryl suture for the platysma muscle, 2-0 Vicryl suture for the subcutaneous tissue, and 4-0 monocryl suture in a subcuticular skin closure. Glue was placed followed by application of a sterile dressing. The drain was hooked to bulb suction. A soft collar was applied. The patient was then carefully returned to the supine position on his hospital bed where he was reversed and extubated and taken to the recovery room having tolerated the procedure well.
[2023-11-30] MEDS: fentaNYL 50 mcg/mL INJ 2mL IVP (16:18)
[2023-11-30] MEDS: HYDROcodone-acetaminophen 5-325 mg Tablet 1 TAB PO ×2 (16:47→17:05)
--- NOTE | 2023-11-30 18:28 | ANE.PACU2 ---
Inpatient post-anesthesia follow up: Airway intact: Yes Vital signs: Temperature 98 F Pulse Rate 80 Respiratory Rate 18 Blood Pressure 181/102 Pulse Oximetry 95 Oxygen Delivery Me thod Room Air Oxygen Flow Rate 3 Fraction of Inspir ed Oxygen Hydration adequate: Yes Nausea and vomiting: No Pain level: 1 Mental status: Baseline
== END 2023-11-30 18:00 | disposition home or self-care (01) ==
PROVIDERS: PCP Family Medicine; Visit Provider Orthopaedic Surgery
PROC: 0RB30ZZ Excision of Cervical Vertebral Disc, Open Approach (ICD-10-PCS; CPT 22551; principal; 2023-11-30 12:40)
DX: M47.22 Other spondylosis with radiculopathy, cervical region (principal); E11.9 Type 2 diabetes mellitus without complications; Z79.4 Long term (current) use of insulin; Z86.16 Personal history of COVID-19
CPT/HCPCS: 20930; 22551; 22552; 22845; 22853 ×2; 36416; 72040; 76000; 82962; C1713; C1763; C9359; J0690; J1100; J2405; J2704; J2710; J3010; J3490; J7030

== ENCOUNTER → 2023-12-18 07:46 | Outpatient (BNVA) | payer MEDICARE, SELFPAY | PROVIDERS: PCP Family Medicine; Visit Provider Orthopaedic Surgery | DX: Z98.1 Arthrodesis status (principal); Z47.89 Encounter for other orthopedic aftercare | CPT/HCPCS: 99024 ==

== ENCOUNTER → 2024-01-01 13:26 | Outpatient (BNVA) | payer MEDICARE, SELFPAY | PROVIDERS: PCP Family Medicine; Visit Provider Orthopaedic Surgery | DX: Z47.89 Encounter for other orthopedic aftercare (principal); Z98.1 Arthrodesis status | CPT/HCPCS: 99024 ==

== ENCOUNTER → 2024-02-11 08:15 | Outpatient (BNVA) | payer MEDICARE, SELFPAY | PROVIDERS: PCP Family Medicine; Visit Provider Orthopaedic Surgery | DX: Z98.1 Arthrodesis status (principal) | CPT/HCPCS: 72040; 99024 ==

== ENCOUNTER → 2024-03-07 08:34 | Outpatient (BNVA) | payer MEDICARE, SELFPAY | PROVIDERS: PCP Family Medicine; Visit Provider Family Medicine | DX: E11.9 Type 2 diabetes mellitus without complications (principal); R97.20 Elevated prostate specific antigen [PSA]; Z13.220 Encounter for screening for lipoid disorders; Z13.6 Encounter for screening for cardiovascular disorders; R74.8 Abnormal levels of other serum enzymes; E87.5 Hyperkalemia | CPT/HCPCS: 80053; 80061; 83036; 84153 ==

== ENCOUNTER → 2024-05-17 07:58 | Outpatient (BNVA) | payer MEDICARE, SELFPAY | PROVIDERS: PCP Family Medicine; Visit Provider Orthopaedic Surgery | DX: Z98.1 Arthrodesis status (principal) | CPT/HCPCS: 72040; 99213 ==

== ENCOUNTER 2024-05-28 06:00 | Outpatient (CLI) | payer MEDICARE, SELFPAY | END 2024-05-28 06:01 | disposition home or self-care (01) | LOC: RAD 07-19 15:12 | PROVIDERS: PCP Family Medicine; Visit Provider Family Medicine | DX: E11.9 Type 2 diabetes mellitus without complications (principal); R97.20 Elevated prostate specific antigen [PSA]; Z12.5 Encounter for screening for malignant neoplasm of prostate; R10.9 Unspecified abdominal pain | CPT/HCPCS: 80053; 81000; 83036; 84153; 87086 ==

== ENCOUNTER → 2024-06-29 14:04 | Outpatient (BNVA) | payer MEDICARE, SELFPAY | PROVIDERS: PCP Family Medicine; Referring Provider Family Medicine; Visit Provider Family Medicine | DX: E87.5 Hyperkalemia (principal) | CPT/HCPCS: 80048 ==

== ENCOUNTER → 2024-07-21 14:08 | Outpatient (BNVA) | payer MEDICARE, SELFPAY | PROVIDERS: PCP Family Medicine; Visit Provider Orthopaedic Surgery | DX: Z98.1 Arthrodesis status (principal); M54.9 Dorsalgia, unspecified | CPT/HCPCS: 72040; 72110; 99214 ==

== ENCOUNTER 2024-07-29 11:18 | Outpatient (CLI) | payer MEDICARE, SELFPAY ==
--- NOTE | 2024-07-29 11:45 | MR_ITS ---
WS: [id number] MRI CERVICAL SPINE NONCONTRAST TECHNIQUE: Sagittal T1, T2 and STIR imaging. Axial T2, gradient, and fiesta imaging. CLINICAL INFORMATION: Neck Pain COMPARISON: MRI 01/22/2023 FINDINGS: Straightening the normal cervical lordosis. Postoperative changes ACDF C5-C7 new from previous. C2-C3: Mild facet arthropathy. Spinal canal and foramen are patent. C3-C4: Mild disc bulging with slight effacement of the ventral thecal sac. Moderate facet arthropathy . Mild RIGHT and no significant LEFT foraminal narrowing. C4-C5: No significant disc bulging. Mild facet arthropathy. Mild LEFT foraminal narrowing. C5-C6: Postoperative changes ACDF. Mild facet arthropathy. Spinal canal and foramen are patent. C6-C7: Postoperative changes ACDF. Mild facet arthropathy. Spinal canal is patent. Mild LEFT foramina l narrowing. C7-T1: Mild LEFT and no significant RIGHT foraminal narrowing. Spinal canal is patent. Visualized brain stem structures: Normal. Prevertebral soft tissues: Normal. MR/MR cervical spin wo con* [id number] IMPRESSION: 1. Straightening of the normal cervical lordosis. Postoperative changes ACDF C 5-C7 are new compared to previous. 2. Mild disc osteophyte complexes C3-C4 and C4-C5. No significant central elizabet l stenosis. 3. Mild bony foraminal narrowing RIGHT C3-C4, LEFT C4-C5, LEFT C6-C7, and LEFT C7-T1. 4. Moderate facet arthropathy C3-C4 and C4-C5.
== END 2024-07-29 11:19 | disposition home or self-care (01) ==
LOC: RAD 11:18
PROVIDERS: PCP Family Medicine; Visit Provider Orthopaedic Surgery
DX: M47.892 Other spondylosis, cervical region (principal); M43.22 Fusion of spine, cervical region
CPT/HCPCS: 72141

== ENCOUNTER 2024-08-19 07:08 | Outpatient (CLI) | payer MEDICARE, SELFPAY ==
--- NOTE | 2024-08-19 07:15 | MR_ITS ---
WS: [id number] MRI LUMBAR SPINE NONCONTRAST TECHNIQUE: Sagittal T1, T2 and STIR imaging. Axial T1 and T2 imaging. CLINICAL INFORMATION: Back pain COMPARISON: MRI 2022 FINDINGS: Mild lumbar curve. No acute compression. Pedicle screw fixation L4-S1. Anterior screw fixation L5-S1. Interbody fusion grafts L4-L5 and L5-S1. L1-L2: Mild annular bulging. Mild facet arthropathy. Spinal canal and foramen are patent. L2-L3: Mild annular bulging. Mild facet arthropathy. Mild central canal stenosis. Foramen are patent. L3-L4: Mild annular bulging. Mild central canal stenosis. Slight effacement of the ventral thecal sac . Moderate facet arthropathy. Foramen are patent. Laminectomy defects. L4-L5: Postoperative changes. Spinal canal and foramen are patent. L5-S1: Postoperative changes. Spinal canal and foramen are patent. Laminectomy defects. Visualized pelvic bony structures: Normal. Paravertebral soft tissues: Normal. MR/MR lumbar spine wo con* [id number] IMPRESSION: Overall no significant changes compared to previous 1. Mild lumbar curve. No acute compression. 2. Prior postoperative changes stable compared to previous. 3. Spinal canal and foramen are patent at the fusion levels with laminectomy d efects. 4. Mild central canal stenosis L2-L3 and L3-L4 unchanged.
== END 2024-08-19 07:09 | disposition home or self-care (01) ==
PROVIDERS: PCP Family Medicine; Visit Provider Orthopaedic Surgery
DX: M47.896 Other spondylosis, lumbar region (principal); M43.26 Fusion of spine, lumbar region
CPT/HCPCS: 72148

== ENCOUNTER → 2024-08-29 09:15 | Outpatient (BNVA) | payer MEDICARE, SELFPAY | PROVIDERS: PCP Family Medicine; Visit Provider Family Medicine | DX: E11.9 Type 2 diabetes mellitus without complications (principal); M25.50 Pain in unspecified joint; R97.20 Elevated prostate specific antigen [PSA] | CPT/HCPCS: 80053; 83036; 84153; 85651; 86038; 86140 ==

== ENCOUNTER → 2024-09-01 14:26 | Outpatient (BNVA) | payer MEDICARE, SELFPAY | PROVIDERS: PCP Family Medicine; Visit Provider Orthopaedic Surgery | DX: Z09 Encounter for follow-up examination after completed treatment for conditions other than malignant neoplasm | CPT/HCPCS: 99214 ==

== ENCOUNTER → 2024-11-22 07:28 | Outpatient (BNVA) | payer MEDICARE, SELFPAY | PROVIDERS: PCP Family Medicine; Visit Provider Anesthesiology Pain Medicine | DX: M48.061 Spinal stenosis, lumbar region without neurogenic claudication; M54.16 Radiculopathy, lumbar region; M50.021 Cervical disc disorder at C4-C5 level with myelopathy; G89.29 Other chronic pain | CPT/HCPCS: 99214 ==

== ENCOUNTER → 2024-11-30 14:54 | Outpatient (BNVA) | payer MEDICARE, SELFPAY | PROVIDERS: PCP Family Medicine; Visit Provider Anesthesiology Pain Medicine | DX: M79.18 Myalgia, other site (principal); M48.061 Spinal stenosis, lumbar region without neurogenic claudication; M54.16 Radiculopathy, lumbar region | CPT/HCPCS: 20553; 99213; J1010; J3490 ==

== ENCOUNTER → 2024-12-14 09:10 | Outpatient (BNVA) | payer MEDICARE, SELFPAY | PROVIDERS: PCP Family Medicine; Visit Provider Family Medicine | DX: E11.9 Type 2 diabetes mellitus without complications (principal) | CPT/HCPCS: 80048; 83036 ==

== ENCOUNTER → 2025-01-02 10:44 | Outpatient (BNVA) | payer MEDICARE, SELFPAY | PROVIDERS: PCP Family Medicine; Visit Provider Anesthesiology Pain Medicine | DX: M54.16 Radiculopathy, lumbar region (principal); M48.061 Spinal stenosis, lumbar region without neurogenic claudication; G89.11 Acute pain due to trauma; M54.2 Cervicalgia; G89.29 Other chronic pain | CPT/HCPCS: 99214 ==

== ENCOUNTER → 2025-01-06 08:39 | Outpatient (BNVA) | payer MEDICARE, SELFPAY | PROVIDERS: PCP Family Medicine; Referring Provider Family Medicine; Visit Provider Student in an Organized Health Care Education/Training Program | DX: R03.0 Elevated blood-pressure reading, without diagnosis of hypertension (principal); Z12.11 Encounter for screening for malignant neoplasm of colon | CPT/HCPCS: 99204 ==

== ENCOUNTER → 2025-01-10 13:37 | Outpatient (BNVA) | payer MEDICARE, SELFPAY | PROVIDERS: PCP Family Medicine; Visit Provider Anesthesiology Pain Medicine | DX: M47.812 Spondylosis without myelopathy or radiculopathy, cervical region (principal); G89.29 Other chronic pain; E11.9 Type 2 diabetes mellitus without complications; Z01.818 Encounter for other preprocedural examination | CPT/HCPCS: 36416; 64490; 64491; 82962; J1010; J3490 ==

== ENCOUNTER 2025-01-31 06:23 | Day surgery (SDC) | payer MEDICARE, SELFPAY ==
[2025-01-31 06:36] VITALS: BP 127/71; PULSE 73; RESP 17; TEMP 36.6; O2SAT 96
[2025-01-31 06:37] VITALS: BMI 31.7
[2025-01-31] MEDS: sodium chloride 0.9% 500 ML 15 ML IV (06:48)
[2025-01-31 06:49] LABS: Glucose Point of Care 99 mg/dL (70-110)
--- NOTE | 2025-01-31 07:04 | W.PM.OPSUD ---
Surgery/Procedure H&P Update DATE OF PROCEDURE: January 31, 2025 DATE H&P PERFORMED: 01/06/25 H&P UPDATE INFORMATION: I have reviewed H&P completed within last 30 days, I have examined patient prior to procedure and No changes to prior documentation PLANNED PROCEDURE: Operation Date: 01/31/25 07:30 Proposed Procedures p EGD [id number] G0105 Z12.11 R10.13(Not Applicable) - Deep Dickinson MD s Colonoscopy(Not Applicable) - Deep Dickinson MD
--- NOTE | 2025-01-31 07:25 | ANES.PREANE2 ---
Pre-Anesthetic Assessment Height/Weight: Height 5 ft 9 in Weight 215 lb Temp Pulse Resp BP Pulse Ox O2 Del Method 97.9 F 73 17 127/71 96 Room Air 01/31/25 06:36 01/31/25 06:36 01/31/25 06:36 01/31/25 06:36 01/31/25 06:36 01/31/25 06:36 Preop Diagnosis: Screening colonoscopy Operation Date: 01/31/25 07:30 Proposed Procedures p EGD [id number] G0105 Z12.11 R10.13(Not Applicable) - Deep Dickinson MD s Colonoscopy(Not Applicable) - Deep Dickinson MD Was Beta Joe taken within 24 hours: N/A Was Clonidine taken within 24 hours: N/A Last intake: Intake Last Liquid Date 01/30/25 Last Liquid Time 22:30 Last Solid Date 01/29/25 Last Solid Time 20:00 Social No alcohol and No tobacco Exam alert, oriented x 3, clear to auscultation bilaterally and regular rate & rhythm Airway Submandibular: within normal limits Cervical ROM: within normal limits Mallampati: Class II Dentition: partials and full Anesthetic Plan ASA status: 2 Anesthesia: MAC Other: No prior issues with anesthesia Completed bowel prep Denies any pulmonary or cardiac issues History of type 2 diabetes, on semaglutide. Last taken 01/21/2025. BS 99 S/p cervical fusion. Good mobility and neck extension EKG showing sinus rhythm Plan for MAC anesthesia Medications/Allergies Home Medications ?Medication ?Instructions ?Recorded ?Confirmed ?Last Taken ?Type cetirizine 10 mg capsule (All Day 10 mg PO DAILY 03/15/20 01/31/25 01/30/25 History Allergy (cetirizine)) acetaminophen 325 mg tablet 325 mg PO QID PRN Pain, Mild 02/18/23 01/25/25 01/28/25 History (Tylenol) ibuprofen 200 mg tablet (IBU-200) 200 mg PO Q6H PRN Pain, Mild 02/18/23 01/25/25 01/29/25 History pen needle, diabetic 31 gauge x #1,200 ea 08/19/23 01/10/25 Unknown Rx 5/16 (Easy Comfort Pen [place]) Bone growth stimulator #1 ea 10/28/23 01/10/25 Unknown Rx pen needle, diabetic 31 gauge x #100 ea 12/14/23 01/10/25 Unknown Rx /16 (Sure Comfort Pen Needle) baclofen 10 mg tablet 10 mg PO BID PRN muscle spasm #30 08/29/24 01/25/25 01/23/25 Rx tabs gabapentin 300 mg capsule 300 mg PO BID PRN pain 90 days 08/29/24 01/25/25 01/27/25 Rx #180 caps multivitamin 1 tab PO DAILY 01/02/25 01/31/25 01/30/25 History blood sugar diagnostic (True #100 ea 01/19/25 Unknown Rx Metrix Glucose Test Strip) albuterol sulfate 90 mcg/actuation 2 puff inhalation Q6H PRN 01/25/25 01/25/25 Unknown History aerosol inhaler Shortness Of Breath cranberry 1 tab PO DAILY 01/25/25 01/25/25 01/27/25 History glipizide 10 mg tablet, extended 10 mg PO BID 01/25/25 01/31/25 01/30/25 History release 24 hr semaglutide 2 mg/dose (8 mg/3 mL) 2 mg SUBCUT .weekly 01/25/25 01/25/25 01/21/25 History subcutaneous pen injector (Ozempic) Allergies Allergy/AdvReac Type Severity Reaction Status Date / Time morphine Allergy Severe muscle Verified 01/31/25 06:41 tremors, convulsions influenza virus vaccine, Allergy ALGY-Anaphy Verified 01/31/25 06:41 specific laxis Current Medications Generic Name Dose Route Start Last Admin Trade Name Freq PRN Reason Stop Dose Admin Sodium Chloride 500 mls @ 15 mls/hr 01/31/25 06:25 01/31/25 06:48 Sodium Chloride 0.9% IV 02/01/25 06:24 15 mls/hr .Q24H PRN Administration COLONOSCOPY FLUIDS PFSH Anesthesia Medical History Chronic neck pain with normal neurological examination Seasonal allergies COVID-19 Type 2 diabetes mellitus Metformin intolerance. Facet arthritis, degenerative, lumbar spine Spinal stenosis of lumbar region with radiculopathy Back pain Cervical disc disorder with myelopathy of mid-cervical region Lumbar stenosis with neurogenic claudication Intervertebral disc disorder with radiculopathy of lumbar region Intervertebral disc disorder with radiculopathy of lumbosacral region Intervertebral disc disorder of cervical region with myelopathy Headache due to injury of head and neck Surgical History History of lumbar fusion H/O hernia repair Previous back surgery 11/1991 L5-S1 decompression. 03/1992 L5-S1 decompression, reexploration. 1998 L5-S1 anterior/posterior fusion fixation Family History Mother Cancer lung cancer Brother Diabetes Father Liver cirrhosis, alcoholic Social History Smoking and tobacco/nicotine status: never used tobacco/nicotine Alcohol intake: never Substance/Drug Use: never Lives independently: Yes Household members: spouse Housing: House Marital status: service: No Current occupational status: disabled Data Anesthesia Cardiac Studies: No Data to Display
[2025-01-31 08:17] VITALS: BP 110/73; PULSE 84; RESP 17; TEMP 36.3; O2SAT 96
--- NOTE | 2025-01-31 08:55 | ANE.PACU2 ---
Inpatient post-anesthesia follow up: Airway intact: Yes Vital signs: Temperature 97.3 F Pulse Rate 84 Respiratory Rate 17 Blood Pressure 110/73 Pulse Oximetry 96 Oxygen Delivery Me thod Room Air Oxygen Flow Rate Fraction of Inspir ed Oxygen Hydration adequate: Yes Nausea and vomiting: No Pain level: 1 Mental status: Baseline
== END 2025-01-31 08:55 | disposition home or self-care (01) ==
PROVIDERS: PCP Family Medicine; Visit Provider Student in an Organized Health Care Education/Training Program
PROC: 0DJ08ZZ Inspection of Upper Intestinal Tract, Via Natural or Artificial Opening Endoscopic (ICD-10-PCS; principal; 2025-01-31 07:30)
PROC: 0DJD8ZZ Inspection of Lower Intestinal Tract, Via Natural or Artificial Opening Endoscopic (ICD-10-PCS; CPT 45378; 2025-01-31 07:30)
DX: Z12.11 Encounter for screening for malignant neoplasm of colon (principal); E11.9 Type 2 diabetes mellitus without complications; K29.50 Unspecified chronic gastritis without bleeding; Z79.899 Other long term (current) drug therapy; Z79.85 Long-term (current) use of injectable non-insulin antidiabetic drugs; Z95.5 Presence of coronary angioplasty implant and graft; Z88.5 Allergy status to narcotic agent; D12.5 Benign neoplasm of sigmoid colon
CPT/HCPCS: 36416; 43239; 45385; 82962; 88305; 88342; J2704; J7040

== ENCOUNTER 2025-02-04 11:19 | Emergency (ER) | payer MEDICARE, SELFPAY ==
[2025-02-04 11:47] VITALS: BP 157/94; PULSE 76; RESP 18; TEMP 36.6; O2SAT 96; BMI 31.7
--- NOTE | 2025-02-04 11:56 | XRR_ITS ---
PROCEDURE INFORMATION: Exam: XR Complete Acute Abdomen Series Including Chest Exam date and time: 02/04/2025 12:12 PM Age: 59 years old Clinical indication: Abdominal tenderness and other: Bloody stool(x2) in last 3 days; Prior surgery; Surgery date: 3-7 days post-operative; Surgery type: Colonoscopy and polypectomy. Also, lumbar fusion unknown number of years ago, cervical fusion 1 year ago; Colonoscopy/polypectomy 4 days ago, bloody stool last night and 3 days ago; Additional info: Lower gi bleed, status post colonic polypectomy TECHNIQUE: Imaging protocol: Radiologic exam. Complete acute abdomen series, including 2 or more views of the abdomen and a single view chest. COMPARISON: CT chest con [id number] 07/03/2023 8:54 AM FINDINGS: Lungs: Normal. No consolidation. Pleural spaces: Normal. No pleural effusions. No pneumothorax. Heart/Mediastinum: Normal. No cardiomegaly. Gastrointestinal tract: [id number] fecal burden. No bowel dilation. Intraperitoneal space: There are 2 similar prominent laminated gallstones. No free air. Bones/joints: No acute findings. Soft tissues: Normal. XR/XR acute abdomen series [id number] IMPRESSION: No acute findings. Moderate to large fecal burden
[2025-02-04 12:20] LABS: Basophils # 0.1 10^3/uL (0.0-0.1); Basophils % 1.2 %; Eosinophils # 0.3 10^3/uL (0.0-0.8); Hematocrit 46.6 % (37-53); Lymphocytes # 2.9 10^3/uL (0.8-4.8); Lymphocytes % 37.4 %; Mean Corpuscular HGB Conc 33.7 g/dL (30-55); Mean Corpuscular Hemoglobin 29.7 pg (27-33); Mean Corpuscular Volume 88.1 fl (82-101); Mean Platelet Volume 9.4 fL (7.4-10.4); Monocytes # 0.5 10^3/uL (0.2-0.9); Monocytes % 6.1 %; Neutrophils # 3.93 10^3/uL (1.8-7.7); Nucleated Red Blood Cells % 0 %; Platelet Count 287 10^3/cmm (157-399); Red Blood Count 5.29 10^6/uL (3.85-5.65); Red Cell Distribution Width 12.8 % (12.1-15.1)
[2025-02-04 12:49] LABS: Alanine Aminotransferase 54 U/L (0-41); Albumin Level 4.3 g/dL (3.5-5.2); Alkaline Phosphatase 94 U/L (40-130); Anion Gap 13.7 (5-19); Aspartate Amino Transferase 39 U/L (0-40); Blood Urea Nitrogen 13 mg/dL (8-23); Calcium 9.2 mg/dL (8.5-10.5); Carbon Dioxide 27 mmol/L (22-29); Chloride 104 mmol/L (98-107); Globulin 3.3 g/dL (1.3-4.6); Glomerular Filtration Rate 98.3 mL/min (90-130); Glucose 122 mg/dL (65-115); Osmolality Calculated 291 mOsm/kg (285-295); Potassium 4.7 mmol/L (3.5-5.1); Sodium 140 mmol/L (136-145); Total Bilirubin 0.5 mg/dL (0.15-1.2); Total Protein 7.6 g/dL (6.6-8.7)
[2025-02-04 13:42] VITALS: PULSE 75; O2SAT 98
--- NOTE | 2025-02-04 14:10 | W.ED.GIBLEED ---
HPI - GI Bleed General: Chief complaint: GI Bleed Stated complaint: bleeding from previous colonoscopy Time Seen by Provider: 02/04/25 11:42 History of Present Illness: This patient is a 59-year-old white male who presents to the emergency department with blood in his stool. Patient states he underwent upper GI and lower GI on Thursday here by one of the surgeons. States he had a polyp removed from his colon. He noticed some blood in his stool night. He had another bloody bowel movement on Thursday and another 1 this morning. He was told to come into the emergency department for evaluation. He is not feeling lightheaded. No chest pain or shortness of breath. Related Data Home Medications ?Medication ?Instructions ?Recorded ?Confirmed cetirizine 10 mg capsule (All Day 10 mg PO DAILY 03/15/20 02/04/25 Allergy (cetirizine)) acetaminophen 325 mg tablet 325 mg PO QID PRN Pain, Mild 02/18/23 02/04/25 (Tylenol) ibuprofen 200 mg tablet (IBU-200) 200 mg PO Q6H PRN Pain, Mild 02/18/23 02/04/25 multivitamin 1 tab PO DAILY 01/02/25 02/04/25 glipizide 10 mg tablet, extended 10 mg PO BID 01/25/25 02/04/25 release 24 hr semaglutide 2 mg/dose (8 mg/3 mL) 2 mg SUBCUT Q7D 01/25/25 02/04/25 subcutaneous pen injector (Ozempic) cranberry extract 500 mg capsule 500 mg PO BID 02/04/25 02/04/25 Previous Rx's ?Medication ?Instructions ?Recorded pen needle, diabetic 31 gauge x #1,200 ea 08/19/2316 (Easy Comfort Pen [place]) Bone growth stimulator #1 ea 10/28/23 pen needle, diabetic 31 gauge x #100 ea 12/14/2303/24 (Sure Comfort Pen Needle) baclofen 10 mg tablet 10 mg PO BID PRN muscle spasm #30 08/29/24 tabs gabapentin 300 mg capsule 300 mg PO BID PRN pain 90 days 08/29/24 #180 caps blood sugar diagnostic (True #100 ea 01/19/25 Metrix Glucose Test Strip) Allergies Allergy/AdvReac Type Severity Reaction Status Date / Time morphine Allergy Severe muscle Verified 01/31/25 06:41 tremors, convulsions influenza virus vaccine, Allergy ALGY-Anaphy Verified 01/31/25 06:41 specific laxis Review of Systems General: Reports: 10 or more systems reviewed and unremarkable except in HPI and below GI: Reports: hematochezia PFSH ED PFSH: Medical History Chronic neck pain with normal neurological examination Seasonal allergies COVID-19 Type 2 diabetes mellitus Metformin intolerance. Facet arthritis, degenerative, lumbar spine Spinal stenosis of lumbar region with radiculopathy Back pain Cervical disc disorder with myelopathy of mid-cervical region Lumbar stenosis with neurogenic claudication Intervertebral disc disorder with radiculopathy of lumbar region Intervertebral disc disorder with radiculopathy of lumbosacral region Intervertebral disc disorder of cervical region with myelopathy Headache due to injury of head and neck Surgical History History of lumbar fusion H/O hernia repair Previous back surgery 11/1991 L5-S1 decompression. 03/1992 L5-S1 decompression, reexploration. 1998 L5-S1 anterior/posterior fusion fixation Family History Mother Cancer lung cancer Brother Diabetes Father Liver cirrhosis, alcoholic Social History Smoking and tobacco/nicotine status: never used tobacco/nicotine Alcohol intake: never Substance/Drug Use: never Lives independently: Yes Household members: spouse Housing: House Marital status: service: No Current occupational status: disabled Physical Exam Const: COMMON NORMALS: no acute distress, patient oriented x3 and no limitations GENERAL APPEARANCE: cooperative and comfortable HENMT: COMMON NORMALS: normocephalic, atraumatic, Normal nasal mucous membranes and turbinates present, moist oral mucous membranes and oropharynx normal HEAD & SCALP: normal to inspection, normocephalic and atraumatic FACE & SINUS: normal facial exam NOSE: Normal nasal mucous membranes and turbinates present Eye: COMMON NORMALS: Equal, round and reactive pupils present, EOMs intact bilaterally and conjunctivae normal GENERAL EYE: appearance normal, both eyes and all related structures CONJUNCTIVA: Yes conjunctivae normal PUPIL: Yes Equal, round and reactive pupils present Neck/C-Spine: COMMON NORMALS: supple and no JVD Chest: COMMONS NORMALS: normal inspection of the chest Resp: COMMON NORMALS: normal respiratory effort and clear to auscultation bilaterally AUSCULTATION: clear to auscultation bilaterally Cardio: COMMON NORMALS: no JVD, regular rate, regular rhythm, No gallops present (Cardio), No murmurs present (Cardio) and No rub (Cardio) RATE: regular rate RHYTHM: regular rhythm GI: COMMON NORMALS: Normal to inspection, nondistended, normoactive bowel sounds present, Soft to palpation and non-tender AUSCULTATION: Yes normoactive bowel sounds PALPATION: Yes Soft to palpation : COMMON NORMALS: Yes no CVA tenderness BLADDER/KIDNEY EXAM: Yes no CVA tenderness Back/Pelvis: COMMON NORMALS: no CVA tenderness and thoracic and lumbar spine normal to inspection Extremity: COMMON NORMALS: normal to inspection Neuro: COMMON NORMALS: patient oriented x3 and CN's II-XII intact bilaterally Psych: COMMON NORMALS: mental status grossly normal, Normal thought process present and cooperative THOUGHT PROCESS: Normal thought process present Skin: COMMON NORMALS: no rashes or lesions noted, turgor normal and no jaundice GENERAL SKIN EXAM: no rashes or lesions noted and turgor normal Course Vital Signs: Vital signs: Vital Signs Temperature 97.8 F 02/04/25 11:47 Pulse Rate 75 02/04/25 13:42 Respiratory Rate 18 02/04/25 11:47 Blood Pressure 157/94 02/04/25 11:47 Pulse Oximetry 98 02/04/25 13:42 Oxygen Delivery Me thod Room Air 02/04/25 11:47 MDM - GI Bleed Medical Decision Making Abdominal flatplate and upright films reveal constipation. No free air. This was read by the radiologist. CBC and CMP were normal. Patient is not orthostatic. Patient was reassured. Recommended he follow-up with his surgeon on Thursday to let him know what is going on. If he does develop any lightheadedness, weakness, chest pain, shortness of breath or worsening bleeding return to the emergency department in the meantime. He was discharged in stable condition. Lab Data 02/04/25 12:05 02/04/25 12:05 Radiology Impressions Chest/Abdomen X-ray 02/04/25 11:56 IMPRESSION: No acute findings. Moderate to large fecal burden Laboratory Results WBC 7.70 10^3/uL (3.29-11.43) 02/04/25 12:05 RBC 5.29 10^6/uL (3.85-5.65) 02/04/25 12:05 Hgb 15.70 g/dL (11.27-16.99) 02/04/25 12:05 Hct 46.6 % (37-53) 02/04/25 12:05 MCV 88.1 fl (82-101) 02/04/25 12:05 MCH 29.7 pg (27-33) 02/04/25 12:05 MCHC 33.7 g/dL (30-55) 02/04/25 12:05 RDW 12.8 % (12.1-15.1) 02/04/25 12:05 Plt Count 287 10^3/cmm (157-399) 02/04/25 12:05 MPV 9.4 fL (7.4-10.4) 02/04/25 12:05 Neut % (Auto) 51.0 % 02/04/25 12:05 Lymph % (Auto) 37.4 % 02/04/25 12:05 [place] % (Auto) 6.1 % 02/04/25 12:05 Eos % (Auto) 4.0 % 02/04/25 12:05 Baso % (Auto) 1.2 % 02/04/25 12:05 Neut # (Auto) 3.93 10^3/uL (1.8-7.7) 02/04/25 12:05 Lymph # (Auto) 2.9 10^3/uL (0.8-4.8) 02/04/25 12:05 [place] # (Auto) 0.5 10^3/uL (0.2-0.9) 02/04/25 12:05 Eos # (Auto) 0.3 10^3/uL (0.0-0.8) 02/04/25 12:05 Baso # (Auto) 0.1 10^3/uL (0.0-0.1) 02/04/25 12:05 Nucleated RBC % (auto) 0 % 02/04/25 12:05 Nucleated RBCs # 0.0 /100WBC 02/04/25 12:05 Sodium 140 mmol/L (136-145) 02/04/25 12:05 Potassium 4.7 mmol/L (3.5-5.1) 02/04/25 12:05 Chloride 104 mmol/L (98-107) 02/04/25 12:05 Carbon Dioxide 27 mmol/L (22-29) 02/04/25 12:05 Anion Gap 13.7 (5-19) 02/04/25 12:05 BUN 13 mg/dL (8-23) 02/04/25 12:05 Creatinine 0.8 mg/dL (0.7-1.2) 02/04/25 12:05 GFR Calculation 98.3 mL/min (90-130) 02/04/25 12:05 Glucose 122 mg/dL (65-115) H 02/04/25 12:05 Calculated Osmolality 291 mOsm/kg (285-295) 02/04/25 12:05 Calcium 9.2 mg/dL (8.5-10.5) 02/04/25 12:05 Total Bilirubin 0.5 mg/dL (0.15-1.2) 02/04/25 12:05 AST 39 U/L (0-40) 02/04/25 12:05 ALT 54 U/L (0-41) H 02/04/25 12:05 Alkaline Phosphatase 94 U/L (40-130) 02/04/25 12:05 Total Protein 7.6 g/dL (6.6-8.7) 02/04/25 12:05 Albumin 4.3 g/dL (3.5-5.2) 02/04/25 12:05 Globulin 3.3 g/dL (1.3-4.6) 02/04/25 12:05 All radiology interpretation(s) finalized by discharge Discharge Plan Discharge Patient Disposition: Home Clinical Impression: Lower gastrointestinal hemorrhage Condition: Stable Prescriptions: No Action All Day Allergy (cetirizine) 10 mg capsule 10 mg PO DAILY acetaminophen [Tylenol] 325 mg tablet 325 mg PO QID PRN (Reason: Pain, Mild) ibuprofen [IBU-200] 200 mg tablet 200 mg PO Q6H PRN (Reason: Pain, Mild) (DME) Bone growth stimulator See Rx Instructions .Route .MEDSUPPLY Qty: 1 0RF Rx Instructions: As directed baclofen 10 mg tablet 10 mg PO BID PRN (Reason: muscle spasm) Qty: 30 5RF Rx Instructions: neck pain/headache gabapentin 300 mg capsule 300 mg PO BID PRN (Reason: pain) 90 Days Qty: 180 2RF multivitamin Tablet 1 tab PO DAILY (DME) pen needle, diabetic [Easy Comfort Pen [place]] 31 gauge x 5/16 needle See Rx Instructions .Route Qty: 1200 0RF Rx Instructions: Use to inject insulin once daily (DME) pen needle, diabetic [Sure Comfort Pen Needle] 31 gauge x 5/16 needle See Rx Instructions .Route Qty: 100 11RF Rx Instructions: Use with insulin once daily (DME) True Metrix Glucose Test Strip Strip See Rx Instructions .ROUTE .COMPLEX Qty: 100 11RF Dose Instruction: Use to test blood sugars three times daily Rx Instructions: Use to test blood sugars three times daily cranberry extract 500 mg Capsule 500 mg PO BID Rx Instructions: administer with meals glipizide 10 mg tablet extended release 24hr 10 mg PO BID Ozempic 2 mg/dose (8 mg/3 mL) pen injector 2 mg SUBCUT Q7D Rx Instructions: Thursday Discharge Orders: Discharge ED (Routine); Ordered 02/04/25 Ordered By: Dalton Gordon Referrals: Angelica Keita MD [Primary Care Provider] - Patient Instructions: Gastrointestinal Bleeding (ED) Activity Restrictions/Additional Instructions: Contact the surgeon that did the colonoscopy on Thursday. If you develop any lightheadedness, chest pain, shortness of breath, weakness or worsening bleeding return to the emergency department. Print Language: Japanese Coding Level of Care Code ED Nurse Informatics Educator for Harini Sen
== END 2025-02-04 13:45 | disposition home or self-care (01) ==
PROVIDERS: Emergency Provider Emergency Medicine; PCP Family Medicine
DX: K92.2 Gastrointestinal hemorrhage, unspecified (principal); E11.9 Type 2 diabetes mellitus without complications
CPT/HCPCS: 36415; 74022; 80053; 85025; 99284

== ENCOUNTER → 2025-02-21 15:02 | Outpatient (BNVA) | payer MEDICARE, SELFPAY | PROVIDERS: PCP Family Medicine; Visit Provider Nurse Practitioner | DX: J02.9 Acute pharyngitis, unspecified (principal); R68.89 Other general symptoms and signs; M54.2 Cervicalgia; G89.29 Other chronic pain; M54.50 Low back pain, unspecified; G89.11 Acute pain due to trauma; M48.061 Spinal stenosis, lumbar region without neurogenic claudication; M54.16 Radiculopathy, lumbar region | CPT/HCPCS: 87071; 87400; 87880; 99214 ==

== ENCOUNTER → 2025-02-27 14:18 | Outpatient (BNVA) | payer MEDICARE, SELFPAY | PROVIDERS: PCP Family Medicine; Visit Provider Student in an Organized Health Care Education/Training Program | DX: Z09 Encounter for follow-up examination after completed treatment for conditions other than malignant neoplasm (principal) | CPT/HCPCS: 99214 ==

== ENCOUNTER → 2025-03-21 08:59 | Outpatient (BNVA) | payer MEDICARE, SELFPAY | PROVIDERS: PCP Family Medicine; Visit Provider Family Medicine | DX: E11.9 Type 2 diabetes mellitus without complications (principal) | CPT/HCPCS: 80048; 80061; 83036 ==

== ENCOUNTER → 2025-06-13 10:48 | Outpatient (BNVA) | payer MEDICARE, SELFPAY | PROVIDERS: PCP Family Medicine; Visit Provider Nurse Practitioner | DX: K92.1 Melena (principal) | CPT/HCPCS: 85025 ==

== ENCOUNTER 2025-06-16 10:13 | Outpatient (CLI) | payer MEDICARE, SELFPAY ==
--- NOTE | 2025-06-16 11:00 | CT_ITS ---
WS: [id number] CT ABDOMEN AND PELVIS WITH CONTRAST HISTORY: hematochezia TECHNIQUE: Imaging performed of the abdomen and pelvis with IV contrast. Single phase imaging of the abdomen. Coronal and sagittal reformats are submitted. All CT scans at [facility] use at least one of these dose optimization techniques: automated exposure control; mA and/or kV adjustment per patient size (includes targeted exams where dose is matched to clinical indication); or iterative reconstruction. IV CONTRAST: Omnipaque 350; 100 mL IV. Oral contrast: No DLP: 621.40 mGy.cm COMPARISON: 11/23/2019 Lower thorax: Benign granuloma LEFT lung base. No pneumonia. Heart is normal size. No hiatal hernia. Liver/biliary system: Normal size with no intrahepatic dilatation. Gallbladder: Normally distended gallbladder. There are numerous stones within the gallbladder. Largest stone measures 18 mm in diameter. No pericholecystic fluid. Pancreas: Normal size pancreas and pancreatic duct. No adjacent inflammation. Spleen: Normal size spleen. No mass or infarct. Adrenal glands: Normal. Right kidney: Normal. Left kidney: Normal. Aorta: Normal. Lymphadenopathy: None. Free fluid: None. GI tract: Nondistended stomach. No small bowel obstruction. Diffuse constipation. Normal appendix. Mild distal colonic diverticular disease. No evidence for acute diverticulitis. Short segment stricture near the anorectal junction. Wall thickening measuring up to 9 mm. This may be an area of contraction but neoplasm needs to be considered. Abdominal wall: Tiny umbilical hernia. Pelvis: No free fluid or adenopathy within the pelvis. Enlarged heterogeneous prostate gland encroaching into the base of the bladder. Mild diffuse bladder wall thickening is probably due to partial outlet obstruction. Bones: Prior posterior lumbar fusion from L4-S1. Interbody spacers at L4-5 and L5-S1. CT/CT abdomen pelvis w con* [id number] IMPRESSION: 1. Diffuse constipation. 2. Normal appendix. 3. Very short segment stricture near the anorectal junction. Early neoplasm ve rsus peristalsis. Recommend further evaluation by colonoscopy. 4. Cholelithiasis without acute cholecystitis. 5. No renal obstruction. 6. Markedly enlarged prostate gland.
[2025-06-16 11:14] LABS: Blood Urea Nitrogen 12 mg/dL (8-23)
== END 2025-06-16 10:14 | disposition home or self-care (01) ==
LOC: RAD 10:15
PROVIDERS: PCP Family Medicine; Visit Provider Student in an Organized Health Care Education/Training Program
DX: K92.1 Melena (principal); N18.9 Chronic kidney disease, unspecified; K59.09 Other constipation; K62.4 Stenosis of anus and rectum; R19.2 Visible peristalsis; K80.20 Calculus of gallbladder without cholecystitis without obstruction
CPT/HCPCS: 74177; 82565; 84520; 99214

== ENCOUNTER → 2025-06-19 11:29 | Outpatient (BNVA) | payer MEDICARE, SELFPAY | PROVIDERS: PCP Family Medicine; Visit Provider Student in an Organized Health Care Education/Training Program | DX: K92.1 Melena (principal) | CPT/HCPCS: 91111; 99214 ==

== ENCOUNTER → 2025-06-20 08:25 | Outpatient (BNVA) | payer MEDICARE, SELFPAY | PROVIDERS: PCP Family Medicine; Visit Provider Family Medicine | DX: K92.1 Melena (principal); E11.9 Type 2 diabetes mellitus without complications; R97.20 Elevated prostate specific antigen [PSA]; Z12.5 Encounter for screening for malignant neoplasm of prostate | CPT/HCPCS: 83036; 84153; 85025 ==

== ENCOUNTER → 2025-07-13 14:19 | Outpatient (BNVA) | payer MEDICARE, SELFPAY | PROVIDERS: PCP Family Medicine; Visit Provider Student in an Organized Health Care Education/Training Program | DX: K92.1 Melena (principal) | CPT/HCPCS: 99213 ==

== ENCOUNTER → 2025-09-19 08:50 | Outpatient (BNVA) | payer MEDICARE, SELFPAY | PROVIDERS: PCP Family Medicine; Visit Provider Family Medicine | DX: E11.9 Type 2 diabetes mellitus without complications (principal) | CPT/HCPCS: 80048; 83036 ==

== ENCOUNTER → 2025-10-17 14:45 | Outpatient (BNVA) | payer MEDICARE, SELFPAY | PROVIDERS: PCP Family Medicine; Visit Provider Orthopaedic Surgery | DX: M54.50 Low back pain, unspecified (principal); Z98.1 Arthrodesis status; M25.559 Pain in unspecified hip; M54.2 Cervicalgia; G89.11 Acute pain due to trauma | CPT/HCPCS: 72050; 72110; 73523; 99213 ==

== ENCOUNTER 2025-10-19 09:14 | Outpatient (CLI) | payer MEDICARE, SELFPAY ==
--- NOTE | 2025-10-19 09:30 | MR_ITS ---
WS: [id number] MRI LUMBAR SPINE NONCONTRAST TECHNIQUE: Sagittal T1, T2 and STIR imaging. Axial T1 and T2 imaging. CLINICAL INFORMATION: back pain COMPARISON: MRI 08/19/2024 FINDINGS: Mild lumbar curve. No acute compression. Pedicle screw fixation L4-S1. Anterior screw fixation L5-S1. Laminectomy defects with interbody fusion L4-5. Small seroma in the laminectomy defect similar to previous. No high-grade central canal stenosis. L1-L2: Mild annular bulging with mild central canal stenosis. Mild facet arthropathy. Foramen are patent. L2-L3: Mild annular bulging with mild central canal stenosis. Mild facet arthropathy. Foramen are patent. L3-L4: Mild annular bulging. Mild central canal stenosis. Slight effacement of the ventral thecal sac. Moderate facet arthropathy. Foramen are patent. Laminectomy defects. L4-L5: Postoperative changes. Spinal canal and foramen are patent. L5-S1: Postoperative changes. Spinal canal and foramen are patent. Laminectomy defects. Visualized pelvic bony structures: Normal. Paravertebral soft tissues: Normal. MR/MR lumbar spine wo con* [id number] IMPRESSION: 1. Overall no significant changes compared to previous. 2. Stable postoperative changes. 3. Mild annular bulging L1-2 and L2-3 with stable mild central canal stenosis worse at L2-3. 4. Stable mild central canal stenosis L3-4.
--- NOTE | 2025-10-19 10:15 | MRR_ITS ---
PROCEDURE INFORMATION: Exam: MR Cervical Spine Without Contrast Exam date and time: 10/19/2025 9:33 AM Age: 60 years old Clinical indication: Neck pain; Prior surgery; Surgery date: 6+ months; Surgery type: Csp fusion, lsp fusion, hernia. Date of surgery; Chronic pain for years, most recent injury x 2 months, pain worse since, bilat leg pain/numbness, lt hand numbness/tingling TECHNIQUE: Imaging protocol: Magnetic resonance imaging of the cervical spine without contrast. COMPARISON: MR cervical spin wo con* [id number] 07/29/2024 12:02 PM FINDINGS: Bones/joints: ACDF hardware from C5-C7. Mild reversal of the cervical lordosis at C6-C7. Posterior elements are aligned. No spondylolisthesis. Vertebral body heights are maintained. Focus of STIR intense signal in the superior aspect of T1 similar to prior exam. Spinal cord: The spinal cord is normal in caliber and signal. C2-C3: No disc bulge. Mild right uncovertebral joint spurring results in mild right foraminal narrowing. No left foraminal stenosis. C3-C4: Disc osteophyte complex results mild effacement of the ventral thecal sac. Right-sided uncovertebral joint spurring and facet arthrosis results in severe right foraminal narrowing. Minimal left foraminal stenosis. C4-C5: Disc osteophyte complex minimally effaces the ventral thecal sac. Uncovertebral joint spurring and facet arthrosis results in moderate right, mild left foraminal narrowing. C5-C6: Uncovertebral joint spurring and facet arthrosis results in moderate right foraminal narrowing. Minimal left foraminal narrowing. Small disc osteophyte complex without significant spinal canal stenosis. C6-C7: Uncovertebral joint spurring and facet arthrosis results in mild right, minimal left foraminal narrowing. Small disc osteophyte complex without significant spinal canal stenosis. C7-T1: Small disc osteophyte complex. No significant spinal canal or foraminal stenosis. Soft tissues: Unremarkable. MR/MR cervical spin wo con* [id number] IMPRESSION: No acute findings. Multilevel degenerative changes as above.
== END 2025-10-19 09:15 | disposition home or self-care (01) ==
LOC: RAD 09:16
PROVIDERS: PCP Family Medicine; Visit Provider Orthopaedic Surgery
DX: Z98.1 Arthrodesis status (principal); M50.121 Cervical disc disorder at C4-C5 level with radiculopathy; M50.322 Other cervical disc degeneration at C5-C6 level; M47.812 Spondylosis without myelopathy or radiculopathy, cervical region; M50.23 Other cervical disc displacement, cervicothoracic region
CPT/HCPCS: 72141; 72148

== ENCOUNTER → 2025-10-24 08:10 | Outpatient (BNVA) | payer MEDICARE, SELFPAY | PROVIDERS: PCP Family Medicine; Visit Provider Orthopaedic Surgery | DX: M48.061 Spinal stenosis, lumbar region without neurogenic claudication (principal); M51.360 Other intervertebral disc degeneration, lumbar region with discogenic back pain only; M47.896 Other spondylosis, lumbar region; Z98.1 Arthrodesis status; R20.0 Anesthesia of skin; Z51.89 Encounter for other specified aftercare | CPT/HCPCS: 99214 ==